=== PATIENT | male | born 1975 | race Caucasian/White ===

== ENCOUNTER → 2020-05-24 15:34 | Outpatient (BNVA) | payer MEDICARE, MEDICAID, SELFPAY | PROVIDERS: PCP Internal Medicine; Visit Provider Family Medicine Adult Medicine | DX: M47.814 Spondylosis without myelopathy or radiculopathy, thoracic region (principal); M47.816 Spondylosis without myelopathy or radiculopathy, lumbar region; Z79.891 Long term (current) use of opiate analgesic | CPT/HCPCS: 99214 ==

== ENCOUNTER → 2020-07-21 10:59 | Outpatient (BNVA) | payer MEDICARE, MEDICAID, SELFPAY | PROVIDERS: PCP Internal Medicine; Referring Provider Internal Medicine; Visit Provider Family Medicine Adult Medicine | DX: M47.816 Spondylosis without myelopathy or radiculopathy, lumbar region (principal); M47.814 Spondylosis without myelopathy or radiculopathy, thoracic region | CPT/HCPCS: 99212 ==

== ENCOUNTER → 2020-09-15 11:24 | Outpatient (BNVA) | payer MEDICARE, MEDICAID, SELFPAY | PROVIDERS: PCP Internal Medicine; Referring Provider Internal Medicine; Visit Provider Family Medicine Adult Medicine | DX: M47.816 Spondylosis without myelopathy or radiculopathy, lumbar region (principal); M47.814 Spondylosis without myelopathy or radiculopathy, thoracic region; Z79.891 Long term (current) use of opiate analgesic | CPT/HCPCS: 99212 ==

== ENCOUNTER → 2020-09-21 14:36 | Outpatient (BNVA) | payer MEDICARE, MEDICAID, SELFPAY | PROVIDERS: PCP Internal Medicine; Visit Provider Anesthesiology | DX: M47.816 Spondylosis without myelopathy or radiculopathy, lumbar region (principal); M47.814 Spondylosis without myelopathy or radiculopathy, thoracic region; M53.3 Sacrococcygeal disorders, not elsewhere classified | CPT/HCPCS: Q3014 ==

== ENCOUNTER → 2020-10-18 13:54 | Outpatient (BNVA) | payer MEDICARE, MEDICAID, SELFPAY | PROVIDERS: PCP Internal Medicine; Visit Provider Family Medicine Adult Medicine | DX: M47.816 Spondylosis without myelopathy or radiculopathy, lumbar region (principal); M47.814 Spondylosis without myelopathy or radiculopathy, thoracic region; Z79.899 Other long term (current) drug therapy | CPT/HCPCS: 99212 ==

== ENCOUNTER 2020-11-29 06:05 | Outpatient (REF) | payer MEDICARE, MEDICAID, SELFPAY ==
--- NOTE | ~2020-11-29 | FL_ITS ---
EXAMINATION: XR FLUOROSCOPY WITH IMAGES CLINICAL INFORMATION: M53.3 - Sacrococcygeal disorders COMPARISON: Radiographs sacroiliac joints 07/14/2018 TECHNIQUE: Fluoroscopy performed by Graciela Cheatham NP. Fluoroscopy time: 0.2 minutes DAP: 1.72 Gycm2 Images: 2 FINDINGS: There is a spinal needle with tip just beyond the anterior cortex lower coccyx. There is contrast seen in the presacral coccygeal soft tissues. No visible vascular communication. FL/FL guidance in treatment room IMPRESSION: Fluoroscopy for pain management procedure.
== END 2020-11-29 06:06 | disposition home or self-care (01) ==
LOC: HO.RADIR 06:05
PROVIDERS: Visit Provider Anesthesiology
DX: M53.3 Sacrococcygeal disorders, not elsewhere classified (principal); M47.816 Spondylosis without myelopathy or radiculopathy, lumbar region; M47.814 Spondylosis without myelopathy or radiculopathy, thoracic region; Z88.8 Allergy status to other drugs, medicaments and biological substances
CPT/HCPCS: 64999; 77002; J3300

== ENCOUNTER → 2020-12-13 08:34 | Outpatient (BNVA) | payer MEDICARE, MEDICAID, SELFPAY | PROVIDERS: PCP Internal Medicine; Visit Provider Family Medicine Adult Medicine | DX: M47.816 Spondylosis without myelopathy or radiculopathy, lumbar region (principal); M47.814 Spondylosis without myelopathy or radiculopathy, thoracic region; M53.3 Sacrococcygeal disorders, not elsewhere classified | CPT/HCPCS: 99212 ==

== ENCOUNTER 2020-12-13 09:05 | Emergency (ER) | payer MEDICARE, MEDICAID, SELFPAY ==
[2020-12-13 09:12] VITALS: BP 104/74; PULSE 82; RESP 18; TEMP 36.5; O2SAT 98; BMI 27.3
--- NOTE | 2020-12-13 09:21 | ED.WOUNDLAC ---
HPI - Wound/Laceration General Chief Complaint: Wound/Laceration Stated Complaint: finger laceration Time Seen by Provider: 12/13/20 09:20 Source: patient Mode of arrival: ambulatory Limitations: no limitations History of Present Illness HPI narrative: 45 y/o male with history of chronic Lyme Disease, bipolar disorder, chronic back pain s/p recent injections on Suboxone 24 mg per day who presents to the ED with a left index finger laceration that he accidentally sustained while using his pocket knife this morning. He states there was a lot of bleeding initially and he had a hard time stopping it. With direct pressure, bleeding was stopped. He is able to fully bend and extend his finger. He has no numbness, tingling or weakness. Tdap is not up to date. Onset (ago): hour(s) (2) Place: home Patient tetanus UTD: No Context: accidental Associated symptoms: pain Treatments prior to arrival: bandage Related Data Home Medications Medication Instructions Recorded Confirmed clonazepam 0.5 mg tablet 0.5 mg PO TID PRN 05/14/20 05/24/20 docusate sodium 100 mg capsule 100 mg PO BID 05/14/20 05/24/20 fluticasone propionate 50 2 spray INTRANASAL DAILY 05/14/20 05/24/20 mcg/actuation nasal spray,suspension lactulose 10 gram/15 mL oral 5 ml PO Q12H 05/14/20 05/24/20 solution omeprazole 20 mg capsule,delayed 20 mg PO QAM 05/14/20 05/24/20 release sildenafil 100 mg tablet 100 mg PO DAILY PRN 05/14/20 05/24/20 tamsulosin 0.4 mg capsule 0.4 mg PO BEDTIME 05/14/20 05/24/20 omeprazole 40 mg capsule,delayed 40 mg PO DAILY 09/21/20 release sucralfate 100 mg/mL oral 10 ml PO 09/21/20 suspension Previous Rx's Medication Instructions Recorded naproxen 500 mg tablet 500 mg PO BID 90 Days #180 tab 08/15/20 buprenorphine 8 mg-naloxone 2 mg 1 film BUCCAL Q8H 30 Days #90 ea 12/13/20 sublingual film cephalexin 500 mg PO TID #9 cap 12/13/20 cyclobenzaprine 10 mg tablet 10 mg PO Q8H 90 Days #270 tab 05/04/21 topiramate 50 mg tablet 50 mg PO TID 90 Days #270 tab 12/13/20 Allergies Allergy/AdvReac Type Severity Reaction Status Date / Time 1st Medx-Patch/ Lidocaine Allergy Unknown Unknown Uncoded 10/18/20 14:18 NSAIDS Allergy Unknown Unknown Uncoded 10/18/20 14:18 Review of Systems Review of Systems: Constitutional: No Fever, No Chills Gastrointestinal: No Nausea, No Vomiting Musculoskeletal: + joint pain, No Myalgias Skin: + Skin Lesions, No rash Neuro: No Weakness, No Numbness Heme/Lymph: No Bruising PMFSH Past Medical History Attestation statement: The following information was validated with the patient. Medical History Coccydynia History of bipolar disorder Lumbar spondylosis Lyme disease Thoracic spondylosis Social History Social History Advance Directives: Yes Advance Directives Information Provided: Yes Advance Directives on File: No Physical Exam Vital Signs: Vital Signs: Last Vital Signs Temp 97.7 F 12/13/20 09:12 Pulse 82 12/13/20 09:12 Resp 18 12/13/20 09:12 BP 104/74 12/13/20 09:12 Pulse Ox 98 12/13/20 09:12 Body Mass Index 27.3 Appearance: Alert. Oriented X3. No acute distress. HEENT: normal inspection CVS: Normal heart rate and rhythm. Pulses normal. Respiratory: No respiratory distress. Skin: Skin warm and dry. Normal skin color. Normal skin turgor. No rashes. Extremities: dorsal aspect of left index finger with 1.5 cm superficial laceration at the base, deep structures infect. full ROM of all fingers. NV intact distally. Neuro: Oriented X 3. No motor deficit. No sensory deficit. Course Course Course Narrative: 45 y/o male presenting with superficial laceration to left index finger. Amenable to suturing. 2 sutures were placed. TDAP given. Will give ppx Keflex give knife was dirty. Counseled on wound management. Stable for discharge. Procedures Laceration Laceration 1: Site: hand Side (If applicable): left Size (cm): 1.5 Description: linear Depth: simple, single layer Local Anesthetic: lidocaine 2% Amount of anesthesia used (mL): 1 Pre-repair: irrigated extensively and deep structures intact Skin layer closed with: nylon Size (cm): 5-0 Number of sutures: 2 Technique: simple, interrupted Critical Care Time Critical Care Time Critical Care Time: No Discharge Plan Discharge Clinical Impression: Laceration Patient Disposition: Home, Self-Care Instructions: Finger Laceration (ED) Additional Instructions: Two sutures were placed in your laceration. You will need then removed in 7-10 days. Come back to the ER or see your doctor for this. Do not get your wound wet for the next 24 hours. After that you may briefly wash with soap and water, then pat dry. Recommend using Bacitracin or Neosporin 2 times per day. Keep clean and covered. If you develop increased pain, redness, drainage of pus or any other concerning symptom come back to the ER for further evaluation. Prescriptions: New cephalexin 500 mg capsule 500 mg PO TID Qty: 9 RF: 0 No Action naproxen 500 mg tablet 500 mg PO BID 90 Days Qty: 180 RF: 1 omeprazole 20 mg capsule,delayed release(DR/EC) 20 mg PO QAM RF: 0 clonazepam 0.5 mg tablet 0.5 mg PO TID PRNRF: 0 lactulose 10 gram/15 mL solution 5 ml PO Q12H RF: 0 fluticasone propionate 50 mcg/actuation spray,suspension 2 spray intranasal DAILY RF: 0 docusate sodium 100 mg capsule 100 mg PO BID RF: 0 sildenafil 100 mg tablet 100 mg PO DAILY PRNRF: 0 tamsulosin 0.4 mg capsule 0.4 mg PO BEDTIME RF: 0 omeprazole 40 mg capsule,delayed release(DR/EC) 40 mg PO DAILY RF: 0 sucralfate 100 mg/mL suspension 10 ml PO RF: 0 buprenorphine-naloxone [Suboxone] 8-2 mg film 1 film buccal Q8H 30 Days Qty: 90 RF: 1 cyclobenzaprine 10 mg tablet 10 mg PO Q8H 90 Days Qty: 270 RF: 1 topiramate 50 mg tablet 50 mg PO TID 90 Days Qty: 270 RF: 0 Interventions: ED Discharge Assessment Last Done: 12/13/20 09:55 Discharge Date/Time: 12/13/20 09:56
[2020-12-13] MEDS: Diphth,Pertus(ACell),Tet Adult 0.5 ML SYRINGE IM (09:50)
[2020-12-13] MEDS: Lidocaine HCl 2 % MPF 5 ML VIAL INFILTRATI (09:50)
== END 2020-12-13 09:56 | disposition home or self-care (01) ==
PROVIDERS: Emergency Provider Emergency Medicine; PCP Internal Medicine
DX: S61.211A Laceration without foreign body of left index finger without damage to nail, initial encounter (principal); W26.0XXA Contact with knife, initial encounter; Y93.9 Activity, unspecified; Y92.9 Unspecified place or not applicable; Y99.9 Unspecified external cause status
CPT/HCPCS: 12001; 90471; 90715; 99283; 99284

== ENCOUNTER → 2021-01-02 09:44 | Outpatient (BNVA) | payer MEDICARE, MEDICAID, SELFPAY | PROVIDERS: PCP Internal Medicine; Visit Provider Anesthesiology | DX: M47.816 Spondylosis without myelopathy or radiculopathy, lumbar region (principal); M47.814 Spondylosis without myelopathy or radiculopathy, thoracic region; M53.3 Sacrococcygeal disorders, not elsewhere classified | CPT/HCPCS: 99212 ==

== ENCOUNTER → 2021-01-10 08:59 | Outpatient (BNVA) | payer MEDICARE, MEDICAID, SELFPAY | PROVIDERS: PCP Internal Medicine; Visit Provider Family Medicine Adult Medicine | DX: M47.816 Spondylosis without myelopathy or radiculopathy, lumbar region (principal); M47.814 Spondylosis without myelopathy or radiculopathy, thoracic region; M53.3 Sacrococcygeal disorders, not elsewhere classified; Z79.899 Other long term (current) drug therapy | CPT/HCPCS: 99212 ==

== ENCOUNTER → 2021-02-14 09:28 | Outpatient (BNVA) | payer MEDICARE, MEDICAID, SELFPAY | PROVIDERS: PCP Internal Medicine; Visit Provider Family Medicine Adult Medicine | DX: M47.816 Spondylosis without myelopathy or radiculopathy, lumbar region (principal); M47.814 Spondylosis without myelopathy or radiculopathy, thoracic region; M53.3 Sacrococcygeal disorders, not elsewhere classified | CPT/HCPCS: 99212 ==

== ENCOUNTER 2021-02-21 05:47 | Outpatient (REF) | payer MEDICARE, MEDICAID, SELFPAY ==
--- NOTE | ~2021-02-21 | FL_ITS ---
EXAMINATION: XR FLUOROSCOPY WITH IMAGES CLINICAL INFORMATION: Sacrococcygeal disorder versus. COMPARISON: None. TECHNIQUE: Fluoroscopy performed by Graciela Cheatham. Fluoroscopy time: 0.1 minutes DAP: 2.30 Gycm2 Images: 2 FINDINGS: 2 images of the cervical spine reveal needle position centrally in the presacral region with contrast opacifying the sacral soft tissues. No bony abnormality seen involving the sacrum. FL/FL guidance in treatment room IMPRESSION: Fluoroscopy provided to the referring physician as requested.
== END 2021-02-21 05:48 | disposition home or self-care (01) ==
LOC: HO.RADIR 05:47
PROVIDERS: Visit Provider Anesthesiology
DX: M47.816 Spondylosis without myelopathy or radiculopathy, lumbar region (principal); M47.814 Spondylosis without myelopathy or radiculopathy, thoracic region; M53.3 Sacrococcygeal disorders, not elsewhere classified
CPT/HCPCS: 64999; J3300; Q9967

== ENCOUNTER → 2021-03-14 08:05 | Outpatient (BNVA) | payer MEDICARE, MEDICAID, SELFPAY | PROVIDERS: PCP Internal Medicine; Visit Provider Family Medicine Adult Medicine | DX: M47.816 Spondylosis without myelopathy or radiculopathy, lumbar region (principal); M47.814 Spondylosis without myelopathy or radiculopathy, thoracic region; M53.3 Sacrococcygeal disorders, not elsewhere classified | CPT/HCPCS: 99212 ==

== ENCOUNTER → 2021-03-29 09:07 | Outpatient (BNVA) | payer MEDICARE, MEDICAID, SELFPAY | PROVIDERS: PCP Internal Medicine; Visit Provider Anesthesiology | DX: M47.816 Spondylosis without myelopathy or radiculopathy, lumbar region (principal); M47.814 Spondylosis without myelopathy or radiculopathy, thoracic region; M53.3 Sacrococcygeal disorders, not elsewhere classified | CPT/HCPCS: Q3014 ==

== ENCOUNTER → 2021-04-11 15:57 | Outpatient (BNVA) | payer MEDICARE, MEDICAID, SELFPAY | PROVIDERS: PCP Internal Medicine; Visit Provider Family Medicine Adult Medicine | DX: M47.816 Spondylosis without myelopathy or radiculopathy, lumbar region (principal); M47.814 Spondylosis without myelopathy or radiculopathy, thoracic region | CPT/HCPCS: 99212 ==

== ENCOUNTER → 2021-05-09 09:48 | Outpatient (BNVA) | payer MEDICARE, MEDICAID, SELFPAY | PROVIDERS: PCP Internal Medicine; Visit Provider Family Medicine Adult Medicine | DX: Z51.81 Encounter for therapeutic drug level monitoring (principal); M47.814 Spondylosis without myelopathy or radiculopathy, thoracic region | CPT/HCPCS: 99212 ==

== ENCOUNTER 2021-05-16 06:32 | Outpatient (REF) | payer MEDICARE, MEDICAID, SELFPAY ==
--- NOTE | ~2021-05-16 | FL_ITS ---
EXAMINATION: XR FLUOROSCOPY WITH IMAGES CLINICAL INFORMATION: Sacrococcygeal disorders COMPARISON: 02/21/2021 TECHNIQUE: Fluoroscopy performed by Dr. Luis Miranda. Fluoroscopy time: 0.2 minutes DAP: 2.54 Gycm2 Images: 1 FINDINGS: Single lateral image of the sacrococcygeal articulation demonstrates a needle entering from a posterior approach with contrast in the presacral region. FL/FL guidance in treatment room IMPRESSION: Intraoperative fluoroscopy provided as above. Please see operative report.
== END 2021-05-16 06:33 | disposition home or self-care (01) ==
LOC: HO.RADIR 06:32
PROVIDERS: Visit Provider Anesthesiology
DX: M47.816 Spondylosis without myelopathy or radiculopathy, lumbar region (principal); M47.814 Spondylosis without myelopathy or radiculopathy, thoracic region; M53.3 Sacrococcygeal disorders, not elsewhere classified; A69.20 Lyme disease, unspecified; Z88.8 Allergy status to other drugs, medicaments and biological substances
CPT/HCPCS: 64999; J3300; Q9967

== ENCOUNTER → 2021-06-06 10:36 | Outpatient (BNVA) | payer MEDICARE, MEDICAID, SELFPAY | PROVIDERS: PCP Pediatrics; Visit Provider Family Medicine Adult Medicine | DX: Z51.81 Encounter for therapeutic drug level monitoring (principal) | CPT/HCPCS: 99211 ==

== ENCOUNTER → 2021-06-14 08:58 | Outpatient (BNVA) | payer MEDICARE, MEDICAID, SELFPAY | PROVIDERS: PCP Pediatrics; Visit Provider Anesthesiology | DX: M47.816 Spondylosis without myelopathy or radiculopathy, lumbar region (principal); M47.814 Spondylosis without myelopathy or radiculopathy, thoracic region; M53.3 Sacrococcygeal disorders, not elsewhere classified | CPT/HCPCS: 99212 ==

== ENCOUNTER → 2021-06-29 14:18 | Outpatient (BNVA) | payer MEDICARE, MEDICAID, SELFPAY | PROVIDERS: PCP Pediatrics; Visit Provider Family Medicine Adult Medicine | DX: M47.816 Spondylosis without myelopathy or radiculopathy, lumbar region (principal); M47.814 Spondylosis without myelopathy or radiculopathy, thoracic region; M53.3 Sacrococcygeal disorders, not elsewhere classified; F31.9 Bipolar disorder, unspecified; Z88.4 Allergy status to anesthetic agent; Z88.8 Allergy status to other drugs, medicaments and biological substances; Z79.899 Other long term (current) drug therapy | CPT/HCPCS: 99212 ==

== ENCOUNTER 2021-07-11 06:48 | Outpatient (REF) | payer MEDICARE, MEDICAID, SELFPAY ==
--- NOTE | ~2021-07-11 | FL_ITS ---
EXAMINATION: XR FLUOROSCOPY WITH IMAGES CLINICAL INFORMATION: M53.3 - Sacrococcygeal disorders, not elsewhere classified COMPARISON: Fluoroscopic spot views 05/16/2021, 6 02/21/2021 TECHNIQUE: Fluoroscopy performed by Dr. Luis Miranda. Fluoroscopy time: 0.7 minutes DAP: 2.51 Gycm2 Images: 8 FINDINGS: There are spinal needles overlying the bilateral outer L2, L3, L4, and L5 neural foramen. There is contrast seen in the respective nerve sheaths. Some early transforaminal epidural extension is suggested. No visible vascular communication. There are degenerative changes with variable vertebral body spurring. FL/FL guidance in treatment room IMPRESSION: Fluoroscopy for pain management procedures.
== END 2021-07-11 06:49 | disposition home or self-care (01) ==
LOC: HO.RADIR 06:48
PROVIDERS: Visit Provider Anesthesiology
DX: M47.816 Spondylosis without myelopathy or radiculopathy, lumbar region (principal); M47.814 Spondylosis without myelopathy or radiculopathy, thoracic region; M53.3 Sacrococcygeal disorders, not elsewhere classified
CPT/HCPCS: 64493; 64494; Q9967

== ENCOUNTER → 2021-07-20 09:17 | Outpatient (BNVA) | payer MEDICARE, MEDICAID, SELFPAY | PROVIDERS: PCP Pediatrics; Visit Provider Anesthesiology | DX: M47.816 Spondylosis without myelopathy or radiculopathy, lumbar region (principal); M47.814 Spondylosis without myelopathy or radiculopathy, thoracic region; M53.3 Sacrococcygeal disorders, not elsewhere classified | CPT/HCPCS: Q3014 ==

== ENCOUNTER 2021-08-08 06:00 | Outpatient (REF) | payer MEDICARE, MEDICAID, SELFPAY ==
--- NOTE | ~2021-08-08 | FL_ITS ---
EXAMINATION: XR FLUOROSCOPY WITH IMAGES CLINICAL INFORMATION: M47.816 - Spondylosis without myelopathy or radiculopathy COMPARISON: Fluoroscopic spot views 07/11/2021. TECHNIQUE: Fluoroscopy performed by Dr. Luis Miranda. Fluoroscopy time: 1.2 minutes DAP: 9.87 Gycm2 Images: 2 FINDINGS: There are needles overlying the bilateral outer L2, L3, L4, and L5 neural foramen. FL/FL guidance in treatment room IMPRESSION: Fluoroscopy for pain management procedures.
== END 2021-08-08 06:01 | disposition home or self-care (01) ==
LOC: HO.RADIR 06:00
PROVIDERS: Visit Provider Anesthesiology
DX: M47.816 Spondylosis without myelopathy or radiculopathy, lumbar region (principal); M47.814 Spondylosis without myelopathy or radiculopathy, thoracic region; M53.3 Sacrococcygeal disorders, not elsewhere classified
CPT/HCPCS: 64635; 64636; J3300

== ENCOUNTER 2021-09-05 08:24 | Outpatient (REF) | payer MEDICARE, MEDICAID, SELFPAY ==
--- NOTE | ~2021-09-05 | FL_ITS ---
EXAMINATION: XR FLUOROSCOPY WITH IMAGES CLINICAL INFORMATION: Sacrococcygeal disorder. COMPARISON: None. TECHNIQUE: Fluoroscopy performed by Graciela Cheatham. Fluoroscopy time: 0.1 minutes DAP: 1.12 Gycm2 Images: 1 FINDINGS: There is needle positioned in the lower sacrococcygeal space with contrast opacifying the space on a single lateral view. No gross bony abnormality. FL/FL guidance in treatment room IMPRESSION: Fluoroscopy was provided to referring physician for pain management
== END 2021-09-05 08:25 | disposition home or self-care (01) ==
LOC: HO.RADIR 08:24
PROVIDERS: Visit Provider Anesthesiology
DX: M47.816 Spondylosis without myelopathy or radiculopathy, lumbar region (principal); M47.814 Spondylosis without myelopathy or radiculopathy, thoracic region; M53.3 Sacrococcygeal disorders, not elsewhere classified
CPT/HCPCS: 64999; 76000; J3300; Q9967

== ENCOUNTER → 2021-09-19 08:01 | Outpatient (BNVA) | payer MEDICARE, MEDICAID, SELFPAY | PROVIDERS: PCP Pediatrics; Visit Provider Anesthesiology | DX: M47.816 Spondylosis without myelopathy or radiculopathy, lumbar region (principal); M47.814 Spondylosis without myelopathy or radiculopathy, thoracic region; M53.3 Sacrococcygeal disorders, not elsewhere classified | CPT/HCPCS: Q3014 ==

== ENCOUNTER → 2022-04-25 08:39 | Outpatient (BNVA) | payer MEDICARE, MEDICAID, SELFPAY | PROVIDERS: PCP Pediatrics; Visit Provider Anesthesiology | DX: M47.816 Spondylosis without myelopathy or radiculopathy, lumbar region (principal); M47.814 Spondylosis without myelopathy or radiculopathy, thoracic region; M53.3 Sacrococcygeal disorders, not elsewhere classified; M46.1 Sacroiliitis, not elsewhere classified; G89.4 Chronic pain syndrome | CPT/HCPCS: 99212 ==

== ENCOUNTER 2022-05-15 06:04 | Outpatient (REF) | payer MEDICARE, MEDICAID, SELFPAY ==
--- NOTE | ~2022-05-15 | FL_ITS ---
EXAMINATION: XR FLUOROSCOPY WITH IMAGES CLINICAL INFORMATION: M53.3 - Sacrococcygeal disorders, not elsewhere classified COMPARISON: Radiographs sacroiliac joints 07/14/2018 TECHNIQUE: Fluoroscopy performed by Dr. Luis Miranda. Fluoroscopy time: 0.2 minutes. Cumulative Dose: 5.28 mGy. DAP: 1.44 Gy-cm2. Images: 2. FINDINGS: Spinal needle overlies mid to lower left SI joint and a spinal needle overlies the mid to lower right SI joint. There is contrast in the periarticular soft tissues with probable early intra-articular contrast. No vasculature communication appreciated. FL/FL guidance in treatment room IMPRESSION: Fluoroscopy for pain management procedures.
== END 2022-05-15 06:05 | disposition home or self-care (01) ==
LOC: CF 06:04
PROVIDERS: Visit Provider Anesthesiology
DX: M53.3 Sacrococcygeal disorders, not elsewhere classified (principal); M46.1 Sacroiliitis, not elsewhere classified
CPT/HCPCS: 27096; Q9965

== ENCOUNTER → 2022-05-17 08:33 | Outpatient (BNVA) | payer MEDICARE, MEDICAID, SELFPAY | PROVIDERS: PCP Pediatrics; Visit Provider Anesthesiology | DX: M47.816 Spondylosis without myelopathy or radiculopathy, lumbar region (principal); M47.814 Spondylosis without myelopathy or radiculopathy, thoracic region; M53.3 Sacrococcygeal disorders, not elsewhere classified; M46.1 Sacroiliitis, not elsewhere classified; G89.4 Chronic pain syndrome | CPT/HCPCS: 99212 ==

== ENCOUNTER 2022-08-10 05:59 | Day surgery (SDC) | payer MEDICARE, MEDICAID, SELFPAY ==
--- NOTE | 2022-08-09 09:13 | HO.ANESPROP2 ---
Documented by User: Gisselle Valadez NP 08/09/22 09:17 HPI - Anesthesia Eval Consult details Narrative: 46yo M for Right Sacroiliac Joint Stabilization with Fusion Suboxone daily for chronic pain PMFSH Active Problems Active Problems: All Active Problems (Updated 08/03/22 @ 13:40 by Allegra Ontiveros, RN) Sacroiliitis (Acute) Sacroiliac joint dysfunction (Acute) Chronic pain syndrome (Acute) Dental abscess (Acute) Coccydynia (Acute) Lumbar spondylosis (Acute) Thoracic spondylosis (Acute) Past Medical History Medical History (Updated 08/03/22 @ 13:40 by Allegra Ontiveros, RN) Coccydynia Dental abscess Enlarged prostate GERD (gastroesophageal reflux disease) History of alcohol use History of bipolar disorder Hx of pancreatitis Lumbar spondylosis Lyme disease Thoracic spondylosis Surgical History Surgical History (Updated 08/03/22 @ 13:38 by Allegra Ontiveros RN) History of tonsillectomy and adenoidectomy Hx of oral surgery Social History Social History Patient Tobacco Use Status: Former Tobacco user Use of substances other than those prescribed or required for medical reasons: No Are you DNR?: No Advance Directives: No Advance Directives Information Provided: Yes Meds Allergies Allergy/AdvReac Type Severity Reaction Status Date / Time NSAIDS (Non-Steroidal Allergy Intermediate Abdominal Verified 08/03/22 12:59 Anti-Inflamma Pain/Bleeding Home Medications Medication Instructions Recorded Confirmed Last Taken Type clonazepam 0.5 mg tablet 0.5 mg PO TID PRN Anxiety 05/14/20 08/03/22 08/10/22 History fluticasone propionate 50 2 spray intranasal DAILY 05/14/20 08/03/22 08/10/22 History mcg/actuation nasal spray,suspension lactulose 10 gram/15 mL oral 5 ml PO Q12H 05/14/20 08/03/22 Unknown History solution sildenafil 100 mg tablet 100 mg PO DAILY PRN Sexual Activity 05/14/20 08/03/22 Unknown History tamsulosin 0.4 mg capsule 0.4 mg PO BEDTIME 05/14/20 08/03/22 Unknown History omeprazole 40 mg capsule,delayed 40 mg PO DAILY 09/21/20 08/03/22 08/10/22 History release bisacodyl 5 mg tablet,delayed 5 mg PO BID PRN constipation 06/14/21 08/03/22 Unknown History release buprenorphine 4 mg-naloxone 1 mg 5 mg sublingual Q8H pain 08/08/21 08/03/22 Unknown History sublingual film buprenorphine HCl 600 mcg buccal 600 mcg buccal Q12H 08/08/21 08/03/22 Unknown History film ([place]uca) trazodone 100 mg tablet 200 mg PO BEDTIME PRN as directed 08/08/21 08/03/22 Unknown History topiramate 50 mg tablet 50 mg PO BEDTIME 08/03/22 08/03/22 Unknown History Exam Exam Date and Time: August 09, [id number] Assessment and Plan Assessment Anesthesia Assessment: Chart Reviewed Documented by User: Huy Devine MD 08/10/22 08:05 [facility] Past Medical History Medical History (Updated 08/03/22 @ 13:40 by Allegra Ontiveros, RN) Coccydynia Dental abscess Enlarged prostate GERD (gastroesophageal reflux disease) History of alcohol use History of bipolar disorder Hx of pancreatitis Lumbar spondylosis Lyme disease Thoracic spondylosis Family History Family history of problems with anesthesia: No Surgical History Surgical History (Updated 08/03/22 @ 13:38 by Allegra Ontiveros, RN) History of tonsillectomy and adenoidectomy Hx of oral surgery History of Problems with Anesthesia: No Social History Social History Patient Tobacco Use Status: Former Tobacco user Use of substances other than those prescribed or required for medical reasons: No Are you DNR?: No Advance Directives: No Advance Directives Information Provided: Yes Meds Allergies Allergy/AdvReac Type Severity Reaction Status Date / Time NSAIDS (Non-Steroidal Allergy Intermediate Abdominal Verified 08/03/22 12:59 Anti-Inflamma Pain/Bleeding Home Medications Medication Instructions Recorded Confirmed Last Taken Type clonazepam 0.5 mg tablet 0.5 mg PO TID PRN Anxiety 05/14/20 08/03/22 08/10/22 History fluticasone propionate 50 2 spray intranasal DAILY 05/14/20 08/03/22 08/10/22 History mcg/actuation nasal spray,suspension lactulose 10 gram/15 mL oral 5 ml PO Q12H 05/14/20 08/03/22 Unknown History solution sildenafil 100 mg tablet 100 mg PO DAILY PRN Sexual Activity 05/14/20 08/03/22 Unknown History tamsulosin 0.4 mg capsule 0.4 mg PO BEDTIME 05/14/20 08/03/22 Unknown History omeprazole 40 mg capsule,delayed 40 mg PO DAILY 09/21/20 08/03/22 08/10/22 History release bisacodyl 5 mg tablet,delayed 5 mg PO BID PRN constipation 06/14/21 08/03/22 Unknown History release buprenorphine 4 mg-naloxone 1 mg 5 mg sublingual Q8H pain 08/08/21 08/03/22 Unknown History sublingual film buprenorphine HCl 600 mcg buccal 600 mcg buccal Q12H 08/08/21 08/03/22 Unknown History film ([place]uca) trazodone 100 mg tablet 200 mg PO BEDTIME PRN as directed 08/08/21 08/03/22 Unknown History topiramate 50 mg tablet 50 mg PO BEDTIME 08/03/22 08/03/22 Unknown History Exam Airway Mallampati Class: II TM Dist: >3cm Neck ROM: Full Denture: Upper and Lower Heart: rrr Lungs: clear Assessment and Plan Final Anesthetic Review Family History of Problems with Anesthesia: No History of Problems with Anesthesia: No NPO: Yes ASA Class: II Final Preanesthetic Review: No Changes in Pt Med Stat, Meds/Allgs Chart Reviewed, Consent Obtained/Reviewed and Anes Risks/Benef Reviewed Patient Risk: Intermediate Procedure Risk: Low Anesthetic Plan Anesthetic Plan: GA Disposition: Standard PACU
--- NOTE | 2022-08-09 16:55 | MHC.SHP ---
Pre-Procedural Eval Section A Date of Service: 08/09/22 The patient is an INPATIENT: No Changes since office visit: Yes Patient answered all questions The History & Physical has been completed within 30 days and I have reviewed it.: No Section B Chief Complaint: Sacroiliitis, not elsewhere classified Details of Present Illness: as above Relevant Family History (Specify if Yes): No Relevant Social History: None Present Medications: None Medical History: No relevant PMH History of Previous Operations: Relevant previous surgery/procedure and date(s) Allergies: Allergies Allergy/AdvReac Type Severity Reaction Status Date / Time NSAIDS (Non-Steroidal Allergy Intermediate Abdominal Verified 08/03/22 12:59 Anti-Inflamma Pain/Bleeding Review of Systems Sugical H&P ROS: Negative: Constitution, Cardiovascular, Respiratory, Neurological, Psychiatric, Hem-Onc, Allergic/Immunologic, Gastrointestinal, Genitourinary, Musculoskeletal, Integumentary, Endocrine and Eyes/Ears/Nose/Throat Exam Surgical H&P Exam: Normal: HEENT, Normal: Heart, Normal: Lungs, Normal: Extremities, Normal: Abdomen, Normal: Skin and Normal: Neurological Plan Diagnosis/Plan: Unchanged I have reviewed the history and physical and performed a pertinent physical examination on my patient. No changes have occurred unless specified. Time Spent With Patient Time: Total time managing care of this patient today ____ minutes.
[2022-08-10] VITALS (14 sets, daily range): BP systolic 108–131; BP diastolic 68–87; PULSE 63–80; RESP 12–16; TEMP 36.2–36.6; O2SAT 95–99; BMI 27.2
--- NOTE | ~2022-08-10 | FL_ITS ---
EXAMINATION: FL FLUOROSCOPY WITH IMAGES CLINICAL INFORMATION: SI joint stabilization fusion. COMPARISON: None TECHNIQUE: Fluoroscopy Supervised By: Dr. Luis Miranda. Fluoroscopy Time: 2.9 minutes. Cumulative Dose: 48.7 mGy. DAP: 13.2 Gy-cm2. Images: 9. FINDINGS: There are several images of right SI joint revealing surgical insertion of a metallic fusion device at the SI joint. No gross bony abnormality seen. FL/FL guidance in OR IMPRESSION: Fluoroscopy guidance was provided to referring physician for right SI joint stabilization.
[2022-08-10] MEDS: Lactated Ringers 1,000 ML 100 ML IVCONT (06:38)
--- NOTE | 2022-08-10 07:45 | P.OP_ITS ---
Operative Note Operative Note Date of Service: 08/10/22 Narrative: Right Sacroiliac joint stabilisation procedure. posterior sacroiliac joint fusion using LINQ SI joint stabilization system with C-arm fluoroscopy for guidance.? ?Sylvester is very pleasant 46 y.o. old male who is suffering from the Right sacroiliac joint insufficiency and sacroiliitis on the? right.??He failed conservative management of sacroiliitis.?? He came today to receive the procedures as above.??The risks and benefits including bleeding, infection, peripheral nerve damage, failure to reduce the pain were explained to the patient.?The patient came to the operating room, he was positioned on the stretcher supine, [employer] monitors were applied and patient was administered with general endotracheal anesthesia.??After that the patient was transferred on operating table and positioned prone with all pressure points protected. The patient was administered 2 grams cefazolin IV approximately 25 minutes before the start of the procedure.? Time-out was performed delineating correct site, side, and nature of the procedure, name and date of of the patient, risk of fire, need for DVT prophylaxis, need for antibiotics.? The patient was transferred?on?radiolucent table. All pressure points were protected . Lower back and bilateral buttocks were prepped with ChloraPrep and draped with full body drape.? C-arm was brought over the up with? operating? field and sq picture of the patient? pelvis was demonstrated on the screen.Tilting Machine contralateral to the joint the image was obtained on which the the posterior and anterior portions of the joint became superimposed. ?3. 5 cm posterior paramedian incision was performed.? Soft tissue dissection done to sacroiliac joint and thorough blind dissection was made in the direction of the?sacroiliac joint.? K-wire pin was inserted into the sacroiliac joint and guiding instrument was inserted into the joint using the pin as a guide and advanced into the joint on the intermittent anterior posterior and lateral views.?The patient had a very prominent PSIS and to avoid driving the pin and eventually guiding instrument toward the sacroiliac joint required multiple attenmpts to accomplish a proper position. Finally we reached a satisfactory position of the guiding instrument?in the sacroiliac joint(see fluoroscopy images.)? After that pin was removed and rasping device was inserted to broach and rasp sacroiliac joint.? Once joint was prepared and inserted the structural allograft implant was hammered into the joint . It was packed with ortho biologics in and around the implant to provide better opportunity? for bones fusion.? The position of the allograft was confirmed radiographically.? The wound was irrigated, hemostasis was achieved by using electrocautery and the deep bleeding of the wound from the scratched bony surfaces was arrested by applying resorbable surgicel tissue. Pressue was applied for three minutes and bleeding stopped. The decision was made to leave the surgiceltissue in the wound against the scrapped bones. The wound after that was irrigated with vancomycin containing saline and it was closed in 2 layers.? 0 Polysorb suture was used to close the wound? and Polisorb 0-2 was used approximate the levels of the skin.? Claude were applied to the skin level. ? ? Sterile?dressing was applied with bacitracin ointment .? The patient tolerated procedure well, he was awaken, extubated and taken outside of the operating room to PACU where he recovered uneventfully. He will be wearing an SI joint fixation belt for the next 10 weeks after the procedure.
--- NOTE | 2022-08-10 07:48 | PM.OP ---
Brief Operative Note Date of Service: 08/10/22 Pre-op diagnosis: sacroiliitis, right SI joint insuficiensy Procedure: Sacroiliac joint stabilisation procedure. posterior sacroiliac joint fusion using LINQ SI joint stabilization system with C-arm fluoroscopy for guidance.? Implants: allograft bone with orthobiologics Surgeon: Luis Miranda MD Anesthesia: GETA Was an Public Address Systems Mechanic used for this Procedure?: No Estimated blood loss (mL): 60 Pathology: none sent Condition: stable Disposition: PACU
[2022-08-10] MEDS: oxyCODONE HCl Immed Release 5 MG TABLET PO (10:21)
[2022-08-10] MEDS: Acetaminophen 1,000 MG/100 ML PIGGYBACK 400 MG IV (10:42)
[2022-08-10] MEDS: fentaNYL citrate/PF 100 MCG/2 ML VIAL 25 MCG IVPUSH ×3 (10:45→11:12)
== END 2022-08-10 11:50 | disposition home or self-care (01) ==
LOC: HO.SSS 06:00
PROVIDERS: PCP Pediatrics; Visit Provider Anesthesiology
PROC: (CPT 27279; principal; 2022-08-10 07:30)
DX: M46.1 Sacroiliitis, not elsewhere classified (principal)
CPT/HCPCS: 27279; C1713; J0131; J0330; J0690; J1100; J2250; J2405; J2795; J3010; J3370

== ENCOUNTER → 2022-08-16 09:43 | Outpatient (BNVA) | payer MEDICARE, MEDICAID, SELFPAY | PROVIDERS: PCP Pediatrics; Visit Provider Anesthesiology | DX: M46.1 Sacroiliitis, not elsewhere classified (principal); M53.3 Sacrococcygeal disorders, not elsewhere classified; M47.816 Spondylosis without myelopathy or radiculopathy, lumbar region; M47.814 Spondylosis without myelopathy or radiculopathy, thoracic region | CPT/HCPCS: 99212 ==

== ENCOUNTER → 2022-08-23 09:41 | Outpatient (BNVA) | payer MEDICARE, MEDICAID, SELFPAY | PROVIDERS: PCP Pediatrics; Visit Provider Anesthesiology | DX: M47.816 Spondylosis without myelopathy or radiculopathy, lumbar region (principal); M47.814 Spondylosis without myelopathy or radiculopathy, thoracic region; M53.3 Sacrococcygeal disorders, not elsewhere classified; M46.1 Sacroiliitis, not elsewhere classified; G89.4 Chronic pain syndrome | CPT/HCPCS: 99212 ==

== ENCOUNTER → 2022-10-17 09:56 | Outpatient (BNVA) | payer MEDICARE, MEDICAID, SELFPAY | PROVIDERS: PCP Pediatrics; Visit Provider Anesthesiology | DX: M53.3 Sacrococcygeal disorders, not elsewhere classified (principal); M46.1 Sacroiliitis, not elsewhere classified; M47.814 Spondylosis without myelopathy or radiculopathy, thoracic region; M47.816 Spondylosis without myelopathy or radiculopathy, lumbar region; G89.4 Chronic pain syndrome | CPT/HCPCS: 99212 ==

== ENCOUNTER 2022-10-25 12:45 | Outpatient (REF) | payer MEDICARE, MEDICAID, SELFPAY ==
--- NOTE | ~2022-10-25 | XR_ITS ---
EXAMINATION: XR PELVIS CLINICAL INFORMATION: Pain. COMPARISON: Fluoroscopy dated 08/10/2022; radiographs dated 07/14/2018. TECHNIQUE: AP and lateral views of the pelvis is submitted. FINDINGS: The bones and soft tissues are normal. No fracture. Sacroiliac and hip joints are normal. Orthopedic hardware is again applied to the right sacroiliac joint. Pubic symphysis is normal. No abnormal soft tissue calcifications. XR/XR pelvis min 3V IMPRESSION: There are postoperative changes consistent with prior right sacroiliac joint stabilization fusion. The bilateral sacroiliac joints are symmetric and well-maintained. No fracture or dislocation is seen.
== END 2022-10-25 12:46 | disposition home or self-care (01) ==
LOC: HO.XRAY 12:45
PROVIDERS: PCP Pediatrics; Visit Provider Anesthesiology
DX: M46.1 Sacroiliitis, not elsewhere classified (principal); M53.3 Sacrococcygeal disorders, not elsewhere classified
CPT/HCPCS: 72190

== ENCOUNTER → 2022-11-07 08:30 | Outpatient (BNVA) | payer MEDICARE, MEDICAID, SELFPAY | PROVIDERS: PCP Pediatrics; Visit Provider Anesthesiology | DX: M53.3 Sacrococcygeal disorders, not elsewhere classified (principal); M46.1 Sacroiliitis, not elsewhere classified; M47.816 Spondylosis without myelopathy or radiculopathy, lumbar region; M47.814 Spondylosis without myelopathy or radiculopathy, thoracic region; G89.4 Chronic pain syndrome | CPT/HCPCS: Q3014 ==

== ENCOUNTER 2022-12-06 08:51 | Outpatient (REF) | payer MEDICARE, MEDICAID, SELFPAY ==
--- NOTE | ~2022-12-06 | CT_ITS ---
EXAMINATION: CT LUMBAR SPINE WITHOUT CONTRAST CLINICAL INFORMATION: Spondylosis without myelopathy or radiculopathy, lumbar region. COMPARISON: There are no prior studies available for comparison. TECHNIQUE: A noncontrast axial CT scan of the lumbar spine was obtained. Coronal and sagittal reformatted images were generated at the acquisition workstation. This CT examination was performed using dose optimization techniques as appropriate, variously including the following: *Automated exposure control *Adjustment of mA and/or kV according to patient size (this includes techniques or standardized protocols for targeted exams where dose is matched to indication/reason for exam; i.e. extremities or head) *Use of iterative reconstruction technique DLP; 778 mGy-cm FINDINGS: VERTEBRAL BODIES AND PARASPINAL STRUCTURES: There is anatomic alignment of the vertebral bodies. Intervertebral disc heights are maintained. There are Schmorl's nodes in the inferior endplate of L4. The vertebral bodies have normal height and contour no fractures are demonstrated. Bone mineralization appears diffusely decreased. There is a short tubular metallic device in the right sacral ala. The visualized retroperitoneal structures are unremarkable. There is a small sigmoid colon diverticulum which is partially visualized. SPINAL LEVELS: T12-L1: The facet joints appear normal bilaterally. Disc contour is normal. There is no central stenosis or foraminal narrowing. L1-L2: The facet joints appear normal bilaterally. Disc contour is normal. There is no central stenosis or foraminal narrowing. L2-L3: The facet joints appear normal. There is a mild diffuse disc bulge which is more prominent on the left, but there is no central stenosis. The neural foramina appear patent. L3-L4: There is moderate bilateral facet arthropathy. There is a posterior broad-based disc protrusion which flattens the ventral thecal sac but there is no central stenosis. There are small inferior foraminal disc protrusions without exiting nerve root impingement. L4-L5: There is moderate bilateral facet arthropathy. There is a broad-based posterior disc protrusion which flattens the ventral thecal sac and there may be narrowing of the bilateral subarticular recesses. There is no significant central stenosis, and there is no foraminal nerve root impingement. L5-S1: There is moderate bilateral facet arthropathy. There is a broad-based posterior disc protrusion, without significant mass effect on the thecal sac, and there is no traversing nerve root impingement. There is mild right foraminal narrowing and there may be impingement on the exiting right L5 nerve root. CT/CT lumbar spine wo IV con IMPRESSION: 1. At L5-S1 there is moderate facet arthropathy and there is a broad-based posterior disc protrusion. There is no significant mass effect on the thecal sac and there is no traversing nerve root impingement. There is mild right foraminal narrowing and there may be impingement on the exiting right L5 nerve root. 2. At L4-L5 there is moderate facet arthropathy and there is a broad-based posterior disc protrusion. There is no significant central stenosis. There is no foraminal nerve root impingement. 3. There is a short tubular metallic device in the right sacral ala. Correlate with surgical history.
--- NOTE | ~2022-12-06 | CT_ITS ---
EXAMINATION: CT PELVIS WITHOUT CONTRAST CLINICAL INFORMATION: Sacrococcygeal disorder. COMPARISON: Previous fluoroscopic exam most recent July 2022. TECHNIQUE: Helical scanning was performed with submillimeter collimation through the pelvis. Sagittal and coronal multiplanar 2-D reconstructions were obtained. This CT examination was performed using dose optimization techniques as appropriate, variously including the following: *Automated exposure control *Adjustment of mA and/or kV according to patient size (this includes techniques or standardized protocols for targeted exams where dose is matched to indication/reason for exam; i.e. extremities or head) *Use of iterative reconstruction technique DLP: 224 mGy-cm FINDINGS: There is a horseshoe or U shaped screw seen in the right iliac bone. A portion of this device extends into the posterior sacroiliac joint. There is a well-corticated ossification that projects over the posterior sacroiliac joint measuring 3 x 8 mm for example axial image 37 series 3. There is bony defect in the adjacent sacrum and this may be related to old trauma. The sacroiliac joints are otherwise normal. The hip joints and pubic symphysis are normal. The surrounding soft tissues are normal. Visualized bony structures are normal. The bladder is normal. The prostate gland does not appear enlarged. No ascites or adenopathy. Mild atherosclerotic calcification. No aneurysm. No hernia. CT/CT bony pelvis IMPRESSION: Surgical device or screw in the right iliac bone with small portion extending into the right posterior sacroiliac joint. Well corticated small soft tissue ossification in the posterior sacroiliac joint space likely from old trauma to the adjacent sacrum.
== END 2022-12-06 08:52 | disposition home or self-care (01) ==
LOC: HO.CT 08:51
PROVIDERS: PCP Pediatrics; Visit Provider Anesthesiology
DX: M47.816 Spondylosis without myelopathy or radiculopathy, lumbar region (principal); M53.3 Sacrococcygeal disorders, not elsewhere classified
CPT/HCPCS: 72131; 72192

== ENCOUNTER 2022-12-14 06:44 | Day surgery (SDC) | payer MEDICARE, MEDICAID, SELFPAY ==
--- NOTE | 2022-12-13 09:43 | P.CONAN_ITS ---
Documented by User: Gisselle Valadez NP 12/13/22 09:44 HPI - Anesthesia Eval Consult details Narrative: 47yo M for Left Sacroiliac Joint Stabilization with Fusion s/p same 07/2022 with GA-ETT 7 PMFSH Active Problems Active Problems: All Active Problems (Updated 08/03/22 @ 13:40 by Allegra Ontiveros, RN) Sacroiliitis (Acute) Sacroiliac joint dysfunction (Acute) Chronic pain syndrome (Acute) Dental abscess (Acute) Coccydynia (Acute) Lumbar spondylosis (Acute) Thoracic spondylosis (Acute) Past Medical History Medical History (Updated 08/03/22 @ 13:40 by Allegra Ontiveros RN) Coccydynia Dental abscess Enlarged prostate GERD (gastroesophageal reflux disease) History of alcohol use History of bipolar disorder Hx of pancreatitis Lumbar spondylosis Lyme disease Thoracic spondylosis Family History Family history of problems with anesthesia: No Surgical History Surgical History (Updated 08/03/22 @ 13:38 by Allegra Ontiveros RN) History of tonsillectomy and adenoidectomy Hx of oral surgery History of Problems with Anesthesia: No Social History Social History Patient Tobacco Use Status: Former Tobacco user Second Hand Smoke Exposure: No Meds Allergies Allergy/AdvReac Type Severity Reaction Status Date / Time NSAIDS (Non-Steroidal Allergy Intermediate Abdominal Verified 12/17/22 11:05 Anti-Inflamma Pain/Bleeding Home Medications Medication Instructions Recorded Confirmed Last Taken Type fluticasone propionate 50 2 spray intranasal DAILY 05/14/20 12/11/22 08/10/22 History mcg/actuation nasal spray,suspension tamsulosin 0.4 mg capsule 0.4 mg PO BEDTIME 05/14/20 12/11/22 Unknown History omeprazole 40 mg capsule,delayed 40 mg PO DAILY 09/21/20 12/11/22 08/10/22 History release topiramate 50 mg tablet 50 mg PO BEDTIME 08/03/22 12/11/22 Unknown History acamprosate 333 mg tablet,delayed 666 mg PO TID 08/16/22 12/11/22 Unknown History release gabapentin 100 mg capsule 200 mg PO BEDTIME 08/16/22 12/11/22 Unknown History buprenorphine 4 mg-naloxone 1 mg 8 mg sublingual Q8H pain 10/17/22 12/11/22 Unknown History sublingual film clonazepam 0.5 mg tablet 0.5 mg PO BID PRN Anxiety 10/17/22 12/11/22 Unknown History lamotrigine 25 mg tablet 150 mg PO DAILY 10/17/22 12/11/22 Unknown History Exam Exam Date and Time: December 13, 2022 0940 Assessment and Plan Assessment Anesthesia Assessment: Chart Reviewed Final Anesthetic Review Family History of Problems with Anesthesia: No History of Problems with Anesthesia: No Documented by User: Gordon Benson MD 12/21/22 11:04 REPLACED BY [facility] Past Medical History Medical History (Updated 08/03/22 @ 13:40 by Allegra Ontiveros RN) Coccydynia Dental abscess Enlarged prostate GERD (gastroesophageal reflux disease) History of alcohol use History of bipolar disorder Hx of pancreatitis Lumbar spondylosis Lyme disease Thoracic spondylosis Surgical History Surgical History (Updated 08/03/22 @ 13:38 by Allegra Ontiveros, RN) History of tonsillectomy and adenoidectomy Hx of oral surgery Social History Social History Patient Tobacco Use Status: Former Tobacco user Second Hand Smoke Exposure: No Meds Allergies Allergy/AdvReac Type Severity Reaction Status Date / Time NSAIDS (Non-Steroidal Allergy Intermediate Abdominal Verified 12/17/22 11:05 Anti-Inflamma Pain/Bleeding Home Medications Medication Instructions Recorded Confirmed Last Taken Type fluticasone propionate 50 2 spray intranasal DAILY 05/14/20 12/11/22 08/10/22 History mcg/actuation nasal spray,suspension tamsulosin 0.4 mg capsule 0.4 mg PO BEDTIME 05/14/20 12/11/22 Unknown History omeprazole 40 mg capsule,delayed 40 mg PO DAILY 09/21/20 12/11/22 08/10/22 History release topiramate 50 mg tablet 50 mg PO BEDTIME 08/03/22 12/11/22 Unknown History acamprosate 333 mg tablet,delayed 666 mg PO TID 08/16/22 12/11/22 Unknown H istory release gabapentin 100 mg capsule 200 mg PO BEDTIME 08/16/22 12/11/22 Unknown History buprenorphine 4 mg-naloxone 1 mg 8 mg sublingual Q8H pain 10/17/22 12/11/22 Unknown History sublingual film clonazepam 0.5 mg tablet 0.5 mg PO BID PRN Anxiety 10/17/22 12/11/22 Unknown History lamotrigine 25 mg tablet 150 mg PO DAILY 10/17/22 12/11/22 Unknown History Exam Airway Mallampati Class: II TM Dist: >3cm Neck ROM: Full Heart: ok Lungs: ok Assessment and Plan Assessment Anesthesia Assessment: Anesthesia Plan Discussed Final Anesthetic Review NPO: Yes ASA Class: II Final Preanesthetic Review: No Changes in Pt Med Stat, Meds/Allgs Chart Reviewed, Consent Obtained/Reviewed and Anes Risks/Benef Reviewed Patient Risk: Low Procedure Risk: Intermediate Anesthetic Plan Anesthetic Plan: GA and Agree w/ Assess. and Plan Disposition: Standard PACU
[2022-12-14] VITALS (10 sets, daily range): BP systolic 98–125; BP diastolic 46–78; PULSE 85–94; RESP 12–18; TEMP 36.3–37.3; O2SAT 94–96; BMI 30.5
--- NOTE | ~2022-12-14 | FL_ITS ---
EXAMINATION: XR FLUOROSCOPY WITH IMAGES CLINICAL INFORMATION: SI joint stabilization with fusion. COMPARISON: CT bony pelvis 12/06/2022. TECHNIQUE: Fluoroscopy Supervised By: Dr. Luis Miranda. Fluoroscopy Time: 0.9 minutes. Cumulative Dose: 34.2 mGy. DAP: 8.33 Gycm2. Images: 14. FINDINGS: Initial images demonstrate spinal needle overlying mid left SI joint with needle tip at mid depth. Subsequent images show hardware and a cannulated device overlying the SI joint. There is also hardware contralateral right side is noted on the CT study. FL/FL guidance in OR IMPRESSION: Fluoroscopy for pain management procedure.
--- NOTE | 2022-12-14 08:43 | P.OP_ITS ---
Operative Note Operative Note Date of Service: 08/10/22 Narrative: Left sacroiliac joint stabilisation procedure. posterior sacroiliac joint fusion using LINQ SI joint stabilization system with C-arm fluoroscopy for guidance.? ?Sylvester is very pleasant 46 y.o. old male who is suffering from the Right sacroiliac joint insufficiency and sacroiliitis.??He failed conservative management of sacroiliitis.?? He came today to receive the procedures as above.??The risks and benefits including bleeding, infection, peripheral nerve damage, failure to reduce the pain were explained to the patient.?The patient came to the operating room, he was positioned on the stretcher supine, [place] [employer] monitors were applied and patient was administered with general LMA anesthesia.??After that the patient was transferred on operating table and positioned prone with all pressure points protected. The patient was administered 2 grams cefazolin IV approximately 25 minutes before the start of the procedure.? Time-out was performed delineating correct site, side, and nature of the procedure, name and date of of the patient, risk of fire, need for DVT prophylaxis, need for antibiotics.? The patient was transferred?on?radiolucent table. All pressure points were protected . Lower back and bilateral buttocks were prepped with ChloraPrep and draped with full body drape.? C-arm was brought over the up with? operating? field and sq picture of the patient? pelvis was demonstrated on the screen.Tilting Machine contralateral to the joint the image was obtained on which the the posterior and anterior portions of the joint became superimposed. 22 Gauge 3.5 inch [place] spinal needle was incerted into the sacroiliac joint under AP , oblique and lateral vies. Following the plabe of the needle incertion ?3. 5 cm posterior paramedian incision was performed in the projection of the left SI joint on the oblique view.? Soft tissue dissection done to sacroiliac joint and thorough blind dissection was made in the direction of the?sacroiliac joint.? K-wire dull tip pin was inserted into the sacroiliac joint and guiding instrument was inserted into the joint using the pin as a guide and advanced into the joint on the intermittent anterior posterior and lateral views.?A very prominent PSIS was noted again on the left side as well. Guiding instrument was inserted over the pin and hammered into the SI joint on AP oblique and lateral view. we reached a satisfactory position of the guiding instrument?in the sacroiliac joint(see fluoroscopy images.)? After that pin was removed and rasping device was inserted to broach and rasp sacroiliac joint.? Thorough irrigation through the guiding instrument was performed. Once joint was prepared and inserted the structural allograft implant was hammered into the joint . It was packed with ortho biologics in and around the implant to provide better opportunity? for bones fusion.? The position of the allograft was confirmed radiographically.? The wound was irrigated, hemostasis was achieved by using electrocautery r Pressue was applied for three minutes and bleeding stopped.The wound after that was irrigated with vancomycin containing saline and it was closed in 2 layers.? 0 Polysorb suture was used to close the wound? and Polisorb 0-2 was used approximate the levels of the skin.? Claude were applied to the skin level. ? ? Sterile?dressing was applied with bacitracin ointment .? The patient tolerated procedure well, he was awaken, extubated and taken outside of the operating room to PACU where he recovered uneventfully. He will be wearing an SI joint fixation belt for the next 10 weeks after the procedure.
--- NOTE | 2022-12-14 10:57 | PM.OP ---
Brief Operative Note Date of Service: 12/14/22 Pre-op diagnosis: Sacroiliitis Post-op diagnosis: same Procedure: left SI joint stabilization with fusion LinQ. Implants: cadaver lyophilized bone with orthobiologics . Surgeon: Luis Miranda MD Anesthesia: GLMA Was an Waste Reduction Coordinator used for this Procedure?: No Estimated blood loss (mL): 15 Pathology: none sent Condition: stable Disposition: PACU
[2022-12-14] MEDS: HYDROmorphone HCl 0.5 MG/0.5 ML SYRINGE IVPUSH (11:34)
== END 2022-12-14 12:30 | disposition home or self-care (01) ==
PROVIDERS: PCP Pediatrics; Visit Provider Anesthesiology
PROC: (CPT 0775T; principal; 2022-12-14 08:20)
DX: M53.3 Sacrococcygeal disorders, not elsewhere classified (principal); M46.1 Sacroiliitis, not elsewhere classified; G89.4 Chronic pain syndrome; M46.01 Spinal enthesopathy, occipito-atlanto-axial region; M47.816 Spondylosis without myelopathy or radiculopathy, lumbar region; M47.814 Spondylosis without myelopathy or radiculopathy, thoracic region; M54.50 Low back pain, unspecified; M15.9 Polyosteoarthritis, unspecified; M70.62 Trochanteric bursitis, left hip; M70.61 Trochanteric bursitis, right hip; F31.9 Bipolar disorder, unspecified; Z79.899 Other long term (current) drug therapy; Z79.891 Long term (current) use of opiate analgesic; Z87.891 Personal history of nicotine dependence
CPT/HCPCS: 0775T; C1713; J0690; J1170; J2405; J2795; J3010; J3370

== ENCOUNTER → 2022-12-17 10:56 | Outpatient (BNVA) | payer MEDICARE, MEDICAID, SELFPAY | PROVIDERS: PCP Pediatrics; Visit Provider Anesthesiology | DX: G89.18 Other acute postprocedural pain (principal); G89.4 Chronic pain syndrome; M53.3 Sacrococcygeal disorders, not elsewhere classified; M46.1 Sacroiliitis, not elsewhere classified; M47.816 Spondylosis without myelopathy or radiculopathy, lumbar region; M47.814 Spondylosis without myelopathy or radiculopathy, thoracic region; Z79.891 Long term (current) use of opiate analgesic | CPT/HCPCS: 99212 ==

== ENCOUNTER → 2022-12-27 09:29 | Outpatient (BNVA) | payer MEDICARE, MEDICAID, SELFPAY | PROVIDERS: PCP Pediatrics; Visit Provider Nurse Practitioner Family | DX: M53.3 Sacrococcygeal disorders, not elsewhere classified (principal); M46.1 Sacroiliitis, not elsewhere classified; M47.816 Spondylosis without myelopathy or radiculopathy, lumbar region; G89.4 Chronic pain syndrome | CPT/HCPCS: 99212 ==

== ENCOUNTER → 2023-01-02 09:21 | Outpatient (BNVA) | payer MEDICARE, MEDICAID, SELFPAY | PROVIDERS: PCP Pediatrics; Visit Provider Anesthesiology | DX: M53.3 Sacrococcygeal disorders, not elsewhere classified (principal); M46.1 Sacroiliitis, not elsewhere classified; M47.816 Spondylosis without myelopathy or radiculopathy, lumbar region; G89.4 Chronic pain syndrome | CPT/HCPCS: 99212 ==

== ENCOUNTER 2023-02-18 14:43 | Outpatient (AMB) | payer MEDICARE, MEDICAID, SELFPAY ==
--- NOTE | 2023-02-18 14:53 | MHC.OFFVIS ---
Intake Vital Signs 02/18/23 14:59 Height 5 ft 7 in Weight 204 lb BMI 31.9 BP 132/79 Blood Pressure Location Rt brachial Position Sitting Respiration 16 Pulse 99 Pulse Source Pulse Oximeter Pulse Oximetry (%) 94 Oxygen Delivery Method Room Air Intake Visit Reasons: 2 Month Follow Up Intake Note: patient comes in for 2 months follow up. Allergies NSAIDS (Non-Steroidal Anti-Inflamma Allergy (Intermediate, Verified 02/18/23 14:58) Abdominal Pain/Bleeding HPI HPI Comments History of Present Illness Details Patient is a 47-year-old male presents today 6 weeks status post left SIJ fusion on 12/14/22 . He reports pain in the projection of the sacroiliac joints in the with radiation into bilateral lower extremities is all but gone. However he reports pain in the coccygeal area, coccydynia, which bothers him a lot and gave him inability to seat for prolonged period of time. He also complains pain in the projection of the axial lower back approximately at L4-5 intervertebral interspace. This pain prevents him from flexing forward. It is possible that these vertebrojenic or discogenic pain. He reports excellent results of the fusion. I do believe that would not have to do the follow-up with CT scan done on the position of the bilateral fusion elements. Because I still M trying to avoid steroids in NSAIDs for this patient I will perform ganglion impar for him diagnostic without any steroids. PRIOR : Sylvester is 44 years old gentleman who is in my office reporting severe pain status post iliac joint fusion which was performed on 12/14/2022 he reports unbearable pain.? He continues to wear the sacroiliac joint belt.? He is on chronic Suboxone program and medication which was given to him for pain relief probably is not very adequate for this regimen.? He was given oxycodone which does not have high affinity for partially blocked opioid receptors and at the same time relies on liver function to be transferred to oxymorphone 1 of the metabolites which is more active than oxycodone.? I will change his opioid prescription for hydromorphone today. Dressing changed today the wound is clean, no redness no swelling no pathological discharge, minimal tenderness on palpation.? Chandler are competent.? The wound was she changed with dressing with bacitracin.? Next appointment for the dressing change will be in 1 week. Prior:? Status? post right sacroiliac joint fusion on 08/10/2022.? He is 14 weeks after the procedure.? He reports decreasw of the pain on the right side however he feels on the background of absence of the pain in the right increased pain on the left.? We discussed today possibility of treating his left sacroiliac joint with fusion.? He also has lumbar spine axial pain which is related to facet joint arthropathy bilaterally.? In the past he received bilateral medial branch block L2-L3 L4 dorsal ramus L5 with very good results of pain relief however the radiofrequency ablation following this procedure did not alleviate his pain significantly enough.? I would need to consider in the future performance of a sprint PNS after repeat of the diagnostic medial branch block injection.? We had very long and detailed conversation today and there are multiple social issues in this patient's live which are obstacles to performance of definitive procedures.? We decided to start with left sacroiliac joint stabilization with fusion pain tech.? I examined x-ray on the patient's back and on x-ray 14 weeks after the procedure the fusion element is very well position in the anterior portion of the right sacroiliac joint. He reported 100% pain improvement for 5 hours after the sacroiliac joint diagnostic injection.? He received diagnostic sacroiliac joint injection with ropivacaine alone no more full than 4 cc into each joint.? There were no steroids in the injectate.? He reported increased mobility, he reports better social interactions improved activities of daily living.? This patient is suffering from some psychological conditions which could be an obstacle form receiving the stimulation.? He was sent for the psychological evaluation however he was denied possibility on implantable devices for the treatment of his pain.? Nevertheless the sacroiliac joint fusion does not require psychological evaluation.? He is reporting coccydynia as well as lower back pain.? He had in the past? ganglion impar injection.? This procedure used to help him on the 1st time, however 2nd injection resulted only in pain aggravation.? Previously done injections on this patient's including medial branch blocks and transforaminal epidural steroid injections resulted in no pain improvement. ?RFA resulted in no pain improvement. He is very tall individual and suffers from multiple sites arthritis including ankle arthritis, knee arthritis, lower back facet joint arthritis and spondylosis and sacroiliac joint arthritis.? He also suffers from bilateral hip trochanteric bursitis which previously was treated with steroid injections.? However now with fusion of the sacroiliac joint is steroids will be contraindicated for the treatment of this condition. He is currently taking Suboxone for his pain control prescribed elsewhere. he reports that Suboxone give him not very adequate pain relief.? He had several sessions of physical therapy in the past which were aggravating his pain ? [facility] Medical History Coccydynia Dental abscess Enlarged prostate GERD (gastroesophageal reflux disease) History of alcohol use History of bipolar disorder Hx of pancreatitis Lumbar spondylosis Lyme disease Thoracic spondylosis Surgical History History of tonsillectomy and adenoidectomy Hx of oral surgery Social History Patient Tobacco Use Status: Former Tobacco user Second Hand Smoke Exposure: No Review of Systems Const All systems reviewed & are unremarkable except as noted in HPI and below Physical Exam Vital Signs: Last Vital Signs Pulse 99 02/18/23 14:59 Resp 16 02/18/23 14:59 BP 132/79 02/18/23 14:59 Pulse Ox 94 02/18/23 14:59 Oxygen Delivery Method Room Air 02/18/23 14:59 BMI result Body Mass Index 31.9 Const General: comfortable, no acute distress, well developed, alert and awake Eyes Pupils: Equal, round and reactive pupils present EOM: EOMs intact bilaterally Chest Chest palpation & inspection: normal inspection of the chest Resp Effort & Inspection: normal respiratory effort, able to speak in complete sentences, normal respiratory pattern, no audible wheezes and no cough Cardio Jugular venous distension: no JVD Back/Spine/Pelvis Other: tenderness on palpation in paraspinal spinal region in lumbar spine. Loading test is positive. Range of motion in lumbar spine is preserved. Vikram test is positive bilaterally. Gaenslen test is positive bilaterally. Palpation of the sacral bone and especially caudal spine causes significant tenderness. Palpation of the projection of the sacroiliac joints to the skin is also positive for very significant pain increase. Stinchfield test is positive bilaterally. Neuro Cranial nerves: Yes Equal, round and reactive pupils present Psych Other: Speech and movement: Normal speech and movement present Affect: normal affect Attitude: cooperative Thought process: Normal thought process present Thought content: Normal thought content present Insight: Good insight present (Psych) Judgement: Good judgement present (Psych) Assessment & Plan Assessment & Plan (1) Sacroiliac joint dysfunction: Code(s): M53.3 - Sacrococcygeal disorders, not elsewhere classified (2) Sacroiliitis: Code(s): M46.1 - Sacroiliitis, not elsewhere classified (3) Lumbar spondylosis: Code(s): M47.816 - Spondylosis without myelopathy or radiculopathy, lumbar region (4) Coccydynia: Code(s): M53.3 - Sacrococcygeal disorders, not elsewhere classified (5) Chronic pain syndrome: Code(s): G89.4 - Chronic pain syndrome Plan Patient is a status post left SIJ fusion on 12/14/22 with 70-80 % pain relief in the projection of his left SIJ. At this time I do not believe CT scan is necessary to check the position of the fusion element. I will schedule him for ganglion impar injection in attempt to treat coccydynia. This will be 100% diagnostic injection without any steroids. . Coding Level of Care Code Est Pt Level 3 (59947) Diagnoses Sacroiliac joint dysfunction M53.3 Sacroiliitis M46.1 Lumbar spondylosis M47.816 Coccydynia M53.3 Chronic pain syndrome G89.4
[2023-02-18 14:59] VITALS: BP 132/79; PULSE 99; RESP 16; O2SAT 94; BMI 31.9
== END 2023-02-18 15:16 | disposition home or self-care (01) ==
PROVIDERS: PCP Pediatrics; Visit Provider Anesthesiology
DX: G89.4 Chronic pain syndrome (principal); M53.3 Sacrococcygeal disorders, not elsewhere classified; M46.1 Sacroiliitis, not elsewhere classified; M47.816 Spondylosis without myelopathy or radiculopathy, lumbar region
CPT/HCPCS: 99213

== ENCOUNTER → 2023-02-18 14:43 | Outpatient (BNVA) | payer MEDICARE, MEDICAID, SELFPAY | PROVIDERS: PCP Pediatrics; Visit Provider Anesthesiology | DX: M53.3 Sacrococcygeal disorders, not elsewhere classified (principal); M46.1 Sacroiliitis, not elsewhere classified; M47.816 Spondylosis without myelopathy or radiculopathy, lumbar region; G89.4 Chronic pain syndrome | CPT/HCPCS: 99212 ==

== ENCOUNTER 2023-04-09 05:57 | Outpatient (REF) | payer MEDICARE, MEDICAID, SELFPAY | END 2023-04-09 05:58 | disposition home or self-care (01) | LOC: CF 05:57 | PROVIDERS: Visit Provider Anesthesiology | DX: Z13.89 Encounter for screening for other disorder (principal) ==

== ENCOUNTER 2023-05-06 11:22 | Outpatient (AMB) | payer MEDICARE, MEDICAID, SELFPAY ==
[2023-05-06 11:36] VITALS: BP 134/82; PULSE 99; RESP 16; O2SAT 97; BMI 32.9
--- NOTE | 2023-05-06 11:36 | A.OFFVIS_ITS ---
Intake Vital Signs 05/06/23 11:36 Height 5 ft 7 in Weight 210 lb BMI 32.9 BP 134/82 Blood Pressure Location Rt brachial Position Sitting Respiration 16 Pulse 99 Pulse Source Pulse Oximeter Pulse Oximetry (%) 97 Oxygen Delivery Method Room Air Intake Visit Reasons: Increasing Low back pain Allergies NSAIDS (Non-Steroidal Anti-Inflamma Allergy (Intermediate, Verified 05/06/23 11:36) Abdominal Pain/Bleeding HPI HPI Comments History of Present Illness Details Patient is a 47-year-old male presents today 6 weeks status post left SIJ fusion on 12/14/22 . He reported today that until the end of March he felt himself very good with his pain. He reported excellent mobility and great activities of daily living. He even decided not attend the ganglion impar injection because he felt himself so good. However in March he had very active day with his children and he started to feel his sacroiliac joint pain again. I think he might have dislodged the fusion element. We discussed the options of his treatment today. I offered him a discussion about possible sacroiliac joint external fusion versus sacroiliac joint innervation stimulation. He reminded me that he did not past psychological evaluation will when we considered modes of treatment of his SI joint disorder because of his anxiety, depression, bipolar disorder and PTSD. Therefore no neuromodulation is will be available for this patient. We will be looking into other possibilities to treat his pain. Meanwhile I would like to perform ganglion impar injection for him. Now this will be with steroids. Prior:? Status? post right sacroiliac joint fusion on 08/10/2022.? He is 14 weeks after the procedure.? He reports decreasw of the pain on the right side however he feels on the background of absence of the pain in the right increased pain on the left.? We discussed today possibility of treating his left sacroiliac joint with fusion.? He also has lumbar spine axial pain which is related to facet joint arthropathy bilaterally.? In the past he received bilateral medial branch block L2-L3 L4 dorsal ramus L5 with very good results of pain relief however the radiofrequency ablation following this procedure did not alleviate his pain significantly enough.? I would need to consider in the future performance of a sprint PNS after repeat of the diagnostic medial branch block injection.? We had very long and detailed conversation today and there are multiple social issues in this patient's live which are obstacles to performance of definitive procedures.? We decided to start with left sacroiliac joint stabilization with fusion pain tech.? I examined x-ray on the patient's back and on x-ray 14 weeks after the procedure the fusion element is very well position in the anterior portion of the right sacroiliac joint. He reported 100% pain improvement for 5 hours after the sacroiliac joint diagnostic injection.? He received diagnostic sacroiliac joint injection with ropivacaine alone no more full than 4 cc into each joint.? There were no steroids in the injectate.? He reported increased mobility, he reports better social interactions improved activities of daily living.? This patient is suffering from some psychological conditions which could be an obstacle form receiving the stimulation.? He was sent for the psychological evaluation however he was denied possibility on implantable devices for the treatment of his pain.? Nevertheless the sacroiliac joint fusion does not require psychological evaluation.? He is reporting coccydynia as well as lower back pain.? He had in the past? ganglion impar injection.? This procedure used to help him on the 1st time, however 2nd injection resulted only in pain aggravation.? Previously done injections on this patient's including medial branch blocks and transforaminal epidural steroid injections resulted in no pain improvement. ?RFA resulted in no pain improvement. He is very tall individual and suffers from multiple sites arthritis including ankle arthritis, knee arthritis, lower back facet joint arthritis and spondylosis and sacroiliac joint arthritis.? He also suffers from bilateral hip trochanteric bursitis which previously was treated with steroid injections.? However now with fusion of the sacroiliac joint is steroids will be contraindicated for the treatment of this condition. He is currently taking Suboxone for his pain control prescribed elsewhere. he reports that Suboxone give him not very adequate pain relief.? He had several sessions of physical therapy in the past which were aggravating his pain ? [facility] Medical History Coccydynia Dental abscess Enlarged prostate GERD (gastroesophageal reflux disease) History of alcohol use History of bipolar disorder Hx of pancreatitis Lumbar spondylosis Lyme disease Thoracic spondylosis Surgical History History of tonsillectomy and adenoidectomy Hx of oral surgery Social History Patient Tobacco Use Status: Former Tobacco user Second Hand Smoke Exposure: No Review of Systems Const All systems reviewed & are unremarkable except as noted in HPI and below Physical Exam Vital Signs: Last Vital Signs Pulse 99 05/06/23 11:36 Resp 16 05/06/23 11:36 BP 134/82 05/06/23 11:36 Pulse Ox 97 05/06/23 11:36 Oxygen Delivery Method Room Air 05/06/23 11:36 BMI result Body Mass Index 32.9 Const General: comfortable, no acute distress, well developed, alert and awake Eyes Pupils: Equal, round and reactive pupils present EOM: EOMs intact bilaterally Chest Chest palpation & inspection: normal inspection of the chest Resp Effort & Inspection: normal respiratory effort, able to speak in complete sentences, normal respiratory pattern, no audible wheezes and no cough Cardio Jugular venous distension: no JVD Back/Spine/Pelvis Other: tenderness on palpation in paraspinal spinal region in lumbar spine. Loading test is positive. Range of motion in lumbar spine is preserved. Vikram test is positive bilaterally. Gaenslen test is positive bilaterally. Palpation of the sacral bone and especially caudal spine causes significant tenderness. Palpation of the projection of the sacroiliac joints to the skin is also positive for very significant pain increase. Stinchfield test is positive bilaterally. Neuro Cranial nerves: Yes Equal, round and reactive pupils present Psych Other: Speech and movement: Normal speech and movement present Affect: normal affect Attitude: cooperative Thought process: Normal thought process present Thought content: Normal thought content present Insight: Good insight present (Psych) Judgement: Good judgement present (Psych) Assessment & Plan Assessment & Plan (1) Sacroiliac joint dysfunction: Code(s): M53.3 - Sacrococcygeal disorders, not elsewhere classified (2) Sacroiliitis: Code(s): M46.1 - Sacroiliitis, not elsewhere classified (3) Lumbar spondylosis: Code(s): M47.816 - Spondylosis without myelopathy or radiculopathy, lumbar region (4) Coccydynia: Code(s): M53.3 - Sacrococcygeal disorders, not elsewhere classified (5) Chronic pain syndrome: Code(s): G89.4 - Chronic pain syndrome Plan Patient is a status post left SIJ fusion on 12/14/22 with 70-80 % pain relief in the projection of his left SIJ. For 4 months he had excellent results however he said that he was playing with his children at the end of March and started to feel pain in sacroiliac joint again. Very likely he fractured the bridge or possibly bridge did not form and he dislodge the fusion element out. Before that he had right-sided SI joint fusion also with good results on the right but wanted to do sacroiliac joint fusion on the left. Complains on sacrum coccygeal pain coccydynia pain in the projection of coccygeal spine as well. I will perform ganglion impar injection for him. Unfortunately we attempted to approve him for neuromodulation in the past. For his PTSD, anxiety, bipolar disorder, depression he was not approved for implantable devices. We will consider his condition to be bilateral sacral iliac joint arthritis I will investigate possibility of doing external fusion for this patient. With diagnosis of sacroiliac joint dysfunction and sacroiliitis I will refer him to Dr. Maxwell. . Coding Level of Care Code Est Pt Level 4 (83344) Diagnoses Sacroiliac joint dysfunction M53.3 Sacroiliitis M46.1 Lumbar spondylosis M47.816 Coccydynia M53.3 Chronic pain syndrome G89.4
== END 2023-05-06 11:51 | disposition home or self-care (01) ==
PROVIDERS: PCP Pediatrics; Visit Provider Anesthesiology
DX: G89.4 Chronic pain syndrome (principal); M53.3 Sacrococcygeal disorders, not elsewhere classified; M46.1 Sacroiliitis, not elsewhere classified; M47.816 Spondylosis without myelopathy or radiculopathy, lumbar region
CPT/HCPCS: 99214

== ENCOUNTER → 2023-05-06 11:22 | Outpatient (BNVA) | payer MEDICARE, MEDICAID, SELFPAY | PROVIDERS: PCP Pediatrics; Visit Provider Anesthesiology | DX: M53.3 Sacrococcygeal disorders, not elsewhere classified (principal); M46.1 Sacroiliitis, not elsewhere classified; M47.816 Spondylosis without myelopathy or radiculopathy, lumbar region; G89.4 Chronic pain syndrome | CPT/HCPCS: 99212 ==

== ENCOUNTER 2023-05-09 11:24 | Day surgery (SDC) | payer MEDICARE, MEDICAID, SELFPAY ==
--- NOTE | ~2023-05-09 | FL_ITS ---
EXAMINATION: XR FLUOROSCOPY WITH IMAGES CLINICAL INFORMATION: Ganglion injection. COMPARISON: None available. TECHNIQUE: Fluoroscopy Supervised By: Dr. Luis Miranda. Fluoroscopy Time: 0.3 minutes. Cumulative Dose: 6.87 mGy. DAP: 0.0860 Gycm2. Images: 3. FINDINGS: Images demonstrate needle placement and contrast injection anterior to the lower sacrum/coccyx. FL/FL guidance in OR IMPRESSION: Fluoroscopy guidance for pain management procedure
[2023-05-09 11:01] VITALS: BMI 34.9
[2023-05-09 11:34] VITALS: BP 148/76; PULSE 89; RESP 20; TEMP 36.1; O2SAT 98
[2023-05-09] MEDS: Lactated Ringers 1,000 ML 100 ML IVCONT (11:43)
--- NOTE | 2023-05-09 13:00 | HO.ANESPROP2 ---
Documented by User: Gisselle Valadez NP 05/08/23 14:28 HPI - Anesthesia Eval Consult details Narrative: 47yo M for Ganglion Impar Injection s/p SI joint fusion with GA-LMA 4 PMFSH Active Problems Active Problems: All Active Problems (Updated 08/03/22 @ 13:40 by Allegra Ontiveros RN) Chronic pain syndrome (Acute) Sacroiliac joint dysfunction (Acute) Sacroiliitis (Acute) Dental abscess (Acute) Coccydynia (Acute) Lumbar spondylosis (Acute) Thoracic spondylosis (Acute) Past Medical History Medical History History of alcohol use Enlarged prostate GERD (gastroesophageal reflux disease) Hx of pancreatitis Dental abscess Lyme disease Coccydynia History of bipolar disorder Lumbar spondylosis Thoracic spondylosis Family History Family history of problems with anesthesia: No Surgical History Surgical History Hx of oral surgery History of tonsillectomy and adenoidectomy History of Problems with Anesthesia: No Social History Social History Patient Tobacco Use Status: Former Tobacco user Second Hand Smoke Exposure: No Are you DNR?: No Advance Directives: No Advance Directives Information Provided: Yes Nutrition Risks: No Nutritional Risk Meds Allergies Allergy/AdvReac Type Severity Reaction Status Date / Time NSAIDS (Non-Steroidal Allergy Intermediate Abdominal Verified 05/06/23 11:36 Anti-Inflamma Pain/Bleeding Home Medications Medication Instructions Recorded Confirmed Last Taken Type fluticasone propionate 50 2 spray intranasal DAILY 05/14/20 12/11/22 05/09/23 History mcg/actuation nasal spray,suspension tamsulosin 0.4 mg capsule 0.4 mg PO BEDTIME 05/14/20 12/11/22 Unknown History omeprazole 40 mg capsule,delayed 40 mg PO DAILY 09/21/20 12/11/22 05/09/23 History release topiramate 50 mg tablet 50 mg PO BEDTIME 08/03/22 12/11/22 Unknown History acamprosate 333 mg tablet,delayed 666 mg PO TID 08/16/22 12/11/22 Unknown History release gabapentin 100 mg capsule 200 mg PO BEDTIME 08/16/22 12/11/22 Unknown History buprenorphine 4 mg-naloxone 1 mg 8 mg sublingual Q8H pain 10/17/22 12/11/22 05/09/23 History sublingual film clonazepam 0.5 mg tablet 0.5 mg PO BID PRN Anxiety 10/17/22 12/11/22 05/09/23 History lamotrigine 25 mg tablet 150 mg PO DAILY 10/17/22 12/11/22 05/09/23 History Exam Exam Date and Time: May 08, [id number] Assessment and Plan Assessment Anesthesia Assessment: Chart Reviewed Final Anesthetic Review Family History of Problems with Anesthesia: No History of Problems with Anesthesia: No Documented by User: Estefania Villatoro DO 05/09/23 13:11 HPI - Anesthesia Eval Consult details Narrative: 47yo M for Ganglion Impar Injection. On Suboxone, last dose was this morning. s/p SI joint fusion with GA-LMA 4 PMFSH Past Medical History Medical History History of alcohol use Enlarged prostate GERD (gastroesophageal reflux disease) Hx of pancreatitis Dental abscess Lyme disease Coccydynia History of bipolar disorder Lumbar spondylosis Thoracic spondylosis Family History Family history of problems with anesthesia: No Surgical History Surgical History Hx of oral surgery History of tonsillectomy and adenoidectomy History of Problems with Anesthesia: No Social History Social History Patient Tobacco Use Status: Former Tobacco user Second Hand Smoke Exposure: No Are you DNR?: No Advance Directives: No Advance Directives Information Provided: Yes Nutrition Risks: No Nutritional Risk Meds Allergies Allergy/AdvReac Type Severity Reaction Status Date / Time NSAIDS (Non-Steroidal Allergy Intermediate Abdominal Verified 05/06/23 11:36 Anti-Inflamma Pain/Bleeding Home Medications Medication Instructions Recorded Confirmed Last Taken Type fluticasone propionate 50 2 spray intranasal DAILY 1012/11/22 05/09/23 History mcg/actuation nasal spray,suspension tamsulosin 0.4 mg capsule 0.4 mg PO BEDTIME 05/14/20 12/11/22 Unknown History omeprazole 40 mg capsule,delayed 40 mg PO DAILY 09/21/20 12/11/22 05/09/23 History release topiramate 50 mg tablet 50 mg PO BEDTIME 08/03/22 12/11/22 Unknown History acamprosate 333 mg tablet,delayed 666 mg PO TID 08/16/22 12/11/22 Unknown History release gabapentin 100 mg capsule 200 mg PO BEDTIME 08/16/22 12/11/22 Unknown History buprenorphine 4 mg-naloxone 1 mg 8 mg sublingual Q8H pain 10/17/22 12/11/22 05/09/23 History sublingual film clonazepam 0.5 mg tablet 0.5 mg PO BID PRN Anxiety 10/17/22 12/11/22 05/09/23 History lamotrigine 25 mg tablet 150 mg PO DAILY 10/17/22 12/11/22 05/09/23 History Exam Exam Date and Time: May 09, 2023 1305 Height,Weight and Vital Signs: Vital Signs Temperature 97 F 05/09/23 11:34 Pulse Rate 89 05/09/23 11:34 Respiratory Rate 20 05/09/23 11:34 Blood Pressure 148/76 H 05/09/23 11:34 Pulse Oximetry 98 05/09/23 11:34 Oxygen Delivery Method Room Air 05/09/23 11:34 Temperature 97 F 05/09/23 11:34 Pulse Rate 89 05/09/23 11:34 Respiratory Rate 20 05/09/23 11:34 Blood Pressure 148/76 H 05/09/23 11:34 Pulse Oximetry 98 05/09/23 11:34 Oxygen Delivery Method Room Air 05/09/23 11:34 Height 5 ft 5 in Weight 95.254 kg Airway Mallampati Class: I TM Dist: >3cm Neck ROM: Limited Loose/Missing/Broken Teeth: Yes (Edentulous) Heart: S1S2 Lungs: CTAB Assessment and Plan Assessment Anesthesia Assessment: Anesthesia Plan Discussed and Chart Reviewed Final Anesthetic Review Family History of Problems with Anesthesia: No History of Problems with Anesthesia: No NPO: Yes ASA Class: III Final Preanesthetic Review: No Changes in Pt Med Stat, Meds/Allgs Chart Reviewed, Consent Obtained/Reviewed and Anes Risks/Benef Reviewed Patient Risk: Low Procedure Risk: Low Anesthetic Plan Anesthetic Plan: MAC: and Agree w/ Assess. and Plan Disposition: Standard PACU
--- NOTE | 2023-05-09 15:03 | MHC.SHP ---
Pre-Procedural Eval Section A Date of Service: 05/09/23 The patient is an INPATIENT: No Changes since office visit: Yes Patient answered all questions The History & Physical has been completed within 30 days and I have reviewed it.: No Section B Chief Complaint: Sacrococcygeal disorders, not elsewhere classified Details of Present Illness: as above Relevant Family History (Specify if Yes): No Relevant Social History: None Present Medications: None Medical History: No relevant PMH History of Previous Operations: No relevant previous surgery Allergies: Allergies Allergy/AdvReac Type Severity Reaction Status Date / Time NSAIDS (Non-Steroidal Allergy Intermediate Abdominal Verified 05/06/23 11:36 Anti-Inflamma Pain/Bleeding Review of Systems Sugical H&P ROS: Negative: Constitution, Cardiovascular, Respiratory, Neurological, Psychiatric, Hem-Onc, Allergic/Immunologic, Gastrointestinal, Genitourinary, Integumentary, Endocrine and Eyes/Ears/Nose/Throat and Yes, Specify: Musculoskeletal (chronic pain syndrome) Exam Surgical H&P Exam: Normal: HEENT, Normal: Heart, Normal: Lungs, Normal: Extremities, Normal: Abdomen, Normal: Skin and Normal: Neurological Plan Diagnosis/Plan: Unchanged I have reviewed the history and physical and performed a pertinent physical examination on my patient. No changes have occurred unless specified. Time Spent With Patient Time: Total time managing care of this patient today __5__ minutes.
--- NOTE | 2023-05-09 15:42 | PM.OP ---
Brief Operative Note Date of Service: 05/09/23 Pre-op diagnosis: coccydynia Post-op diagnosis: same Procedure: ganglion impar block Surgeon: Luis Miranda MD Anesthesia: MAC Was an Health Promotion Coordinator used for this Procedure?: No Estimated blood loss (mL): 1 Condition: stable Disposition: PACU
--- NOTE | 2023-05-09 15:46 | W.PM.OPN ---
Operative Note Operative Note Date of Service: 05/09/23 Narrative: ganglion impar injection.? After obtaining informed consent the patient was taken to the operating room where she was position on operating table prone.? ASA monitors applied and patient was moderately sedated ?Time-out was performed delineating correct site, side, the nature of the procedure, patient's allergy need for antibiotic therapy.? All operating room staff was participating in OR time-out procedure.? His lower back, bilateral buttocks and intergluteal cleft were thoroughly prepped with ChloraPrep and draped with sterile fenestrated clear drape.? Fluoroscopy C-arm was brought over the operating field and picture of midline sacral bone superimposing on symphysis pubis was obtained on the C-arm screen.? Image of caudal spine and the disc image between second and third caudal vertebrae was delineated on the screen.The skin wheal was raised using 1% lidocaine2 mls. The 22 g 3-1/2 inch needle was inserted through the skin wheal and advanced toward the disc under A/p and lateral intermittent views. When the needle entered the disc the projection disc of the C-arm was changed into lateral view and needle was slowly advanced into retropelvic space carefully monitoring the position of the tip of the needle. When tip of the needle cleared 3 mm outside of the anterior surface of the caudal spine the injection of the contrast was performed delineates retropelvic spread of the contrast and no intravascular, no intestinal and no vesical spread of the contrast. After that injection of the treatment solution containing ropivacaine 0.5% 4 mls mixed with kenalog 40 mg was performed into the needle. the needle was withdrawn and sterile dressing was applied. The patient tolerated procedure well and recovered uneventfully.?
[2023-05-09 15:49] VITALS: BP 131/85; PULSE 85; RESP 12; TEMP 36.8; O2SAT 95
[2023-05-09 16:04] VITALS: BP 144/82; PULSE 82; RESP 16; TEMP 36.6; O2SAT 98
== END 2023-05-09 16:21 | disposition home or self-care (01) ==
PROVIDERS: PCP Pediatrics; Visit Provider Anesthesiology
PROC: (CPT 64999; principal; 2023-05-09 14:00)
DX: M53.3 Sacrococcygeal disorders, not elsewhere classified (principal); M54.50 Low back pain, unspecified; K21.9 Gastro-esophageal reflux disease without esophagitis; F31.9 Bipolar disorder, unspecified; F43.10 Post-traumatic stress disorder, unspecified; F10.91 Alcohol use, unspecified, in remission; Z88.8 Allergy status to other drugs, medicaments and biological substances
CPT/HCPCS: 64999; J2795; J3010; J3301; Q9967

== ENCOUNTER → 2023-05-09 11:24 | Outpatient (BNV) | payer MEDICARE, MEDICAID, SELFPAY | PROVIDERS: PCP Pediatrics; Visit Provider Anesthesiology | DX: M53.3 Sacrococcygeal disorders, not elsewhere classified (principal) | CPT/HCPCS: 64999 ==

== ENCOUNTER 2023-06-12 12:59 | Outpatient (AMB) | payer MEDICARE, MEDICAID, SELFPAY ==
--- NOTE | 2023-06-12 13:05 | A.OFFVIS_ITS ---
Intake Vital Signs 06/12/23 13:06 Height 5 ft 5 in Weight 207 lb BMI 34.4 BP 136/74 Blood Pressure Location Rt brachial Position Sitting Respiration 12 Pulse 94 Pulse Source Pulse Oximeter Pulse Oximetry (%) 97 Oxygen Delivery Method Room Air Intake Visit Reasons: s/p Ganglion Impar Block 05/09/23 /Lvm Allergies NSAIDS (Non-Steroidal Anti-Inflamma Allergy (Intermediate, Verified 06/12/23 13:07) Abdominal Pain/Bleeding Medication List - Last Reconciled 06/12/23 by Renuka Bates LPN acamprosate 666 mg PO TID buprenorphine-naloxone 4-1 mg 8 mg sublingual Q8H clonazepam 0.5 mg PO BID PRN cyclobenzaprine 10 mg PO Q8H 90 days fluticasone propionate 50 mcg/actuation 2 sprays intranasal DAILY gabapentin 200 mg PO BEDTIME lamotrigine 150 mg PO DAILY omeprazole 40 mg PO DAILY tamsulosin 0.4 mg PO BEDTIME HPI HPI Comments History of Present Illness Details Patient is a 47-year-old male presents today 6 weeks status post left SIJ fusion on 12/14/22 . He reported today that until the end of March he felt himself very good with his pain. He reported excellent mobility and great activities of daily living. He even decided not attend the ganglion impar injection because he felt himself so good. However in March he had very active day with his children and he started to feel his sacroiliac joint pain again. I think he might have dislodged the fusion element. We discussed the options of his treatment today. I offered him a discussion about possible sacroiliac joint external fusion versus sacroiliac joint innervation stimulation. He reminded me that he did not past psychological evaluation will when we considered modes of treatment of his SI joint disorder because of his anxiety, depression, bipolar disorder and PTSD. Therefore no neuromodulation is will be available for this patient. After performing of ganglion impar block he reports improvement of the pain in the coccygeal area however he reports that pain above this area is still hurting. He continues to endorse pain in the bilateral lower extremities and feeling of numbness and tingling sensation in bilateral feet. He will be ev aluated by a neurosurgeon Dr. Maxwell on the 06/25/2023. Depending on the results of this appointment he will schedule the follow-up with me in couple of weeks. Prior:? Status? post right sacroiliac joint fusion on 08/10/2022.? He is 14 weeks after the procedure.? He reports decreasw of the pain on the right side however he feels on the background of absence of the pain in the right increased pain on the left.? We discussed today possibility of treating his left sacroiliac joint with fusion.? He also has lumbar spine axial pain which is related to facet joint arthropathy bilaterally.? In the past he received bilateral medial branch block L2-L3 L4 dorsal ramus L5 with very good results of pain relief however the radiofrequency ablation following this procedure did not alleviate his pain significantly enough.? I would need to consider in the future performance of a sprint PNS after repeat of the diagnostic medial branch block injection.? We had very long and detailed conversation today and there are multiple social issues in this patient's live which are obstacles to performance of definitive procedures.? We decided to start with left sacroiliac joint stabilization with fusion pain tech.? I examined x-ray on the patient's back and on x-ray 14 weeks after the procedure the fusion element is very well position in the anterior portion of the right sacroiliac joint. He reported 100% pain improvement for 5 hours after the sacroiliac joint diagnostic injection.? He received diagnostic sacroiliac joint injection with ropivacaine alone no more full than 4 cc into each joint.? There were no steroids in the injectate.? He reported increased mobility, he reports better social interactions improved activities of daily living.? This patient is suffering from some psychological conditions which could be an obstacle form receiving the stimulation.? He was sent for the psychological evaluation however he was denied possibility on implantable devices for the treatment of his pain.? Nevertheless the sacroiliac joint fusion does not require psychological evaluation.? He is reporting coccydynia as well as lower back pain.? He had in the past? ganglion impar injection.? This procedure used to help him on the 1st time, however 2nd injection resulted only in pain aggravation.? Previously done injections on this patient's including medial branch blocks and transforaminal epidural steroid injections resulted in no pain improvement. ?RFA resulted in no pain improvement. He is very tall individual and suffers from multiple sites arthritis including ankle arthritis, knee arthritis, lower back facet joint arthritis and spondylosis and sacroiliac joint arthritis.? He also suffers from bilateral hip trochanteric bursitis which previously was treated with steroid injections.? However now with fusion of the sacroiliac joint is steroids will be contraindicated for the treatment of this condition. He is currently taking Suboxone for his pain control prescribed elsewhere. he reports that Suboxone give him not very adequate pain relief.? He had several sessions of physical therapy in the past which were aggravating his pain ? [facility] Medical History History of alcohol use Enlarged prostate GERD (gastroesophageal reflux disease) Hx of pancreatitis Dental abscess Lyme disease Coccydynia History of bipolar disorder Lumbar spondylosis Thoracic spondylosis Surgical History Hx of oral surgery History of tonsillectomy and adenoidectomy Social History Patient Tobacco Use Status: Former Tobacco user Second Hand Smoke Exposure: No Review of Systems Const All systems reviewed & are unremarkable except as noted in HPI and below Physical Exam Vital Signs: Last Vital Signs Pulse 94 06/12/23 13:06 Resp 12 06/12/23 13:06 BP 136/74 06/12/23 13:06 Pulse Ox 97 06/12/23 13:06 Oxygen Delivery Method Room Air 06/12/23 13:06 BMI result Body Mass Index 34.4 Const General: comfortable, no acute distress, well developed, alert and awake Eyes Pupils: Equal, round and reactive pupils present EOM: EOMs intact bilaterally Chest Chest palpation & inspection: normal inspection of the chest Resp Effort & Inspection: normal respiratory effort, able to speak in complete sentences, normal respiratory pattern, no audible wheezes and no cough Cardio Jugular venous distension: no JVD Back/Spine/Pelvis Other: tenderness on palpation in paraspinal spinal region in lumbar spine. Loading test is positive. Range of motion in lumbar spine is preserved. Vikram test is positive bilaterally. Gaenslen test is positive bilaterally. Palpation of the sacral bone and especially caudal spine causes significant tenderness. Palpation of the projection of the sacroiliac joints to the skin is also positive for very significant pain increase. Stinchfield test is positive bilaterally. Neuro Cranial nerves: Yes Equal, round and reactive pupils present Psych Other: Speech and movement: Normal speech and movement present Affect: normal affect Attitude: cooperative Thought process: Normal thought process present Thought content: Normal thought content present Insight: Good insight present (Psych) Judgement: Good judgement present (Psych) Assessment & Plan Assessment & Plan (1) Sacroiliac joint dysfunction: Code(s): M53.3 - Sacrococcygeal disorders, not elsewhere classified (2) Sacroiliitis: Code(s): M46.1 - Sacroiliitis, not elsewhere classified (3) Lumbar spondylosis: Code(s): M47.816 - Spondylosis without myelopathy or radiculopathy, lumbar region (4) Coccydynia: Code(s): M53.3 - Sacrococcygeal disorders, not elsewhere classified (5) Chronic pain syndrome: Code(s): G89.4 - Chronic pain syndrome Plan Patient is a status post left SIJ fusion on 12/14/22 with 70-80 % pain relief in the projection of his left SIJ. For 4 months he had excellent results however he said that he was playing with his children at the end of March and started to feel pain in sacroiliac joint again. Very likely he fractured the bridge or possibly bridge did not form and he dislodge the fusion element out. Before that he had right-sided SI joint fusion also with good results on the right but wanted to do sacroiliac joint fusion on the left. Complains on sacrum coccygeal pain coccydynia pain in the projection of coccygeal spine as well. ganglion impar block resulted in significant pain improvement in coccygeal area. However the pain is higher than coccydynia and he continues to endorse that pain. Unfortunately we attempted to approve him for neuromodulation in the past. For his PTSD, anxiety, bipolar disorder, depression he was not approved for implantable devices. We will consider his condition to be bilateral sacral iliac joint arthritis I will investigate possibility of doing external fusion for this patient. With diagnosis of sacroiliac joint dysfunction and sacroiliitis I will refer him to Dr. Maxwell. I would also appreciate if he will receive neurosurgical evaluation of his CT of the lumbar spine which he has available in our records as well as MRI of the lumbar spine he has at his household. He promised to bring the MRI disc to the appointment with Dr. Maxwell. . Coding Level of Care Code Est Pt Level 3 (16931) Diagnoses Sacroiliac joint dysfunction M53.3 Sacroiliitis M46.1 Lumbar spondylosis M47.816 Coccydynia M53.3 Chronic pain syndrome G89.4
[2023-06-12 13:06] VITALS: BP 136/74; PULSE 94; RESP 12; O2SAT 97; BMI 34.4
== END 2023-06-12 13:26 | disposition home or self-care (01) ==
PROVIDERS: PCP Pediatrics; Visit Provider Anesthesiology
DX: M53.3 Sacrococcygeal disorders, not elsewhere classified (principal); M46.1 Sacroiliitis, not elsewhere classified; M47.816 Spondylosis without myelopathy or radiculopathy, lumbar region; G89.4 Chronic pain syndrome
CPT/HCPCS: 99213

== ENCOUNTER → 2023-06-12 12:59 | Outpatient (BNVA) | payer MEDICARE, MEDICAID, SELFPAY | PROVIDERS: PCP Pediatrics; Visit Provider Anesthesiology | DX: M53.3 Sacrococcygeal disorders, not elsewhere classified (principal); M46.1 Sacroiliitis, not elsewhere classified; M47.816 Spondylosis without myelopathy or radiculopathy, lumbar region; G89.4 Chronic pain syndrome | CPT/HCPCS: 99212 ==

== ENCOUNTER 2023-07-25 10:56 | Outpatient (AMB) | payer MEDICARE, MEDICAID, SELFPAY ==
--- NOTE | 2023-07-25 11:03 | HO.SPINEOV ---
Intake Intake Visit Reasons: low back pain Intake Note: Mr. Salvador is here today c/o low back pain. MRI done @ [place]/brought disc, CT Scan done @ [facility] [place] Floor Installer Required: No Allergies NSAIDS (Non-Steroidal Anti-Inflamma Allergy (Intermediate, Verified 06/12/23 13:07) Abdominal Pain/Bleeding Assessment & Plan Assessment & Plan (1) Chronic pain syndrome: Code(s): G89.4 - Chronic pain syndrome Plan Dear Dr. Miranda, Thank you for referring Wade to our office today. He is a pleasant 47-year-old male who comes in today with a chief complaint of chronic longstanding low back pain for the last 6 years. He reports a wide array of associated symptoms, including hip pain, buttocks pain, muscle weakness in his lower extremities with prolonged sitting, and numbness/tingling in his bilateral feet with prolonged sitting. He reports that sitting for extended periods of time exacerbates his pain, and that standing for prolonged periods of time also exacerbates his pain. He reports having many injections in the past most of which have not been helpful for him, however he most recently had coccygeal injections in April which he states provided him with significant relief for the first few weeks after the injections. He has tried utilizing many eitx-erb-jcjejby remedies including [id number] pain patches without significant relief. He has also been to physical therapy multiple times which he feels have not been helpful for him. Of note he was most recently referred to a neurologist by his primary care physician for daily moderate/severe headaches per his report. He also reports a pertinent past medical history of fracturing his coccyx on 2 separate occasions. PMH: Chronic low back pain, history of substance use disorders, anxiety, seasonal allergies, GERD, BPH. Bilateral SI joint fusion. Social hx: Patient smokes 1/2 pack cigarettes per day. Endorses no current substance use. Medications: Acamprosate, Suboxone, clonazepam, cyclobenzaprine, fluticasone, gabapentin, lamotrigine, omeprazole, tamsulosin. Allergies: NSAIDs. Physical exam: The patient has 5/5 strength in his upper and lower extremities. He reports no sensational deficits on exam today. His reflexes are 2+ and intact in his upper and lower extremities. He ambulates well and rises from a seated position without difficulty. (-) clonus, (-) White's, (-) straight leg raise bilaterally. Imaging review: MRI of the lumbar spine completed in 2021 at [facility] shows mild spondylosis of the lumbar spine. His vertebral body show no abnormalities, he has good disc space height. No central canal stenosis or exiting nerve root impingement noted. Impression: The patient is a 47-year-old male who comes in today with multiple chief complaints, primarily he states that he has had low back pain for the past 6 years. He has tried a long list of management options for his low back pain all of which have been unsuccessful per his report aside from his most recent coccygeal injections. Of note he has recently been complaining of persistent daily moderate/severe headaches alongside is nonspecific neurological complaints which include intermittent numbness/tingling in his bilateral feet. His MRI and physical exam are generally unremarkable from a neurosurgical standpoint. He was advised to follow-up with his new neurology appointment that he has in August which was scheduled by his primary care provider. I believe that he may have some kind of non-surgical neurological issues causing his symptoms. I do not believe there to be any obvious neurosurgical intervention that we can offer him that would provide him with relief. He was also strongly encouraged to continue follow-up with his pain management provider. Thank you for allowing us to care for your patient. The total time spent with this visit with this patient was 45 minutes reviewing history, physical exam, MRI imaging review, and implementation of treatment plan or further diagnostic testing Emory Maxwell MD,PhD [facility] Coding Level of Care Code New Pt Level 4 (94428) Diagnoses Chronic pain syndrome G89.4
== END 2023-07-25 11:47 | disposition home or self-care (01) ==
PROVIDERS: PCP Pediatrics; Referring Provider Anesthesiology; Visit Provider Physician Assistant
DX: G89.4 Chronic pain syndrome (principal)
CPT/HCPCS: 99204

== ENCOUNTER → 2023-07-25 10:56 | Outpatient (BNVA) | payer MEDICARE, MEDICAID, SELFPAY | PROVIDERS: PCP Pediatrics; Visit Provider Physician Assistant | DX: G89.4 Chronic pain syndrome (principal) | CPT/HCPCS: 99202 ==

== ENCOUNTER 2023-10-16 14:53 | Outpatient (AMB) | payer MEDICARE, MEDICAID, SELFPAY ==
--- NOTE | 2023-10-16 14:55 | A.OFFVIS_ITS ---
Intake Vital Signs 10/16/23 15:01 Height 5 ft 5 in Weight 205 lb BMI 34.1 BP 132/76 Blood Pressure Location Lt brachial Position Sitting Respiration 16 Pulse 90 Pulse Source Pulse Oximeter Pulse Oximetry (%) 98 Oxygen Delivery Method Room Air Intake Visit Reasons: Pain coccyx Intake Note: Patient comes in for coccyx pain. Reports pain 5/10. Allergies NSAIDS (Non-Steroidal Anti-Inflamma Allergy (Intermediate, Verified 10/16/23 15:03) Abdominal Pain/Bleeding HPI HPI Comments History of Present Illness Details Wade is back in my office after neurosurgical consult. I sent him there after he failed on sacroiliac joint stabilization with fusion to alleviate his pain. His fusion appears to be only partial and eyes send him to Neurosurgery to consider external SI fusion with screws. However the patient was not found to be eligible candidate for the procedure by neurosurgery and he was sent back to pain management. In the past I performed ganglion impar injection on him which helped his pain in the coccyx. I am planning to perform ganglion impar injection on him again this time in combination with caudal epidural steroid injection without catheter in the attempt to alleviate his pain in the projection of the sacral bone. He was also recommended to stop using heating pads before the injections. He was also recommended to buy cofa-dfr-nehxkkd lidocaine 4% and applied to the area of the planned injection. Prior:? Status? post right sacroiliac joint fusion on 08/10/2022.? He is 14 weeks after the procedure.? He reports decreasw of the pain on the right side however he feels on the background of absence of the pain in the right increased pain on the left.? We discussed today possibility of treating his left sacroiliac joint with fusion.? He also has lumbar spine axial pain which is related to facet joint arthropathy bilaterally.? In the past he received bilateral medial branch block L2-L3 L4 dorsal ramus L5 with very good results of pain relief however the radiofrequency ablation following this procedure did not alleviate his pain significantly enough.? I would need to consider in the future performance of a sprint PNS after repeat of the diagnostic medial branch block injection.? We had very long and detailed conversation today and there are multiple social issues in this patient's live which are obstacles to performance of definitive procedures.? We decided to start with left sacroiliac joint stabilization with fusion pain tech.? I examined x-ray on the patient's back and on x-ray 14 weeks after the procedure the fusion element is very well position in the anterior portion of the right sacroiliac joint. He reported 100% pain improvement for 5 hours after the sacroiliac joint diagnostic injection.? He received diagnostic sacroiliac joint injection with ropivacaine alone no more full than 4 cc into each joint.? There were no steroids in the injectate.? He reported increased mobility, he reports better social interactions improved activities of daily living.? This patient is suffering from some psychological conditions which could be an obstacle form receiving the stimulation.? He was sent for the psychological evaluation however he was denied possibility on implantable devices for the treatment of his pain.? Nevertheless the sacroiliac joint fusion does not require psychological evaluation.? He is reporting coccydynia as well as lower back pain.? He had in the past? ganglion impar injection.? This procedure used to help him on the 1st time, however 2nd injection resulted only in pain aggravation.? Previously done injections on this patient's including medial branch blocks and transforaminal epidural steroid injections resulted in no pain improvement. ?RFA resulted in no pain improvement. He is very tall individual and suffers from multiple sites arthritis including ankle arthritis, knee arthritis, lower back facet joint arthritis and spondylosis and sacroiliac joint arthritis.? He also suffers from bilateral hip trochanteric bursitis which previously was treated with steroid injections.? However now with fusion of the sacroiliac joint is steroids will be contraindicated for the treatment of this condition. He is currently taking Suboxone for his pain control prescribed elsewhere. he reports that Suboxone give him not very adequate pain relief.? He had several sessions of physical therapy in the past which were aggravating his pain ? [facility] Medical History History of alcohol use Enlarged prostate GERD (gastroesophageal reflux disease) Hx of pancreatitis Dental abscess Lyme disease Coccydynia History of bipolar disorder Lumbar spondylosis Thoracic spondylosis Surgical History Hx of oral surgery History of tonsillectomy and adenoidectomy Social History Patient Tobacco Use Status: Former Tobacco user Second Hand Smoke Exposure: No Review of Systems Const All systems reviewed & are unremarkable except as noted in HPI and below Physical Exam Vital Signs: Last Vital Signs Pulse 90 10/16/23 15:01 Resp 16 10/16/23 15:01 BP 132/76 10/16/23 15:01 Pulse Ox 98 10/16/23 15:01 Oxygen Delivery Method Room Air 10/16/23 15:01 BMI result Body Mass Index 34.1 Const General: comfortable, no acute distress, well developed, alert and awake Eyes Pupils: Equal, round and reactive pupils present EOM: EOMs intact bilaterally Chest Chest palpation & inspection: normal inspection of the chest Resp Effort & Inspection: normal respiratory effort, able to speak in complete sentences, normal respiratory pattern, no audible wheezes and no cough Cardio Jugular venous distension: no JVD Back/Spine/Pelvis Other: tenderness on palpation in paraspinal spinal region in lumbar spine. Loading test is positive. Range of motion in lumbar spine is preserved. Vikram test is positive bilaterally. Gaenslen test is positive bilaterally. Palpation of the sacral bone and especially caudal spine causes significant tenderness. Palpation of the projection of the sacroiliac joints to the skin is also positive for very significant pain increase. Stinchfield test is positive bilaterally. Neuro Cranial nerves: Yes Equal, round and reactive pupils present Psych Other: Speech and movement: Normal speech and movement present Affect: normal affect Attitude: cooperative Thought process: Normal thought process present Thought content: Normal thought content present Insight: Good insight present (Psych) Judgement: Good judgement present (Psych) Assessment & Plan Assessment & Plan (1) Sacroiliac joint dysfunction: Code(s): M53.3 - Sacrococcygeal disorders, not elsewhere classified (2) Sacroiliitis: Code(s): M46.1 - Sacroiliitis, not elsewhere classified (3) Lumbar spondylosis: Code(s): M47.816 - Spondylosis without myelopathy or radiculopathy, lumbar region (4) Coccydynia: Code(s): M53.3 - Sacrococcygeal disorders, not elsewhere classified (5) Chronic pain syndrome: Code(s): G89.4 - Chronic pain syndrome Plan Patient is a status post left SIJ fusion on 12/14/22 with 70-80 % pain relief in the projection of his left SIJ. For 4 months he had excellent results however he said that he was playing with his children at the end of March and started to feel pain in sacroiliac joint again. Very likely he fractured the bridge or possibly bridge did not form and he dislodge the fusion element out. Before that he had right-sided SI joint fusion also with good results on the right but wanted to do sacroiliac joint fusion on the left. Complains on sacrum coccygeal pain coccydynia pain in the projection of coccygeal spine as well. ganglion impar block resulted in significant pain improvement in coccygeal area. However the pain is higher than coccydynia and he continues to endorse that pain. Neurosurgery decided not to offer him any procedures to alleviate his pain and send him back to pain management. I offered him today to repeat ganglion impar injection and combine it with caudal epidural steroid injection without catheter. I will see him after the injection. Neuromodulation with position of the stimulation in the sacral canal could be considered to help this patient's pain. . Coding Level of Care Code Est Pt Level 3 (93273) Diagnoses Sacroiliac joint dysfunction M53.3 Sacroiliitis M46.1 Lumbar spondylosis M47.816 Coccydynia M53.3 Chronic pain syndrome G89.4
[2023-10-16 15:01] VITALS: BP 132/76; PULSE 90; RESP 16; O2SAT 98; BMI 34.1
== END 2023-10-16 15:34 | disposition home or self-care (01) ==
PROVIDERS: PCP Pediatrics; Visit Provider Anesthesiology
DX: M53.3 Sacrococcygeal disorders, not elsewhere classified (principal); M46.1 Sacroiliitis, not elsewhere classified; M47.816 Spondylosis without myelopathy or radiculopathy, lumbar region; G89.4 Chronic pain syndrome
CPT/HCPCS: 99213

== ENCOUNTER → 2023-10-16 14:53 | Outpatient (BNVA) | payer MEDICARE, MEDICAID, SELFPAY | PROVIDERS: PCP Pediatrics; Visit Provider Anesthesiology | DX: M53.3 Sacrococcygeal disorders, not elsewhere classified (principal); M46.1 Sacroiliitis, not elsewhere classified; M47.816 Spondylosis without myelopathy or radiculopathy, lumbar region; G89.4 Chronic pain syndrome | CPT/HCPCS: 99212 ==

== ENCOUNTER 2023-11-01 10:36 | Day surgery (SDC) | payer MEDICARE, MEDICAID, SELFPAY ==
--- NOTE | 2023-10-30 14:10 | P.CONAN_ITS ---
Documented by User: Gisselle Valadez NP 10/30/23 14:16 HPI - Anesthesia Eval Consult details Narrative: 48yo M for Ganglion Impar Block, Epidural Steroid Injection WITHOUT catheter s/p same 04/2023 with MAC Suboxone daily Plavix for ??? . Requested last neuro note as patient states this is who manages it. PMFSH Active Problems Active Problems: All Active Problems (Updated 08/03/22 @ 13:40 by Allegra Ontiveros RN) Chronic pain syndrome (Acute) Sacroiliac joint dysfunction (Acute) Sacroiliitis (Acute) Dental abscess (Acute) Coccydynia (Acute) Lumbar spondylosis (Acute) Thoracic spondylosis (Acute) Past Medical History Medical History History of alcohol use Enlarged prostate GERD (gastroesophageal reflux disease) Hx of pancreatitis Dental abscess Lyme disease Coccydynia History of bipolar disorder Lumbar spondylosis Thoracic spondylosis Family History Family history of problems with anesthesia: No Surgical History Surgical History Hx of oral surgery History of tonsillectomy and adenoidectomy History of Problems with Anesthesia: No Social History Social History Patient Tobacco Use Status: Current everyday Tobacco user Tobacco use type: Cigarette and Smokeless Tobacco Second Hand Smoke Exposure: No Use of substances other than those prescribed or required for medical reasons: No Are you DNR?: No Advance Directives: No Advance Directives Information Provided: Yes Advance Directives on File: No Meds Allergies Allergy/AdvReac Type Severity Reaction Status Date / Time NSAIDS (Non-Steroidal Allergy Intermediate Abdominal Verified 10/16/23 15:03 Anti-Inflamma Pain/Bleeding Home Medications Medication Instructions Recorded Confirmed Last Taken Type fluticasone propionate 50 2 spray intranasal DAILY 05/14/20 11/01/23 05/09/23 History mcg/actuation nasal spray,suspension tamsulosin 0.4 mg capsule 0.4 mg PO BEDTIME 05/14/20 11/01/23 Unknown History omeprazole 40 mg capsule,delayed 40 mg PO DAILY 09/21/20 11/01/23 11/01/23 History release acamprosate 333 mg tablet,delayed 666 mg PO TID 08/16/22 11/01/23 Unknown History release gabapentin 100 mg capsule 200 mg PO BEDTIME 08/16/22 11/01/23 Unknown History buprenorphine 4 mg-naloxone 1 mg 8 mg sublingual Q8H pain 10/17/22 11/01/23 11/01/23 History sublingual film clonazepam 0.5 mg tablet 0.5 mg PO BID PRN Anxiety 10/17/22 11/01/23 11/01/23 History lamotrigine 25 mg tablet 150 mg PO DAILY 10/17/22 11/01/23 05/09/23 History aspirin 81 mg tablet,delayed 81 mg PO DAILY 10/16/23 11/01/23 Unknown History release clopidogrel 75 mg tablet (Plavix) 75 mg PO DAILY 10/16/23 11/01/23 Unknown History galcanezumab-gnlm 120 mg/mL mg subcut 10/16/23 Unknown History subcutaneous pen injector (Emgality Pen) Assessment and Plan Assessment Anesthesia Assessment: Chart Reviewed Final Anesthetic Review Family History of Problems with Anesthesia: No History of Problems with Anesthesia: No Documented by User: Kenan Back MD 11/01/23 11:40 PMFSH Past Medical History Medical History History of alcohol use Enlarged prostate GERD (gastroesophageal reflux disease) Hx of pancreatitis Dental abscess Lyme disease Coccydynia History of bipolar disorder Lumbar spondylosis Thoracic spondylosis Surgical History Surgical History Hx of oral surgery History of tonsillectomy and adenoidectomy Social History Social History Patient Tobacco Use Status: Current everyday Tobacco user Tobacco use type: Cigarette and Smokeless Tobacco Second Hand Smoke Exposure: No Use of substances other than those prescribed or required for medical reasons: No Are you DNR?: No Advance Directives: No Advance Directives Information Provided: Yes Advance Directives on File: No Meds Allergies Allergy/AdvReac Type Severity Reaction Status Date / Time NSAIDS (Non-Steroidal Allergy Intermediate Abdominal Verified 10/16/23 15:03 Anti-Inflamma Pain/Bleeding Home Medications Medication Instructions Recorded Confirmed Last Taken Type fluticasone propionate 50 2 spray intranasal DAILY 05/14/20 11/01/23 05/09/23 History mcg/actuation nasal spray,suspension tamsulosin 0.4 mg capsule 0.4 mg PO BEDTIME 05/14/20 11/01/23 Unknown History omeprazole 40 mg capsule,delayed 40 mg PO DAILY 09/21/20 11/01/23 11/01/23 History release acamprosate 333 mg tablet,delayed 666 mg PO TID 08/16/22 11/01/23 Unknown H istory release gabapentin 100 mg capsule 200 mg PO BEDTIME 08/16/22 11/01/23 Unknown History buprenorphine 4 mg-naloxone 1 mg 8 mg sublingual Q8H pain 10/17/22 11/01/23 11/01/23 History sublingual film clonazepam 0.5 mg tablet 0.5 mg PO BID PRN Anxiety 10/17/22 11/01/23 11/01/23 History lamotrigine 25 mg tablet 150 mg PO DAILY 10/17/22 11/01/23 05/09/23 History aspirin 81 mg tablet,delayed 81 mg PO DAILY 10/16/23 11/01/23 Unknown History release clopidogrel 75 mg tablet (Plavix) 75 mg PO DAILY 10/16/23 11/01/23 Unknown History galcanezumab-gnlm 120 mg/mL mg subcut 10/16/23 Unknown History subcutaneous pen injector (Emgality Pen) Exam Airway Mallampati Class: II TM Dist: <=3cm Neck ROM: Full Loose/Missing/Broken Teeth: No Heart: rrr Lungs: cta b/l Assessment and Plan Final Anesthetic Review NPO: Yes ASA Class: II Final Preanesthetic Review: No Changes in Pt Med Stat, Meds/Allgs Chart Reviewed, Consent Obtained/Reviewed and Anes Risks/Benef Reviewed Patient Risk: Intermediate Procedure Risk: Low Anesthetic Plan Anesthetic Plan: MAC: Disposition: Standard PACU
--- NOTE | ~2023-11-01 | FL_ITS ---
EXAMINATION: XR FLUOROSCOPY WITH IMAGES CLINICAL INFORMATION: Ganglion impar black, epidural steroid injection COMPARISON: None available. TECHNIQUE: Fluoroscopy Supervised By: Dr. Luis Miranda. Fluoroscopy Time: 29 seconds. Cumulative Dose: 26.522 mGy. DAP: 7.0006 Gycm2. Images: 2. FINDINGS: 2 images demonstrate a needle in the sacrococcygeal space with contrast extravasation into the precoccygeal and presacral space. Please see Dr. Luis Miranda procedure note for full details. FL/FL guidance in OR IMPRESSION: Flyoroscopy provided to the referring provider for pain control.
[2023-11-01 10:47] VITALS: BMI 34.6
[2023-11-01 11:05] VITALS: BP 121/86; PULSE 101; RESP 16; TEMP 36.9; O2SAT 91
[2023-11-01] MEDS: Lactated Ringers 1,000 ML 100 ML IVCONT (11:11)
--- NOTE | 2023-11-01 11:45 | MHC.SHP ---
Pre-Procedural Eval Section A - 24 Hr Update-Section A only Date of Service: 11/01/23 The patient is an INPATIENT: No Changes since office visit: Yes Patient answered all questions The patient has been examined within 24 hours of the surgical procedure. The History & Physical has been completed within 30 days and I have reviewed it.: No Section B - Complete if H&P > 30 days Chief Complaint: Sacrococcygeal disorders, Details of Present Illness: chronic pain syndrome, sacrococcygeal disorder Relevant Family History (Specify if Yes): No Relevant Social History: None Present Medications: None Medical History: No relevant PMH History of Previous Operations: Relevant previous surgery/procedure and date(s) Allergies: Allergies Allergy/AdvReac Type Severity Reaction Status Date / Time NSAIDS (Non-Steroidal Allergy Intermediate Abdominal Verified 10/16/23 15:03 Anti-Inflamma Pain/Bleeding Review of Systems Sugical H&P ROS: Negative: Constitution, Cardiovascular, Respiratory, Neurological, Psychiatric, Hem-Onc, Allergic/Immunologic, Gastrointestinal, Genitourinary, Integumentary, Endocrine and Eyes/Ears/Nose/Throat and Yes, Specify: Musculoskeletal (as above) Exam Surgical H&P Exam: Normal: HEENT, Normal: Heart, Normal: Lungs, Normal: Extremities, Normal: Abdomen, Normal: Skin and Normal: Neurological Plan Diagnosis/Plan: Unchanged I have reviewed the history and physical and performed a pertinent physical examination on my patient. No changes have occurred unless specified. Time Spent With Patient Time: Total time managing care of this patient today ____ minutes.
[2023-11-01 12:45] VITALS: BP 126/86; PULSE 91; RESP 17; TEMP 36.3; O2SAT 95
--- NOTE | 2023-11-01 12:48 | P.BOP_ITS ---
Brief Operative Note Date of Service: 11/01/23 Pre-op diagnosis: Sacrococcygeal disorder, chronic pain syndrome Post-op diagnosis: same Procedure: caudal IRENA without catheter, ganglion impar injection. Surgeon: Luis Miranda MD Anesthesia: MAC Was an Senior Sql Server Developer used for this Procedure?: No Estimated blood loss (mL): 1 Condition: stable Disposition: PACU
--- NOTE | 2023-11-01 12:51 | P.OP_ITS ---
Operative Note Operative Note Date of Service: 11/01/23 Narrative: Caudal epidural steroid injection without catheter, ganglion impar injection.. Informed consent was explained to the patient, risks and benefits were explained, questions were answered. The patient came to the operating room he was positioned prone on the operating table [place] [employer] monitors were applied and patient was deeply sedated. Time-out was performed delineating name and date of of the patient, nature of the procedure, risk of fire and need for DVT prophylaxis. The lower back of the patient, buttocks of the patient and intergluteal crease were prepped with ChloraPrep and draped with sterile utility towels. After that serum was brought over the operating field and sq picture of the sacral bone was demonstrated on the screen. 2 cm below the sacral hiatus projection to the skin the skin was infiltrated with lidocaine 2% 2-3 cc. After that 18 gauge Touhy needle was inserted through the skin and advanced to were the caudal canal on the anterior posterior and lateral views. When tip of the needle entered the caudal canal injection of the contrast performed delineating epidural space. After that 12 cc of preservative-free normal saline was injected into the needle following injection of the 5 cc of 1% lidocaine mixed with Kenalog 40 mg. After that attention was concentrated on coccygeal spine, the disc between 1st and 2nd coccygeal vertebras was chosen as the target of the needle insertion. The 22 gauge 3-1/2 inch needle needle was advanced through the skin to were the disc between 2nd and 1st coccygeal vertebras, the needle after that advanced through the disc under lateral view. When tip of the needle clear out 1 mm from the silhouette of the anterior disc injection of the contrast was performed delineating retro pelvic space. After that injection of the local anesthesia lidocaine 1% mixed with Kenalog 40 mg total of 5 mL was performed. After that the needle was removed and sterile 4 x 4 with bacitracin was applied to the lev el of the skin and taped to the skin with sterile Medipore tape. The patient tolerated procedure well. He was taken outside of the operating room to recovery room where he recovered uneventfully.
[2023-11-01 13:00] VITALS: BP 115/63; PULSE 87; RESP 16; TEMP 36.2; O2SAT 97
[2023-11-01 13:15] VITALS: BP 114/60; PULSE 86; RESP 16; TEMP 36.2; O2SAT 97
== END 2023-11-01 13:35 | disposition home or self-care (01) ==
PROVIDERS: PCP Pediatrics; Visit Provider Anesthesiology
PROC: (CPT 62323; principal; 2023-11-01 12:10)
PROC: 3E0R33Z Introduction of Anti-inflammatory into Spinal Canal, Percutaneous Approach (ICD-10-PCS; CPT 62323; 2023-11-01 12:10)
DX: M53.3 Sacrococcygeal disorders, not elsewhere classified (principal); G89.4 Chronic pain syndrome; M46.1 Sacroiliitis, not elsewhere classified; M47.816 Spondylosis without myelopathy or radiculopathy, lumbar region; M54.50 Low back pain, unspecified; M15.9 Polyosteoarthritis, unspecified; M70.62 Trochanteric bursitis, left hip; M70.61 Trochanteric bursitis, right hip; Z98.1 Arthrodesis status; Z79.891 Long term (current) use of opiate analgesic; Z79.899 Other long term (current) drug therapy; Z88.8 Allergy status to other drugs, medicaments and biological substances; F10.91 Alcohol use, unspecified, in remission; Z87.891 Personal history of nicotine dependence
CPT/HCPCS: 62323; 64999; J2250; J2704; J3010; J3301

== ENCOUNTER → 2023-11-01 10:36 | Outpatient (BNV) | payer MEDICARE, MEDICAID, SELFPAY | PROVIDERS: PCP Pediatrics; Visit Provider Anesthesiology | DX: M54.18 Radiculopathy, sacral and sacrococcygeal region (principal); M53.3 Sacrococcygeal disorders, not elsewhere classified | CPT/HCPCS: 62323; 64999 ==

== ENCOUNTER 2023-11-28 09:29 | Outpatient (REF) | payer MEDICARE, MEDICAID, SELFPAY ==
--- NOTE | 2023-12-12 11:21 | MHC.AU.MED ---
Medical Clearance for Hearing Instrumentation Date: 12/12/23 Patient Name: Sylvester Salvador Date of : 1975 Primary Care Provider: Referring Provider: Haris Landeros MD We have seen your patient on 12/12/23 and have determined that they are a candidate for amplification (See accompanying report). Specifically, they would benefit from: Hearing aid use in both ears There is a statute that addresses Medical Evaluation Requirements prior to fitting a patient with a hearing aid. According to [place] statute 265 CMR:6.03(1), (a) General. Except as provided in 265 CMR 6.03(1)(b), a hearing therapy director shall not sell a hearing aid unless the prospective user has presented to the hearing therapy director a written statement signed by a licensed physician that states that the patient's hearing loss has been medically evaluated and the patient may be considered a candidate for a hearing aid. The medical evaluation must have taken place within the preceding six months. Please note: Due to the [place] Statute referenced above, we cannot accept a signature other than that of a licensed physician. MANNEQUIN DECORATOR and PA signatures cannot be accepted. I am in agreement with the above recommendation. There is no medical contraindication for hearing instrumentation. Physician Signature Date Physician Name (Printed)
== END 2023-11-28 09:30 | disposition home or self-care (01) ==
LOC: HO.SH 09:29
PROVIDERS: Visit Provider Pediatrics
DX: Z01.118 Encounter for examination of ears and hearing with other abnormal findings (principal); H93.13 Tinnitus, bilateral; H90.42 Sensorineural hearing loss, unilateral, left ear, with unrestricted hearing on the contralateral side
CPT/HCPCS: 92550; 92557; 92588

== ENCOUNTER 2023-12-05 09:02 | Outpatient (AMB) | payer MEDICARE, MEDICAID, SELFPAY ==
[2023-12-05 09:04] VITALS: BP 98/53; PULSE 87; O2SAT 96; BMI 34.0
--- NOTE | 2023-12-05 09:04 | MHC.OFFVIS ---
Vital Signs 12/05/23 09:04 Height 5 ft 5 in Weight 204 lb 2 oz BMI 34.0 BP 98/53 L Blood Pressure Location Rt brachial Position Sitting Pulse 87 Pulse Source Pulse Oximeter Pulse Oximetry (%) 96 Oxygen Delivery Method Room Air Intake Visit Reasons: S/p Ganlion Impar and Caudal IRENA 11/01/23 Allergies NSAIDS (Non-Steroidal Anti-Inflamma Allergy (Intermediate, Verified 10/16/23 15:03) Abdominal Pain/Bleeding HPI Comments Details: Wade is back in my office after caudal IRENA without catheter plus ganglion impar. He reports that his pain in the projection of the coccyx and pain in the projection of the sacral bone is all but gone. He does not feel this pain anymore. He is sitting comfortably in his chair today he reports only moderate pain in the projection of the mid lumbar spine. This probably is secondary to facet arthropathy. He had the past medial branch blocks with very good results but radiofrequency ablation did not help we may try sprint PNS for this patient for his axial back pain. However the major pain of this patient is caudal and sacral, I explained to him that I can not continue performing ganglion impar and caudal IRENA without catheter as needed as long as the need is less frequent and once in 3 months. He was examined by neurosurgery and no procedure was recommended. Prior:? Status? post right sacroiliac joint fusion on 08/10/2022.? He is 14 weeks after the procedure.? He reports decreasw of the pain on the right side however he feels on the background of absence of the pain in the right increased pain on the left.? We discussed today possibility of treating his left sacroiliac joint with fusion.? He also has lumbar spine axial pain which is related to facet joint arthropathy bilaterally.? In the past he received bilateral medial branch block L2-L3 L4 dorsal ramus L5 with very good results of pain relief however the radiofrequency ablation following this procedure did not alleviate his pain significantly enough.? I would need to consider in the future performance of a sprint PNS after repeat of the diagnostic medial branch block injection.? We had very long and detailed conversation today and there are multiple social issues in this patient's live which are obstacles to performance of definitive procedures.? We decided to start with left sacroiliac joint stabilization with fusion pain tech.? I examined x-ray on the patient's back and on x-ray 14 weeks after the procedure the fusion element is very well position in the anterior portion of the right sacroiliac joint. He reported 100% pain improvement for 5 hours after the sacroiliac joint diagnostic injection.? He received diagnostic sacroiliac joint injection with ropivacaine alone no more full than 4 cc into each joint.? There were no steroids in the injectate.? He reported increased mobility, he reports better social interactions improved activities of daily living.? This patient is suffering from some psychological conditions which could be an obstacle form receiving the stimulation.? He was sent for the psychological evaluation however he was denied possibility on implantable devices for the treatment of his pain.? Nevertheless the sacroiliac joint fusion does not require psychological evaluation.? He is reporting coccydynia as well as lower back pain.? He had in the past? ganglion impar injection.? This procedure used to help him on the 1st time, however 2nd injection resulted only in pain aggravation.? Previously done injections on this patient's including medial branch blocks and transforaminal epidural steroid injections resulted in no pain improvement. ?RFA resulted in no pain improvement. He is very tall individual and suffers from multiple sites arthritis including ankle arthritis, knee arthritis, lower back facet joint arthritis and spondylosis and sacroiliac joint arthritis.? He also suffers from bilateral hip trochanteric bursitis which previously was treated with steroid injections.? However now with fusion of the sacroiliac joint is steroids will be contraindicated for the treatment of this condition. He is currently taking Suboxone for his pain control prescribed elsewhere. he reports that Suboxone give him not very adequate pain relief.? He had several sessions of physical therapy in the past which were aggravating his pain ? [facility] Medical History History of alcohol use Enlarged prostate GERD (gastroesophageal reflux disease) Hx of pancreatitis Dental abscess Lyme disease Coccydynia History of bipolar disorder Lumbar spondylosis Thoracic spondylosis Surgical History Hx of oral surgery History of tonsillectomy and adenoidectomy Social History Patient Tobacco Use Status: Current everyday Tobacco user Tobacco use type: Cigarette and Smokeless Tobacco Second Hand Smoke Exposure: No Review of Systems Const All systems reviewed & are unremarkable except as noted in HPI and below Physical Exam Vital Signs: Last Vital Signs Pulse 87 12/05/23 09:04 BP 98/53 L 12/05/23 09:04 Pulse Ox 96 12/05/23 09:04 Oxygen Delivery Method Room Air 12/05/23 09:04 BMI result Body Mass Index 34.0 Const General: comfortable, no acute distress, well developed, alert and awake Eyes Pupils: Equal, round and reactive pupils present EOM: EOMs intact bilaterally Chest Chest palpation & inspection: normal inspection of the chest Resp Effort & Inspection: normal respiratory effort, able to speak in complete sentences, normal respiratory pattern, no audible wheezes and no cough Cardio Jugular venous distension: no JVD Back/Spine/Pelvis Other: tenderness on palpation in paraspinal spinal region in lumbar spine. Loading test is positive. Range of motion in lumbar spine is preserved. Vikram test is positive bilaterally. Gaenslen test is positive bilaterally. Palpation of the sacral bone and especially caudal spine causes significant tenderness. Palpation of the projection of the sacroiliac joints to the skin is also positive for very significant pain increase. Stinchfield test is positive bilaterally. Neuro Cranial nerves: Yes Equal, round and reactive pupils present Psych Other: Speech and movement: Normal speech and movement present Affect: normal affect Attitude: cooperative Thought process: Normal thought process present Thought content: Normal thought content present Insight: Good insight present (Psych) Judgement: Good judgement present (Psych) Assessment & Plan Assessment & Plan (1) Sacroiliac joint dysfunction: Code(s): M53.3 - Sacrococcygeal disorders, not elsewhere classified Category: Medical (2) Sacroiliitis: Code(s): M46.1 - Sacroiliitis, not elsewhere classified Category: Medical (3) Lumbar spondylosis: Code(s): M47.816 - Spondylosis without myelopathy or radiculopathy, lumbar region Category: Medical (4) Coccydynia: Code(s): M53.3 - Sacrococcygeal disorders, not elsewhere classified Category: Medical (5) Chronic pain syndrome: Code(s): G89.4 - Chronic pain syndrome Category: Medical Plan Patient is a status post left SIJ fusion on 12/14/22 with 70-80 % pain relief in the projection of his left SIJ. For 4 months he had excellent results however he said that he was playing with his children at the end of March and started to feel pain in sacroiliac joint again. Very likely he fractured the bridge or possibly bridge did not form and he dislodge the fusion element out. Before that he had right-sided SI joint fusion also with good results on the right but wanted to do sacroiliac joint fusion on the left. Results of ganglion impar injection combined with caudal IRENA without catheter are very good for coccygeal and sacral pain. He is able to sit without difficulty today. It has been 1 month from the the time of the procedure. I told him that we can repeat this procedure once in 3 -4 months. He will give us a call when pain will come back. . Coding Level of Care Code Est Pt Level 3 (62461) Diagnoses Sacroiliac joint dysfunction M53.3 Sacroiliitis M46.1 Lumbar spondylosis M47.816 Coccydynia M53.3 Chronic pain syndrome G89.4
== END 2023-12-05 09:33 | disposition home or self-care (01) ==
PROVIDERS: PCP Pediatrics; Visit Provider Anesthesiology
DX: G89.4 Chronic pain syndrome (principal); M53.3 Sacrococcygeal disorders, not elsewhere classified; M46.1 Sacroiliitis, not elsewhere classified; M47.816 Spondylosis without myelopathy or radiculopathy, lumbar region
CPT/HCPCS: 99213

== ENCOUNTER → 2023-12-05 09:02 | Outpatient (BNVA) | payer MEDICARE, MEDICAID, SELFPAY | PROVIDERS: PCP Pediatrics; Visit Provider Anesthesiology | DX: M53.3 Sacrococcygeal disorders, not elsewhere classified (principal); M46.1 Sacroiliitis, not elsewhere classified; M47.816 Spondylosis without myelopathy or radiculopathy, lumbar region; G89.4 Chronic pain syndrome | CPT/HCPCS: 99212 ==

== ENCOUNTER 2024-12-23 10:59 | Outpatient (AMB) | payer MEDICARE, MEDICAID, SELFPAY ==
[2024-12-23 11:11] VITALS: BP 107/63; O2SAT 98
--- NOTE | 2024-12-23 11:11 | A.OFFVIS_ITS ---
Vital Signs 12/23/24 11:11 Weight 160 lb BP 107/63 Blood Pressure Location Lt brachial Position Sitting Pulse Oximetry (%) 98 Intake Visit Reasons: FU/low back pain patient req Gang Pusher Required: No Allergies NSAIDS (Non-Steroidal Anti-Inflamma Allergy (Intermediate, Verified 12/23/24 11:14) Abdominal Pain/Bleeding Medication List - Last Reconciled 12/23/24 by Haley Cardona, FILE CONVERSION OPERATOR acamprosate 666 mg PO TID aspirin 81 mg PO DAILY buprenorphine-naloxone 4-1 mg 8 mg sublingual Q8H clonazepam 0.5 mg PO BID PRN clopidogrel (Plavix) 75 mg PO DAILY cyclobenzaprine 10 mg PO Q8H 90 days fluticasone propionate 50 mcg/actuation 2 sprays intranasal DAILY gabapentin 200 mg PO BEDTIME galcanezumab-gnlm (Emgality Pen) mg subcut lamotrigine 150 mg PO DAILY levetiracetam (Keppra) 1,500 mg PO BID omeprazole 40 mg PO DAILY tamsulosin 0.4 mg PO BEDTIME Do you need a note to return to daycare/school/sports/work: No HPI Comments Details: Sylvester is back in my office after 2 years of absence. He was under my care with sacroiliitis and sacral radiculopathy. He received sacroiliac joint fusion and this helped his axial pain however he reported continuation of the pain with radiation to the extremities. We performed caudal epidural steroid injection without catheter and the patient reported complete pain remove at least for 1 month after the procedure. Unfortunately he was lost for the follow-up after that and he had a massive stroke most likely thromboembolic in nature. He presents today with hemiparesis with spasticity as well as aphasia. He has stim to be interested in the repetition of the injection however it can not be assessed definitively because he is aphasic and his mother is with him discussing the situation with me. I need to know whether steroid injections contraindicated for this patient. His neurologist is Dr. Elizabeth, on [address] [facility] in [place]. We will request clearance for the caudal epidural steroid injection from this provider. I also explained to the patient that possibility of treatment of his spasticity exists with [facility] baclofen pump program. Prior: after caudal IRENA without catheter plus ganglion impar. He reports that his pain in the projection of the coccyx and pain in the projection of the sacral bone is all but gone. He does not feel this pain anymore. He is sitting comfortably in his chair today he reports only moderate pain in the projection of the mid lumbar spine. This probably is secondary to facet arthropathy. He had the past medial branch blocks with very good results but radiofrequency ablation did not help sprint PNS was considered. Prior:? Status? post right sacroiliac joint fusion on 08/10/2022.? He is 14 weeks after the procedure.? He reports decreasw of the pain on the right side however he feels on the background of absence of the pain in the right increased pain on the left.? We discussed today possibility of treating his left sacroiliac joint with fusion.? He also has lumbar spine axial pain which is related to facet joint arthropathy bilaterally.? In the past he received bilateral medial branch block L2-L3 L4 dorsal ramus L5 with very good results of pain relief however the radiofrequency ablation following this procedure did not alleviate his pain significantly enough.? I would need to consider in the future performance of a sprint PNS after repeat of the diagnostic medial branch block injection.? We had very long and detailed conversation today and there are multiple social issues in this patient's live which are obstacles to performance of definitive procedures.? We decided to start with left sacroiliac joint stabilization with fusion pain tech.? I examined x-ray on the patient's back and on x-ray 14 weeks after the procedure the fusion element is very well position in the anterior portion of the right sacroiliac joint. He reported 100% pain improvement for 5 hours after the sacroiliac joint diagnostic injection.? He received diagnostic sacroiliac joint injection with ropivacaine alone no more full than 4 cc into each joint.? There were no steroids in the injectate.? He reported increased mobility, he reports better social interactions improved activities of daily living.? This patient is suffering from some psychological conditions which could be an obstacle form receiving the stimulation.? He was sent for the psychological evaluation however he was denied possibility on implantable devices for the treatment of his pain.? Nevertheless the sacroiliac joint fusion does not require psychological evaluation.? He is reporting coccydynia as well as lower back pain.? He had in the past? ganglion impar injection.? This procedure used to help him on the 1st time, however 2nd injection resulted only in pain aggravation.? Previously done injections on this patient's including medial branch blocks and transforaminal epidural steroid injections resulted in no pain improvement. ?RFA resulted in no pain improvement. He is very tall individual and suffers from multiple sites arthritis including ankle arthritis, knee arthritis, lower back facet joint arthritis and spondylosis and sacroiliac joint arthritis.? He also suffers from bilateral hip trochanteric bursitis which previously was treated with steroid injections.? However now with fusion of the sacroiliac joint is steroids will be contraindicated for the treatment of this condition. He is currently taking Suboxone for his pain control prescribed elsewhere. he reports that Suboxone give him not very adequate pain relief.? He had several sessions of physical therapy in the past which were aggravating his pain ? [facility] Medical History History of alcohol use Enlarged prostate GERD (gastroesophageal reflux disease) Hx of pancreatitis Dental abscess Lyme disease Coccydynia History of bipolar disorder Lumbar spondylosis Thoracic spondylosis Surgical History Hx of oral surgery History of tonsillectomy and adenoidectomy Social History Patient Tobacco Use Status: Current everyday Tobacco user Tobacco use type: Cigarette and Smokeless Tobacco Second Hand Smoke Exposure: No Review of Systems Const All systems reviewed & are unremarkable except as noted in HPI and below Physical Exam Vital Signs: Last Vital Signs BP 107/63 12/23/24 11:11 Pulse Ox 98 12/23/24 11:11 Const General: comfortable, no acute distress, well developed, alert and awake Eyes Pupils: Equal, round and reactive pupils present EOM: EOMs intact bilaterally Chest Chest palpation & inspection: normal inspection of the chest Resp Effort & Inspection: normal respiratory effort, able to speak in complete sentences, normal respiratory pattern, no audible wheezes and no cough Cardio Jugular venous distension: no JVD Back/Spine/Pelvis Other: tenderness on palpation in paraspinal spinal region in lumbar spine. Loading test is positive. Range of motion in lumbar spine is preserved. Vikram test is positive bilaterally. Gaenslen test is positive bilaterally. Palpation of the sacral bone and especially caudal spine causes significant tenderness. Palpation of the projection of the sacroiliac joints to the skin is also positive for very significant pain increase. Stinchfield test is positive bilaterally. Neuro Cranial nerves: Yes Equal, round and reactive pupils present Psych Other: Speech and movement: Normal speech and movement present Affect: normal affect Attitude: cooperative Thought process: Normal thought process present Thought content: Normal thought content present Insight: Good insight present (Psych) Judgement: Good judgement present (Psych) Assessment & Plan Assessment & Plan (1) Sacroiliac joint dysfunction: Code(s): M53.3 - Sacrococcygeal disorders, not elsewhere classified Category: Medical (2) Sacroiliitis: Code(s): M46.1 - Sacroiliitis, not elsewhere classified Category: Medical (3) Lumbar spondylosis: Code(s): M47.816 - Spondylosis without myelopathy or radiculopathy, lumbar region Category: Medical (4) Coccydynia: Code(s): M53.3 - Sacrococcygeal disorders, not elsewhere classified Category: Medical (5) Chronic pain syndrome: Code(s): G89.4 - Chronic pain syndrome Category: Medical Plan Status post left SIJ fusion on 12/14/22 with 70-80 % pain relief in the projection of his left SIJ. With pain relief for 4 months. Unfortunately he probably dislodge the element. Started to complain on lower back pain. Successful MBB resulted in good pain improvement of the lumbar spine. However RFA did not result in any pain improvement. Very good pain relief from caudal IRENA with catheter combine with ganglion impar injection resulted in great pain relief at least for 1 month after the procedure he was seeing me for. Unfortunately he was lost for the follow-up he had a stroke now he has paraplegia with spasticity and aphasia. He is suffering from grand mal seizures. He is here with his mom and she expresses the desire to repeat this injection. I need to request a clearance from the neurologist in [facility] Dr. Elizabeth to perform this procedure. If clearance will be obtained I will perform under sedation caudal epidural steroid injection without catheter and ganglion impar injection. . Coding Level of Care Code Est Pt Level 3 (70809) Diagnoses Sacroiliac joint dysfunction M53.3 Sacroiliitis M46.1 Lumbar spondylosis M47.816 Coccydynia M53.3 Chronic pain syndrome G89.4
--- OUTSIDE RECORDS SUMMARY | 2024-12-23 12:01 | XMS_ITS | Encounter Summary ---
Author Organization [facility] Address [address] [place] [address] Care Team Providers Care Warehouse Material Handler Name Role Phone Conor Landeros MD Primary Care Provider [phone] Reason for Visit * Reason Onset Date Comments Fitting for DME 12/17/2024 Encounter Details Date Type Department Care Team ([facility] st Contact Info) Description 12/17/2024 Telephone Adult Medicine - [place] [address] [place] [phone] Kanchan Mccurdy NP [address] [place] [address] Fitting for DME Social History Tobacco Use Types Packs/Day Years Used Date Smoking Tobacco: Every Day Cigarettes 0.5 35.4 Started: 08/12/1989 Smokeless Tobacco: Never Alcohol Use Standard Drinks/Week Comments No 0 (1 standard drink = 0.6 oz pur e alcohol) Sex and Gender Information Value Date Recorded Sex Assigned at Male 10/21/2024 2:34 PM EDT Legal Sex Male 2:17 PM EST Gender Identity Male 10/21/2024 2:34 PM EDT Sexual Orientation Straight 10/21/2024 2: 34 PM EDT documented as of this encounter Progress Notes * Kanchan Mccurdy NP - 12/23/2024 11:29 AM EDT Signed. * Rosa Blas MA - 12/23/2024 9:57 AM EDT Wrist R hand splint In your in basket. Thank you in advance * Kanchan Mccurdy NP - 12/17/2024 12:55 PM EDT Fitting For DME right hand splint please see note from today Fax order to [facility] documented in this encounter Plan of Treatment Upcoming Encounters Date Type Department Care Team (Late st Contact Info) Description 01/07/2025 11:00 AM EDT Treatment [facility] Occupational Therapy [address] [place] [phone] Kimo Ferrell, OT 03/18/2025 11:00 AM EDT Office Visit Adult Medicine - [place] [address] [place] [phone] Kanchan Mccurdy NP [address] [place] [address] documented as of this encounter Goals Goal Patient Goal Type Associated Problems Recent Progress Patient-Stated? Author ST LTG General No Rivka Vance, BED PLACEMENT COORDINATOR Note: Pt will improve expressive receptive language skills to participate and communicate at sentence level in iADLs with supervision ST STG1 General No change(2024 1:43 PM EST) No Rivka Vance, BED PLACEMENT COORDINATOR Note: Pt will participate in ongoing education re aphasia and apraxia s/p CVA and techniques to minimize effects on communication ST STG2 General Improving(05/2025 12:42 PM EST) No Rivka Vance, BED PLACEMENT COORDINATOR Note: Pt will verbalize appropriate responses during automatic speech tasks given mod verbal cues to be 70%ac- goal met Pt will verbalize appropriate responses during automatic speech tasks given min verbal cues to be 90%ac ST STG3 General No change(2024 1:45 PM EST) No Rivka Vance, BED PLACEMENT COORDINATOR Note: Pt will assist with development of personalized script targeting family names, favorite foods and hobbies and read words aloud with 70%ac given mod cues- scripts created but pt with limited carryover to practice, con't goal ST STG4 General No change(2024 1:46 PM EST) No Rivka Vance, BED PLACEMENT COORDINATOR Note: Pt will match pictures to sentences in Fx4 in reading comprehension tasks with min cues to be 80%ac- pt is best with words at this time, con't goal ST STG5 General Worsening( 1:46 PM EST) No Rivka Vance, BED PLACEMENT COORDINATOR Note: Pt will answer complex yes/no questions given foils with min repetition to be 80%ac - limited due to severity of auditory comprehension deficits. Will target AC with more concrete info PT LTGs General No Nico Mendieta, PT Note: Pt will ambulate with right AFO x600 ft with full right foot clearance for safe ambulation Pt will increase right ankle DF PROM to 5 degrees to allow proper fit of right AFO Pt will ascend/descend 4 steps with right AFO and reciprocal stepping pattern with one rail for LUE Pt will be independent with HEP OT STGs General On track( 025 5:31 PM EST) Yes Natasha Marquez, OT Note: 1- Pt will participate in self PROM/ROM to begin to increase tolerance to movement and PROM in R UE - Met 2- Pt will participate in neuromuscular facilitation to increase R UE functional use - Progressing toward goal 3- Pt will demo ability to use one handed tech/AE to perform cutting of food and other basic kitchen tasks - Not Met 4- pt will demo at least 10 degree increase in PROM shoulder, elbow and wrist - Met in supine OT LTGs General Improving(02/ 01/2025 2:44 PM EST) Yes Natasha Marquez, OT Note: 1- Pt will be I with HEP to increase R UE functional use 2- Pt will maximize functional use of R UE as gross/functional assist 3- Pt will be I with one handed tech/AE to complete home mgmt tasks such as cutting food 4- Pt will be I with simple meal prep and light housekeeping 5-Pt will demo ability to access community to complete a simple errand/leisure activity <enter goal here> General Yes Rivka Vance, BED PLACEMENT COORDINATOR [facility] General No Rivka Vance, BED PLACEMENT COORDINATOR Note: Pt will utilize high tech AAC to express his feelings, food preferences and medical concerns with min verbal and visual cues documented as of this encounter Visit Diagnoses Diagnosis Wrist drop, acquired, right- Primary Cerebrovascular accident (CVA) due to embolism of middle cerebral artery, unspecified blood vessel laterality (CMS/FORMER[facility] V24, CMS/FORMERLY [facility] V28) documented in this encounter Orders General Supply Count Last Ordered Date First Or dered Date SPLINT WRIST COCKUP RIGHT 1 12/23/2024 documented in this encounter Care Teams Warehouse Material Handler Relationship Specialty Start Date End Date Conor Landeros MD [address] [place] [id number] PCP - General Internal Medicine 04/20/21 documented as of this encounter
--- OUTSIDE RECORDS SUMMARY | 2024-12-23 12:01 | XMS_ITS | Clinical Summary ---
Author Organization [facility] Address [address] [place] [address] Care Team Providers Care Inking Machine Tender Name Role Phone Haris Landeros MD Primary Care Provider Unava ilable Social History Tobacco Use Types Packs/Day Years Used Date Smoking Tobacco: Never Assessed Sex and Gender Information Value Date Recorded Sex Assigned at Not on file Legal Sex Male 1:39 PM EDT Gender Identity Not on file Sexual Orientation Not on file Plan of Treatment Health Maintenance Due Date Last Done Comments Hepatitis C Virus Screening 1976 HIV Screening 1989 DTaP/Tdap/Td Vaccines (1 - Tdap) 1995 Hepatitis B Vaccines (1 of 3 - 19+ 3-dose series) 1995 COVID-19 Vaccine (2023-2 5 season) 2024 Pneumococcal Vaccine: Pediat clemente (0-5 Years) and At-Risk Patients (6 to 49 Years) Aged Out No longer eligible b ased on patient's age to complete this topic Care Teams Inking Machine Tender Relationship Specialty Start Date End Date Haris Landeros MD PCP - General
--- OUTSIDE RECORDS SUMMARY | 2024-12-23 12:02 | XMS_ITS | Clinical Summary ---
Author Organization [facility] [address] [facility] lding Address [address] [place] [address] Phone Care Team Providers Care Baby Nurse Name Role Phone Conor Landeros MD Primary Care Provider [phone] Allergies Active Allergy Reactions Criticality Noted Date Comments Amoxicillin 11/16/2021 unknown Cephalexin 05/29/2021 unknown Doxycycline 02/24/2020 pancreatitis Nsaids (Non-Steroidal Anti-Inflammatory Drug) 10/30/2017 Rectal bleeding Penicillins 11/16/2021 unknown Medications sennosides/docu sate sodium (STOOL SOFTENER-LAXATI VE ORAL) Take by mouth daily. Active fluticasone propionate (FLONASE) 50 mcg/actuation nasal spray 4 Active lamoTRIgine (LaMICtal) 200 mg tablet daily. 3 Active acetaminophen (TYLENOL) 500 mg tablet Take 1 tablet (500 mg total) by mouth every 6 (six) hours if needed for mild pain. Active aspirin 81 mg EC tablet Take 1 tablet (81 mg total) by mouth 1 (one) time each day. Active pyridoxine (B-6) 50 mg tablet Take 1 tablet (50 mg total) by mouth 1 (one) time each day. Active thiamine (thiamine mononitrate, vit B1,) 100 mg tablet Take 1 tablet (100 mg total) by mouth 1 (one) time each day. Active gabapentin (NEURONTIN) 300 mg capsule TAKE 1 CAPSULE BY MOUTH THREE TIMES A DAY 270 capsule 1 5 Active lamoTRIgine (LaMICtal) 100 mg tablet TAKE 1 TABLET FOR 7 DAYS AND TAPER TO HALF TABLET DAILY Active famotidine (PEPCID) 20 mg tablet TAKE 1 TABLET BY MOUTH TWICE A DAY 180 tablet 5 Active folic acid (FOLVITE) 1 mg tablet TAKE 1 TABLET BY MOUTH 1 TIME EACH DAY. 90 tablet 5 Active atorvastatin (LIPITOR) 80 mg tablet TAKE 1 TABLET BY MOUTH EVERYDAY AT BEDTIME 90 tablet 5 Active ketoconazole (NIZORAL) 2 % cream APPLY TWICE A DAY NEEDED FOR RASH 30 g 4 5 Active baclofen (LIORESAL) 10 mg tablet TAKE 1 TABLET BY MOUTH THREE TIMES A DAY 270 tablet 1 5 Active FLUoxetine (PROzac) 20 mg capsule Take 1 capsule (20 mg total) by mouth 1 (one) time each day. 90 capsule 1 5 Active levETIRAcetam (KEPPRA) 750 mg tabletIndicatio ns:started at [facility] for general tonic clonic seizure-new onset Take 2 tablets (1,500 mg total) by mouth 2 (two) times a day. Active triamcinolone (KENALOG) 0.1 % cream Apply to affected area 2 times daily as needed 15 g 1 5 02/20/20 25 Active triamcinolone (KENALOG) 0.1 % cream Apply to affected area 1-2 times daily as needed. 15 g 1 5 12/01/19 25 Active Problems Problem Noted Date Diagnosed Date Seizure ([facility] V24, [facility] V28) 12/21/2024 Seborrhea of face 12/21/2024 Hypercholesteremia 10/01/2024 Lyme disease 06/09/2024 PFO (patent foramen ovale) 05/04/2024 CVA (cerebral vascular accident) ([facility] V24, [facility] V28) 04/22/2024 Overview (06/24/2024): 04/04. Left ICA occlusion. PFO Hypercoag? Nonintractable headache 09/24/2023 GERD (gastroesophageal reflux disease) 2 Gatito Shin infection 09/29/2021 Overweight (BMI 25.0-29.9) 09/20/2021 BPH (benign prostatic hyperplasia) 06/17/2019 Anxiety 10/08/2017 Asthma 10/04/2017 H/O: substance abuse ([facility] V24, [facility] V28) 10/04/2017 Overview (06/09/2024): Alcohol, Cocaine, non prescribed Adderal approx 2009. [facility], suboxone-Belbuca for pain (not addiction) Fibromyalgia 09/03/2016 Overview (06/09/2024): Chronic pain syndrome, myalgia. ADD (attention deficit disorder) 09/03/2016 Bipolar disorder ([facility] V24, [facility] V28) 08/13 Overview (06/09/2024): IP hosp 10/2015,07/2015, 2011, 2008, 2004,1996 PTSD (post-traumatic stress disorder) 09/03/2016 Intervertebral disc disorder 09/03/2016 Overview (06/09/2024): Intervertebral disc prolapse with impingement MRI 03/2017, stable Right foraminal/ far lateral annular disc tear at L3-L4 where disc material contacts the exiting R L3 nerve root. [facility], Spine rehab Dr Hardy- pain management Encounters Date Type Department Care Team Description 12/21/2024 11:00 AM EDT Office Visit Adult [address] [phone] Conor Landeros MD Hospital discharge follow-up (Primary Dx); Seizure ([facility] V24, [facility] V28); Pneumonia of both lower lobes due to infectious organism; Seborrhea of face 12/17/2024 11:00 AM EDT Office Visit [address] [phone] Kanchan Mccurdy NP Cerebrovascular accident (CVA) due to embolism of middle cerebral artery, unspecified blood vessel laterality ([facility] V24, [facility] V28) (Primary Dx) 12/17/2024 Telephone Adult [address] [place] [address] Kanchan Mccurdy, BASILIA Fitting for DME 12/09/2024 Telephone Adult [address] [phone] Conor Landeros MD [facility] Follow-up 12/09/2024 Telephone Adult [facility] [address] [place] [address] Conor Landeros MD 11/04/2024 2:00 PM EDT Treatment [facility] Speech [address] [phone] Rivka Vance, SHUTTLE BUGGY OPERATOR Aphasia (Primary Dx); Cerebrovascular accident (CVA) due to embolism of middle cerebral artery, unspecified blood vessel laterality (CMS/HCC V24, CMS/HCC V28); Apraxia 11/04/2024 1:15 PM EDT Treatment [address] [phone] Nancy Rajput, PT Cerebrovascular accident (CVA), unspecified mechanism (CMS/HCC V24, CMS/HCC V28) (Primary Dx) 11/02/2024 1:00 PM EDT Treatment [address] [phone] Rivka Vance, SHUTTLE BUGGY OPERATOR Aphasia (Primary Dx); Cerebrovascular accident (CVA) due to embolism of middle cerebral artery, unspecified blood vessel laterality (CMS/HCC V24, CMS/HCC V28); Cerebrovascular accident (CVA), unspecified mechanism (CMS/HCC V24, CMS/HCC V28) 11/02/2024 12:15 PM EDT Treatment [address] [phone] Nancy Rajput, PT Cerebrovascular accident (CVA), unspecified mechanism (CMS/HCC V24, CMS/HCC V28) (Primary Dx) 10/29/2024 2:00 PM EDT Treatment [address] [phone] Nancy Rajput PT Cerebrovascular accident (CVA), unspecified mechanism (CMS/HCC V24, CMS/HCC V28) (Primary Dx) 10/28/2024 Telephone [facility] [address] [place] [phone] Conor Landeros MD Referral (Apr 2024 Epic referral ) 10/26/2024 Telephone Adult Medicine [facility] [address] [place] [address] Conor Landeros MD Fitting for DME 10/21/2024 3:45 PM EDT Treatment [facility] Speech Therapy [address] [phone] Rivka Vance, SHUTTLE BUGGY OPERATOR Aphasia (Primary Dx); Cerebrovascular accident (CVA) due to embolism of middle cerebral artery, unspecified blood vessel laterality (CMS/HCC V24, CMS/HCC V28) 10/21/2024 3:00 PM EDT Treatment [facility] Outpatient Rehabilitation [facility] [address] [phone] Cesar Foreman PTA Cerebrovascular accident (CVA), unspecified mechanism (CMS/HCC V24, CMS/HCC V28) (Primary Dx) 10/21/2024 2:15 PM EDT Treatment [facility] Occupational Therapy [address] [phone] Stormy Kovacs LYNNE/Patt Cerebrovascular accident (CVA), unspecified mechanism (CMS/HCC V24, CMS/HCC V28) (Primary Dx) 10/21/2024 Telephone Adult Medicine - [place] [address] [place] [address] Conor Landeros MD Fitting for DME 10/20/2024 Telephone Adult Medicine - [place] [address] [place] [address] Conor Landeros MD 10/19/2024 12:30 PM EDT Treatment [facility] Occupational Therapy [address] [phone] Kimo Ferrell, OT Cerebrovascular accident (CVA), unspecified mechanism (CMS/HCC V24, CMS/HCC V28) (Primary Dx) 10/19/2024 11:45 AM EDT Treatment [address] [phone] Nancy Rajput PT Cerebrovascular accident (CVA), unspecified mechanism (CMS/HCC V24, CMS/HCC V28) (Primary Dx) 10/14/2024 2:15 PM EST Treatment [address] [phone] Cesar Foreman PTA Cerebrovascular accident (CVA), unspecified mechanism (CMS/HCC V24, CMS/HCC V28) (Primary Dx) 10/14/2024 1:30 PM EST Treatment [facility] Occupational [address] [phone] Stormy Kovacs COTA/Patt Cerebrovascular accident (CVA), unspecified mechanism (CMS/HCC V24, CMS/HCC V28) (Primary Dx) 10/14/2024 12:45 PM EST Treatment [facility] Speech [address] [phone] Rivka Vance, SHUTTLE BUGGY OPERATOR Aphasia (Primary Dx); Cerebrovascular accident (CVA) due to embolism of middle cerebral artery, unspecified blood vessel laterality (CMS/HCC V24, CMS/HCC V28) 10/13/2024 Telephone Adult [address] [phone] Conor Landeros MD Fitting for DME (Speech Generating Device) 10/07/2024 1:30 PM EST Treatment [facility] Occupational [address] [phone] Stormy Kovacs COTA/Patt Cerebrovascular accident (CVA), unspecified mechanism (CMS/HCC V24, CMS/HCC V28) (Primary Dx) 10/07/2024 12:45 PM EST Treatment [facility] Speech [address] [phone] Rivka Vance, SHUTTLE BUGGY OPERATOR Aphasia (Primary Dx); Cerebrovascular accident (CVA) due to embolism of middle cerebral artery, unspecified blood vessel laterality (CMS/HCC V24, CMS/HCC V28) 10/07/[address] [phone] Conor Landeros MD Fitting for DME (Right Custom AFO) 10/05/2024 1:30 PM EST Treatment [facility] Occupational Therapy [address] [place] [phone] Kimo Ferrell OT Cerebrovascular accident (CVA), unspecified mechanism (CMS/HCC V24, CMS/HCC V28) (Primary Dx) 10/05/2024 12:45 PM EST Treatment [facility] Speech Therapy [address] [place] [phone] Rivka Vance, SHUTTLE BUGGY OPERATOR Aphasia (Primary Dx); Cerebrovascular accident (CVA) due to embolism of middle cerebral artery, unspecified blood vessel laterality (CMS/HCC V24, CMS/HCC V28) 10/01/2024 10:45 AM EST Office Visit [address] [phone] Conor Landeros MD Cerebrovascular accident (CVA), unspecified mechanism (CMS/HCC V24, CMS/HCC V28) (Primary Dx); Hypercholesteremia; Rash 09/30/2024 2:30 PM EST Treatment [facility] [address] [phone] Nancy Rajput PT Cerebrovascular accident (CVA), unspecified mechanism (CMS/HCC V24, CMS/HCC V28) (Primary Dx) 09/30/2024 1:30 PM EST Treatment [facility] Occupational Therapy [address] [place] [phone] Stormy Kovacs COTA/Patt Cerebrovascular accident (CVA), unspecified mechanism (CMS/HCC V24, CMS/HCC V28) (Primary Dx) 09/30/2024 12:45 PM EST Treatment [facility] Speech [facility] [address] [phone] Rivka Vance, SHUTTLE BUGGY OPERATOR Aphasia (Primary Dx); Cerebrovascular accident (CVA) due to embolism of middle cerebral artery, unspecified blood vessel laterality ([facility] V24, [facility] V28) 09/28/2024 2:15 PM EST Treatment [address] [phone] Nico Mendieta, PT Cerebrovascular accident (CVA), unspecified mechanism ([facility] V24, [facility] V28) (Primary Dx) 09/28/2024 1:30 PM EST Treatment [facility] Occupational [address] [phone] Britta Hartmann COTA 09/28/2024 12:45 PM EST Treatment [facility] Speech [address] [phone] Rivka Vance, SHUTTLE BUGGY OPERATOR Aphasia (Primary Dx); Cerebrovascular accident (CVA) due to embolism of middle cerebral artery, unspecified blood vessel laterality ([facility] V24, [facility] V28) 08/14/2024 Plan of Care Documentation [facility] Occupational [address] [phone] from Last 3 Months Immunizations Name Administration Dates Next Due Influenza Quadravalent, MDCK , 0.5ml, preservative free (Flucelvax) 6mo and older 07/30/2023 Influenza Quadravalent, MDCK , 0.5ml, with preservative (Flucelvax) 6mo and older 05/26/2018 Moderna SARS-CoV-2 COVID-19, mRNA, LNP-S, preservative free 05/18/2021 Surgical History Surgery Date Site/Laterality Comments TONSILLECTOMY 1989 PROCEDURE: HISTORICAL TONSILLECTOMY COLONOSCOPY 08/10/2016 PROCEDURE: HISTORICAL COLONOSCOPY; COMMENT: non-bleeding internal and external hemorrhoids, repeat 10 yrs UPPER GASTROINTESTINAL ENDOSCOPY 05/04/2020 PROCEDURE: OR UPPER GI ENDOSCOPY PERFORMED; COMMENT: gastritis and possible celiac. UPPER GASTROINTESTINAL ENDOSCOPY 10/05/2016 PROCEDURE: OR UPPER GI ENDOSCOPY PERFORMED; COMMENT: normal UPPER GASTROINTESTINAL ENDOSCOPY 09/14/2020 PROCEDURE: OR UPPER GI ENDOSCOPY PERFORMED; COMMENT: Normal. COLONOSCOPY Normal. PROCEDURE: HISTORICAL COLONOSCOPY COLONOSCOPY PROCEDURE: HISTORICAL COLONOSCOPY; COMMENT: Performed with endoscopy on September 14, 2020-normal Medical History Medical History Date Comments Fibromyalgia 09/03/2016 DX:Fibromyalgia ADD (attention deficit disorder) 09/03/2016 DX:ADD (attention deficit disorder) PTSD (post-traumatic stress disorder) 09/03/2016 DX:PTSD (post-traumatic stress disorder) Intervertebral disc prolapse with impingement 09/03/2016 DX:Intervertebral disc prola pse with impingement; COMMENT: MRI 03/2017, stable Right foraminal/ far lateral annular disc tear at L3-L4 where disc material contacts the exiting R L3 nerve root. [facility] History of ehrlichiosis 10/01/2017 DX:Histo ry of ehrlichiosis; COMMENT: Ehrlichia and/or Lyme, conflicting entries noted Asthma 10/04/2017 DX:Asthma H/O: substance abuse ([facility] V24, [facility] V28) 10/04/2017 DX:H/O: substance abuse ([facility] ); COMMENT: Alcohol, Cocaine, non prescribed Adderal. Hemorrhoids, internal, with bleeding 10/01/2017 DX:Hemorrhoids, internal, with bleeding; COMMENT: Provoked by NSAIDs, Colonoscopy noted external & internal hemms- non bleeding, repeat 10 yrs. Anxiety 10/08/2017 DX:Anxiety Bipolar disorder ([facility] V2 4, [facility] V28) 09/03/2016 DX:Bipolar disorder ([facility]); COMMENT: IP hosp 10/2015,07/2015, 2011, 2008, 2004,1995 Constipation, chronic DX:Constip ation, chronic Drug induced constipation DX:Suhail g induced constipation Generalized body aches DX:Genera lized body aches Constipation due to slow transit DX:Constipation due to slow transit Thrush of mouth and esophagu s ([facility] V24, [facility] V28) DX:Thrush of mouth and esoph jesusita ([facility]) Abdominal wall strain DX:Abdomin al wall strain Gastritis DX:Gastritis Abdominal bloating DX:Abdominal bloating Lyme disease DX:Lyme disease Gatito Shin infection DX:Epstei n Shin infection Epigastric pain DX:Epigastric pa in Fatigue DX:Fatigue GERD (gastroesophageal reflux disease) DX:GERD (gastroesophageal reflux disease) Thoracic spondylosis 09/29/2021 DX:Thoracic spondylosis Lumbar spondylosis 09/29/2021 DX:Lumbar spo ndylosis Sacrococcygeal disorders, no t elsewhere classified 09/29/2021 DX:Sacrococcygeal disorders, not elsewhere classified; COMMENT: Relief with ganglion impar injections. Atypical chest pain DX:Atypical chest pain Dysphagia DX:Dysphagia CVA (cerebral vascular accid ent) ([facility]/HCC V24, CMS/HCC V28) 04/22/2024 DX:CVA (cerebral vascular accident) ([facility]) Hypercholesteremia 10/01/2024 Family History Medical History Relation Name Comments Other: Substance Abuse Brother Julio Cesar Brain cancer Father at 54, Dep ression Colon cancer Maternal Grandfather at 56 Prostate cancer Maternal Grandfather Other: arthritis and fibromyalgia Maternal Grandmother Bipolar disorder Mother Heart attack Paternal Grandfather multipl e Dementia Paternal Grandmother Other: Substance Abuse Sister Chanda Relation Name Status Comments Brother Julio Cesar Alive Father Maternal Grandfather Maternal Grandmother Mother Paternal Grandfather Paternal Grandmother Sister Chanda Alive Social History Tobacco Use Types Packs/Day Years Used Date Smoking Tobacco: Every Day Cigarettes 0.5 35.4 Started: 08/12/1989 Smokeless Tobacco: Never Tobacco Cessation:Ready to Q uit: Not Asked; Counseling Given: Not Answered Alcohol Use Standard Drinks/Week Comments No 0 (1 standard drink = 0.6 oz pur e alcohol) Sex and Gender Information Value Date Recorded Sex Assigned at Male 10/21/2024 2:34 PM EDT Legal Sex Male 2:17 PM EST Gender Identity Male 10/21/2024 2:34 PM EDT Sexual Orientation Straight 10/21/2024 2: 34 PM EDT Obstetrics History Last Filed Vital Signs Vital Sign Reading Time Taken Comments Blood Pressure 118/67 12/21/2024 11:07 AM EDT Pulse 55 12/21/2024 11:07 AM EDT Temperature 36.9 ??C (98.4 ??F) 12/21/2024 11:07 AM E DT Respiratory Rate - - Oxygen Saturation - - Inhaled Oxygen Concentration - - Weight 72.6 kg (160 lb) 12/17/2024 11:06 AM EDT Height 180.3 cm (5' 11 ) 12/21/2024 11:07 AM EDT Body Mass Index 22.96 12/17/2024 11:06 AM EDT Plan of Treatment Upcoming Encounters Date Type Department Care Team (Late st Contact Info) Description 01/07/2025 11:00 AM EDT Treatment [facility] Occupational Therapy [address] [facility] [address] [place] [phone] Kimo Ferrell, OT 03/18/2025 11:00 AM EDT Office Visit Adult Medicine - [place] [address] [place] [address] Kanchan Mccurdy NP [address] [place] [address] Health Maintenance Due Date Last Done Comments Hepatitis B Vaccines (1 of 3 - 19+ 3-dose series) 1995 Pneumococcal Vaccine: Pediatrics (0 to 5 Years) and At-Risk Patients (6 to 64 Years) (1 of 2 - PCV) 1995 Depression Screening 07/21/2022 HIV Screening 07/21/2022 Hepatitis C Screening 07/21/2022 Medicare Annual Wellness Visit 07/21/2022 Social Influencers of Health Screening 07/21/2022 COVID-19 Vaccine ( season) 2024 05/18/2021, 12/09/2020, 11/11/2020 Cholesterol Screening (Lipid Panel) 10/01/2029 10/01/2024, 02/05/2023 Colorectal Cancer Screening: Colonoscopy 09/14/2030 09/14/2020 DTaP,Tdap,and Td Vaccines (2 - Td or Tdap) 12/13/2030 12/13/2020 Influenza Vaccine Discontinued 07/30/2023, , 05/18/2021, Additional history exists HIB Vaccines Aged Out No longer eligi ble based on patient's age to complete this topic HPV Vaccines Aged Out No longer eligi ble based on patient's age to complete this topic Hepatitis A Vaccines Aged Out No long er eligible based on patient's age to complete this topic IPV Vaccines Aged Out No longer eligi ble based on patient's age to complete this topic MMR Vaccines Aged Out No longer eligi ble based on patient's age to complete this topic Meningococcal ACWY Vaccine Aged Out N o longer eligible based on patient's age to complete this topic Meningococcal B Vaccine Aged Out No l onger eligible based on patient's age to complete this topic RSV Immunization Patients Under 20 months Aged Out No longer eligible based on patient's age to complete this topic Varicella Vaccines Aged Out No longer eligible based on patient's age to complete this topic Goals Goal Patient Goal Type Associated Problems Recent Progress Patient-Stated? Author ST LTG General No Rivka Vance, SHUTTLE BUGGY OPERATOR Note: Pt will improve expressive receptive language skills to participate and communicate at sentence level in iADLs with supervision ST STG1 General No change(2024 1:43 PM EST) No Rivka Vance, SHUTTLE BUGGY OPERATOR Note: Pt will participate in ongoing education re aphasia and apraxia s/p CVA and techniques to minimize effects on communication ST STG2 General Improving(05/2025 12:42 PM EST) No Rivka Vance, SHUTTLE BUGGY OPERATOR Note: Pt will verbalize appropriate responses during automatic speech tasks given mod verbal cues to be 70%ac- goal met Pt will verbalize appropriate responses during automatic speech tasks given min verbal cues to be 90%ac ST STG3 General No change(2024 1:45 PM EST) No Rivka Vance, SHUTTLE BUGGY OPERATOR Note: Pt will assist with development of personalized script targeting family names, favorite foods and hobbies and read words aloud with 70%ac given mod cues- scripts created but pt with limited carryover to practice, con't goal ST STG4 General No change(2024 1:46 PM EST) No Rivka Vance, SHUTTLE BUGGY OPERATOR Note: Pt will match pictures to sentences in Fx4 in reading comprehension tasks with min cues to be 80%ac- pt is best with words at this time, con't goal ST STG5 General Worsening( 1:46 PM EST) No Rivka Vance, SHUTTLE BUGGY OPERATOR Note: Pt will answer complex yes/no questions [...] - Met in supine OT LTGs General Improving(01/2025 2:44 PM EST) Yes Natasha Marquez, OT [...] <enter goal here> General Yes Rivka Vance, SHUTTLE BUGGY OPERATOR ST STG General No Rivka Vance, SHUTTLE BUGGY OPERATOR Note: Pt will utilize high tech AAC to express his feelings, food preferences and medical concerns with min verbal and visual cues Procedures Procedure Name Priority Date/Time Associated Diagnosis Comments CBC WITH AUTO DIFFERENTIAL Routine 10/01/2024 11:28 AM EST Cerebrovascular accident (CVA), unspecified mechanism (CMS/HCC V24, CMS/HCC V28) COMPREHENSIVE METABOLIC PANEL Routine 10/01/2024 11:28 AM EST Hypercholesteremia LIPID PANEL WITH REFLEX TO DIRECT LDL Routine 10/01/2024 11:28 AM EST Hypercholesteremia CBC AND DIFFERENTIAL Routine 10/01/2024 11:28 AM EST Cerebrovascular accident (CVA), unspecified mechanism (CMS/HCC V24, CMS/HCC V28) HM COLONOSCOPY Routine 09/14/2020 from Last 3 Months or Most Recently Relevant to Health Maintenance Results * Lipid panel with reflex to direct LDL (10/01/2024 11:28 AM EST) Cholesterol 112 0 - 200 mg/dL LAB CHEMISTRY METHOD 10/01/2024 3:39 PM [facility] Triglycerides 79 0 - 150 mg/dL LAB CHEMISTRY METHOD 10/01/2024 3:39 PM [facility] HDL 46 >=40 mg/dL LAB CHEMISTRY METHOD 10/01/2024 3:39 PM [facility] LDL Calculated 50 0 - 100 mg/dL LAB CHEMISTRY METHOD 10/01/2024 3:39 PM [facility] VLDL Cholesterol Rashid 15.8 mg/dL LAB CHEMISTRY METHOD 10/01/2024 3:39 PM [facility] Non HDL Chol. (LDL+VLDL) 66 <145 mg/dL LAB CHEMISTRY METHOD 10/01/2024 3:39 PM [facility] Chol/HDL Ratio 2.4 0.0 - 4.4 LAB CHEMISTRY METHOD 10/01/2024 3:39 PM [facility] Blood Venous blood specimen / Unknown Venipuncture / Unknown 10/01/2024 11:28 AM EST 10/01/2024 11:28 AM EST us C Ed Landeros MD LAB BLOOD ORDERABLES Final Res ult [facility] [address], [place] [address], * (ABNORMAL) CBC auto differential (10/01/2024 11:28 AM EST) WBC 8.5 4.8 - 10.8 K/mcL LAB HEMETOLOGY METHOD 10/01/2024 3:25 PM [facility] RBC 5.10 4.50 - 5.50 M/mcL LAB HEMETOLOGY METHOD 10/01/2024 3:25 PM [facility] Hemoglobin 15.4 13.5 - 17.5 g/dL LAB HEMETOLOGY METHOD 10/01/2024 3:25 PM [facility] Hematocrit 48.5 42.0 - 54.0 % LAB HEMETOLOGY METHOD 10/01/2024 3:25 PM [facility] MCV 94.4 79.0 - 98.0 FL LAB HEMETOLOGY METHOD 10/01/2024 3:25 PM [facility] MCH 30.0 27.0 - 32.0 pcg LAB HEMETOLOGY METHOD 10/01/2024 3:25 PM [facility] MCHC 31.8(L) 32.0 - 37.0 g/dL LAB HEMETOLOGY METHOD 10/01/2024 3:25 PM [facility] RDW 13.3 11.0 - 15.0 % LAB HEMETOLOGY METHOD 10/01/2024 3:25 PM [facility] Platelets 334 130 - 400 K/mcL LAB HEMETOLOGY METHOD 10/01/2024 3:25 PM [facility] MPV 9.6 7.0 - 11.0 FL LAB HEMETOLOGY METHOD 10/01/2024 3:25 PM [facility] NRBC 0.0 <1.0 % LAB HEMETOLOGY METHOD 10/01/2024 3:25 PM [facility] NRBC Absolute 0.00 <0.10 K/mcL LAB HEMETOLOGY METHOD 10/01/2024 3:25 PM [facility] Neutrophils Relative 47.2 % LAB HEMETOLOGY METHOD 10/01/2024 3:25 PM [facility] Lymphocytes Relative 44.6 % LAB HEMETOLOGY METHOD 10/01/2024 3:25 PM [facility] Monocytes Relative 6.0 % LAB HEMETOLOGY METHOD 10/01/2024 3:25 PM [facility] Eosinophils Relative 1.3 % LAB HEMETOLOGY METHOD 10/01/2024 3:25 PM [facility] Basophils Relative 0.5 % LAB HEMETOLOGY METHOD 10/01/2024 3:25 PM [facility] Immature Granulocytes Relative 0.4 % LAB HEMETOLOGY METHOD 10/01/2024 3:25 PM [facility] Neutrophils Absolute 3.99 1.50 - 7.00 K/mcL LAB HEMETOLOGY METHOD 10/01/2024 3:25 PM [facility] Lymphocytes Absolute 3.77 1.00 - 5.00 K/mcL LAB HEMETOLOGY METHOD 10/01/2024 3:25 PM [facility] Monocytes Absolute 0.51 0.20 - 1.00 K/mcL LAB HEMETOLOGY METHOD 10/01/2024 3:25 PM [facility] Eosinophils Absolute 0.11 0.00 - 0.50 K/mcL LAB HEMETOLOGY METHOD 10/01/2024 3:25 PM [facility] Basophils Absolute 0.04 0.00 - 0.20 K/mcL LAB HEMETOLOGY METHOD 10/01/2024 3:25 PM [facility] Immature Granulocytes Absolute 0.03 0.00 - 0.03 K/mcL LAB HEMETOLOGY METHOD 10/01/2024 3:25 PM [facility] Blood Venous blood specimen / Unknown Venipuncture / Unknown 10/01/2024 11:28 AM EST 10/01/2024 11:28 AM EST C Ed Landeros MD LAB BLOOD ORDERABLES Final Res ult [facility] [address] [place] [address], * (ABNORMAL) Comprehensive metabolic panel (10/01/2024 11:28 AM EST) Sodium 141 133 - 145 mmol/L LAB CHEMISTRY METHOD 10/01/2024 3:39 PM [facility] Potassium 4.5 3.5 - 5.5 mmol/L LAB CHEMISTRY METHOD 10/01/2024 3:39 PM [facility] Chloride 106 96 - 110 mmol/L LAB CHEMISTRY METHOD 10/01/2024 3:39 PM [facility] CO2 27 21 - 32 mmol/L LAB CHEMISTRY METHOD 10/01/2024 3:39 PM [facility] Anion Gap 8 3 - 11 LAB CHEMISTRY METHOD 10/01/2024 3:39 PM [facility] Glucose 82 70 - 100 mg/dL LAB CHEMISTRY METHOD 10/01/2024 3:39 PM [facility] BUN 18 5 - 25 mg/dL LAB CHEMISTRY METHOD 10/01/2024 3:39 PM [facility] Creatinine 0.91 0.70 - 1.30 mg/dL LAB CHEMISTRY METHOD 10/01/2024 3:39 PM [facility] eGFR 104 >=60 mL/min/1. 73m2 LAB CHEMISTRY METHOD 10/01/2024 3:39 PM [facility] Comment:Calculation based on the??Chronic Kidney Disease Epidemiology Collaboration (CKD-EPI) equation refit??without adjustment for race. BUN/Creatinine Ratio 19.8 LAB CHEMISTRY METHOD 10/01/2024 3:39 PM [facility] Calcium 9.8 8.5 - 10.5 mg/dL LAB CHEMISTRY METHOD 10/01/2024 3:39 PM [facility] AST (SGOT) 25 10 - 42 unit/L LAB CHEMISTRY METHOD 10/01/2024 3:39 PM [facility] ALT (SGPT) 62(H) 10 - 60 unit/L LAB CHEMISTRY METHOD 10/01/2024 3:39 PM [facility] Alkaline Phosphatase 64 42 - 121 unit/L LAB CHEMISTRY METHOD 10/01/2024 3:39 PM [facility] Total Protein 7.5 6.0 - 8.0 g/dL LAB CHEMISTRY METHOD 10/01/2024 3:39 PM [facility] Albumin 4.4 3.2 - 5.0 g/dL LAB CHEMISTRY METHOD 10/01/2024 3:39 PM [facility] Total Bilirubin 0.6 0.0 - 1.4 mg/dL LAB CHEMISTRY METHOD 10/01/2024 3:39 PM [facility] Blood Venous blood specimen / Unknown Venipuncture / Unknown 10/01/2024 11:28 AM EST 10/01/2024 11:28 AM EST C Ed Landeros MD LAB BLOOD ORDERABLES Final Res ult [facility] [address] [place] [address], [place] [phone] * Colonoscopy (09/14/2020) Colonoscopy Abstracted, no interpretation Anatomical Region Laterality Modality Other us Historical Provider HEALTH MAINTENANCE Final Result from Last 3 Months or Most Recently Relevant to Health Maintenance Insurance [place] Advance Directives Documents on File Type Date Recorded Patient Finance Director Expl anation Health Care Decision (hx) 04/08/2024 CYNTHIA FORTUNE DIRECTIVE Care Teams Baby Nurse Relationship Specialty Start Date End Date Conor Landeros MD [address] [place] [id number] PCP - General Internal Medicine 04/20/21
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
--- OUTSIDE RECORDS SUMMARY | 2024-12-23 12:02 | XMS_ITS | Data Portability ---
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 me. He stopped aspirin in the context of rectal bleeding and later elected to stop Plavix for an epidural steroid injection. The episode of right sided sensory changes with left foot clumsiness may be migraine but are concerning for TIA and therefore I recommend secondary stroke prophylaxis with aspirin as well as a high intensity statin. It has been more than 21 days and therefore it is not necessary to resume dual antiplatelet therapy. I defer management to primary care. He has had a 10-second episode of transient right face change, this time without headache. I am less certain about this episode though it did occur while he was off of antiplatelet therapy. Migraines have been reasonably well controlled on Emgality monthly autoinjector which has been approved until further notice. He does have some end of month breakthrough. I have counseled him that he should not use triptans in the context of possible TIA. We discussed follow-up options, including a 3 or 6-month follow-up to check in and see how things are going, he elected an 11-month follow-up and to call as needed in the interim. PLAN: Sylvester Salvador March 03, 2024 >>>>>>>>>>>FOR TIA: The episode of 1 minute hemisensory change on the right side with transient foot clumsiness followed by right-sided headache October 01, 2023, reported 10/03 Please discuss stroke prevention medication with PCP; >>>>>>>>>>>>>>>>Fo r migraine prevention: CONTINUE Emgality subcutaneous injection, every month: For musculoskeletal component of your headaches CONTINUE physical therapy and home exercises from physical therapy Amanda Licea PT >>>>>>>>For the nocturnal headaches awakening you at night and the more severe headaches in the morning Please reconsider working with [facility] [place] Follow up in 3 months, herve Not available 03/03/2024 15:37:21 Plan of Treatment Reminders Order Date Submit Date Provider Last Modified By Organization Details Last Modified Time Details Appointments None recorded. Lab None recorded. Referral None recorded. Procedures None recorded. Surgeries None recorded. Imaging MRI, brain, w/o contrast - 1 minute hemisensory change with clumsiness on the right side followed by right-sided headache 2 days ago on October 01, 20232023 024 amos 1 [facility] ([facility]), [address] [place] [address], [place], [id number], 4 11:10:57 Medication Orders Emgality Pen 120 mg/mL subcutaneou s pen injector 2023 024 [id number] [address] [place], [place], [id number], 4 15:37:56 Emgality Pen 120 mg/mL subcutaneou s pen injector 2023 024 jeremiah [facility] #[id number], [address] [place], [place], [id number], 4 17:00:28 Emgality Pen 120 mg/mL subcutaneou s pen injector 2023 024 herve [id number], [address] [place], [place], [id number], 4 09:01:16 Emgality Pen 120 mg/mL subcutaneou s pen injector 2023 024 herve [id number], [address] [place], [place], [id number], 4 08:23:03 Patient TargetsNo targets recorded. Patient Instructions Encounter Date Encounter Id Patient Instructions Last Modified By Organization Details Last Modified Time 09/05/2023 [id number] PREVIOUS DISCUSSIONS: REVIEW of rationale for CGRP inhibitor trial: August 15, 2023: We went over Emgality and rationale for choosing Emgality as she has constipation at baseline and Benita is not on his formulary, further that he has bipolar so we would not consider antidepressant and for the same reason is already on antiseizure medications. Therefore, I anticipate his insurance will cover Emgality if he finds it helpful. We also went over his brain MRI and the T2 flair hyperintensity noted on the study, this could occur in the context of migraines and is okay to continue with sumatriptan. REVIEW of August 13, 2023 consultation discussion Worsening of baseline headaches in the context of increased stressors. I believe the headaches may be multifactorial as he has a baseline of 2-3 periodic headaches per week. He has nocturnal headaches with morning worsening. He reports he had a brain MRI on July 18 2023 through [facility] which he says was normal. We will request records. He actually has a 4 inch stack of CDs from prior images, amongst these, head CT from [facility] from 2016 and a MRI thoracic spine (and L-spine) from [place] from February 03, 2018. I will also request these records. (Reports that he recently saw a neurosurgical provider in [place] although this seems to have been for the low back pain and leg numbness. He is also under the care of a injectionist for the low back). Since we discussed strategies regarding migraines, he has had mixed messages regarding the use of Tylenol. We discussed rebound headache and using it infrequently for bad headaches rather than regularly, we discussed the musculoskeletal component and I have referred him to physical therapy for myofascial release. Given the nocturnal awakening and the worsening migraines in the mornings, I also suggested he see sleep medicine and gave him a referral to sleep medicine of [facility]. He felt ? w eird? and ? o ff? with his initial trial of sumatriptan hand. He is not exactly clear how he took it, whether he took for 50 mg tablets in a 24-hour period or less but said he only had enough for 5 days. Suggested we may be able to take over breakthrough migraine medication in the future and emphasized using it on an as-needed basis and not regularly 5 days in a row, similar to Tylenol instead, we will try something else for prevention CGRP inhibitor as he is already on lamotrigine and gabapentin and so I would not consider an additional antiepileptic medication. He has a history of bipolar and so therefore I would not consider antidepressant. He does have constipation at baseline and so I will hold off on a trial of Aimovig. The front office is checked his formulary and it appears that Benita is not covered by his insurance and so we will plan a trial of Emgality. Discussion across issues of diagnoses and management and same day associated chart review and management greater than 50% greater than 45 minutes [email or web address] Not available 09/05/2023 18:07:58 10/03/2023 [id number] PREVIOUS DISCUSSIONS: September 05, 2023: He has had benefit from Emgality No. 1 loading dose (220 mg) on August 15, 2023 noticing reduction of headaches after the first week. He has continued to have some breakthrough migraine including nocturnal migraine, associated with tinnitus, but improved from prior, and in particular improved while driving. He has not had any side effects from Emgality and would like to continue. We will ask for prior authorization. Next injection is due on September 14, 2023. He describes visual changes ? s pots? are associated with migraine and may be migraine aura. 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 He is also planning to see ophthalmology. He has started physical therapy for the myofascial component and started in home exercise plan and has found this helpful. He has postponed sleep medicine consultation: I had referred him for nocturnal headaches and morning headaches as he is currently being evaluated by GI and sent to ENT for fiberoptic study of a finding below the epiglottis near the larynx. I have asked him to discuss this evaluation and these findings with sleep medicine when he does see them September 26. We will plan follow-up in about 1 month to make sure Emgality was approved, to check how things are going after his fiberoptic study and sleep medicine consult REVIEW of rationale for CGRP inhibitor trial: August 15, 2023: We went over Emgality and rationale for choosing Emgality as she has constipation at baseline and Benita is not on his formulary, further that he has bipolar so we would not consider antidepressant and for the same reason is already on antiseizure medications. Therefore, I anticipate his insurance will cover Emgality if he finds it helpful. We also went over his brain MRI and the T2 flair hyperintensity noted on the study, this could occur in the context of migraines and is okay to continue with sumatriptan. REVIEW of August 13, 2023 consultation discussion Worsening of baseline headaches in the context of increased stressors. I believe the headaches may be multifactorial as he has a baseline of 2-3 periodic headaches per week. He has nocturnal headaches with morning worsening. He reports he had a brain MRI on July 18 2023 through [facility] which he says was normal. We will request records. He actually has a 4 inch stack of CDs from prior images, amongst these, head CT from [facility] from 2015 and a MRI thoracic spine (and L-spine) from [place] from February 03, 2018. I will also request these records. (Reports that he recently saw a neurosurgical provider in [place] although this seems to have been for the low back pain and leg numbness. He is also under the care of a injectionist for the low back). Since we discussed strategies regarding migraines, he has had mixed messages regarding the use of Tylenol. We discussed rebound headache and using it infrequently for bad headaches rather than regularly, we discussed the musculoskeletal component and I have referred him to physical therapy for myofascial release. Given the nocturnal awakening and the worsening migraines in the mornings, I also suggested he see sleep medicine and gave him a referral to sleep medicine of [facility]. He felt ? w eird? and ? o ff? with his initial trial of sumatriptan hand. He is not exactly clear how he took it, whether he took for 50 mg tablets in a 24-hour period or less but said he only had enough for 5 days. Suggested we may be able to take over breakthrough migraine medication in the future and emphasized using it on an as-needed basis and not regularly 5 days in a row, similar to Tylenol instead, we will try something else for prevention CGRP inhibitor as he is already on lamotrigine and gabapentin and so I would not consider an additional antiepileptic medication. He has a history of bipolar and so therefore I would not consider antidepressant. He does have constipation at baseline and so I will hold off on a trial of Aimovig. The front office is checked his formulary and it appears that Benita is not covered by his insurance and so we will plan a trial of Emgality. Discussion across issues of diagnoses and management and same day associated chart review and management greater than 50% greater than 45 minutes [email or web address] Not available 10/03/2023 10:06:24 10/15/2023 [id number] PREVIOUS DISCUSSIONS: 10/03/23 A/P You said this (sleep study) was rescheduled for September 26, 2022 as it conflicted with upcoming fiberoptic study with ENT. As I was not aware of your GI evaluation for difficulty swallowing and there is concern for an abnormality or possibly a mass near the epiglottis and larynx, please discuss this finding and any subsequent studies results that you are aware of with sleep medicine when you do see them - 10/15/23 update: He reported symptoms were resolved after he was treated for thrush September 05, 2023: He has had benefit from Emgality No. 1 loading dose (220 mg) on August 15, 2023 noticing reduction of headaches after the first week. He has continued to have some breakthrough migraine including nocturnal migraine, associated with tinnitus, but improved from prior, and in particular improved while driving. He has not had any side effects from Emgality and would like to continue. We will ask for prior authorization. Next injection is due on September 14, 2023. He describes visual changes ? s pots? are associated with migraine and may be migraine aura. 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 He is also planning to see ophthalmology. He has started physical therapy for the myofascial component and started in home exercise plan and has found this helpful. He has postponed sleep medicine consultation: I had referred him for nocturnal headaches and morning headaches as he is currently being evaluated by GI and sent to ENT for fiberoptic study of a finding below the epiglottis near the larynx. I have asked him to discuss this evaluation and these findings with sleep medicine when he does see them September 26. We will plan follow-up in about 1 month to make sure Emgality was approved, to check how things are going after his fiberoptic study and sleep medicine consult REVIEW of rationale for CGRP inhibitor trial: August 15, 2023: We went over Emgality and rationale for choosing Emgality as she has constipation at baseline and Benita is not on his formulary, further that he has bipolar so we would not consider antidepressant and for the same reason is already on antiseizure medications. Therefore, I anticipate his insurance will cover Emgality if he finds it helpful. We also went over his brain MRI and the T2 flair hyperintensity noted on the study, this could occur in the context of migraines and is okay to continue with sumatriptan. REVIEW of August 13, 2023 consultation discussion Worsening of baseline headaches in the context of increased stressors. I believe the headaches may be multifactorial as he has a baseline of 2-3 periodic headaches per week. He has nocturnal headaches with morning worsening. He reports he had a brain MRI on July 18 2023 through [facility] which he says was normal. We will request records. He actually has a 4 inch stack of CDs from prior images, amongst these, head CT from [facility] from 2016 and a MRI thoracic spine (and L-spine) from [place] from February 03, 2018. I will also request these records. (Reports that he recently saw a neurosurgical provider in [place] although this seems to have been for the low back pain and leg numbness. He is also under the care of a injectionist for the low back). Since we discussed strategies regarding migraines, he has had mixed messages regarding the use of Tylenol. We discussed rebound headache and using it infrequently for bad headaches rather than regularly, we discussed the musculoskeletal component and I have referred him to physical therapy for myofascial release. Given the nocturnal awakening and the worsening migraines in the mornings, I also suggested he see sleep medicine and gave him a referral to sleep medicine of [facility]. He felt ? w eird? and ? o ff? with his initial trial of sumatriptan hand. He is not exactly clear how he took it, whether he took for 50 mg tablets in a 24-hour period or less but said he only had enough for 5 days. Suggested we may be able to take over breakthrough migraine medication in the future and emphasized using it on an as-needed basis and not regularly 5 days in a row, similar to Tylenol instead, we will try something else for prevention CGRP inhibitor as he is already on lamotrigine and gabapentin and so I would not consider an additional antiepileptic medication. He has a history of bipolar and so therefore I would not consider antidepressant. He does have constipation at baseline and so I will hold off on a trial of Aimovig. The front office is checked his formulary and it appears that Benita is not covered by his insurance and so we will plan a trial of Emgality. Discussion across issues of diagnoses and management and same day associated chart review and management greater than 50% greater than 45 minutes [email or web address] Not available 10/15/2023 16:23:33 11/12/2023 [id number] PREVIOUS DISCUSSIONS: October 15, 2023: He did go to the emergency department on October 03, 2 days after the transient episode of hemisensory change with clumsiness on the right. He has not had recurrent episode per se however he continues to get episodes of clumsiness on the right which he says began in June 2023 when he began getting worsening of headaches. He reports head CT was negative in the emergency department and has been started on aspirin and Plavix. He was contacted by [facility] neurologist recommending MRI brain and follow-up but did not schedule these as he had follow-up here. I will go ahead with brain MRI and will ask for [facility] emergency department records. We will again plan short-term follow-up to go over the ED results and brain imaging. Headaches have improved on Emgality 120 mg/mL monthly autoinjector, there are some minor headaches. We can address breakthrough migraine at a future visit after addressing the issues above. See impression and plan for October 03, 2023 discussion with concern for possible TIA October 01, 2023 10/03/23 A/P You said this (sleep study) was rescheduled for September 26, 2022 as it conflicted with upcoming fiberoptic study with ENT. As I was not aware of your GI evaluation for difficulty swallowing and there is concern for an abnormality or possibly a mass near the epiglottis and larynx, please discuss this finding and any subsequent studies results that you are aware of with sleep medicine when you do see them - 10/15/23 update: He reported symptoms were resolved after he was treated for thrush September 05, 2023: He has had benefit from Emgality No. 1 loading dose (220 mg) on August 15, 2023 noticing reduction of headaches after the first week. He has continued to have some breakthrough migraine including nocturnal migraine, associated with tinnitus, but improved from prior, and in particular improved while driving. He has not had any side effects from Emgality and would like to continue. We will ask for prior authorization. Next injection is due on September 14, 2023. He describes visual changes ? s pots? are associated with migraine and may be migraine aura. 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 He is also planning to see ophthalmology. He has started physical therapy for the myofascial component and started in home exercise plan and has found this helpful. He has postponed sleep medicine consultation: I had referred him for nocturnal headaches and morning headaches as he is currently being evaluated by GI and sent to ENT for fiberoptic study of a finding below the epiglottis near the larynx. I have asked him to discuss this evaluation and these findings with sleep medicine when he does see them September 26. We will plan follow-up in about 1 month to make sure Emgality was approved, to check how things are going after his fiberoptic study and sleep medicine consult REVIEW of rationale for CGRP inhibitor trial: August 15, 2023: We went over Emgality and rationale for choosing Emgality as she has constipation at baseline and Benita is not on his formulary, further that he has bipolar so we would not consider antidepressant and for the same reason is already on antiseizure medications. Therefore, I anticipate his insurance will cover Emgality if he finds it helpful. We also went over his brain MRI and the T2 flair hyperintensity noted on the study, this could occur in the context of migraines and is okay to continue with sumatriptan. REVIEW of August 13, 2023 consultation discussion Worsening of baseline headaches in the context of increased stressors. I believe the headaches may be multifactorial as he has a baseline of 2-3 periodic headaches per week. He has nocturnal headaches with morning worsening. He reports he had a brain MRI on July 18 2023 through [facility] which he says was normal. We will request records. He actually has a 4 inch stack of CDs from prior images, amongst these, head CT from [facility] from 2015 and a MRI thoracic spine (and L-spine) from [place] from February 03, 2018. I will also request these records. (Reports that he recently saw a neurosurgical provider in [place] although this seems to have been for the low back pain and leg numbness. He is also under the care of a injectionist for the low back). Since we discussed strategies regarding migraines, he has had mixed messages regarding the use of Tylenol. We discussed rebound headache and using it infrequently for bad headaches rather than regularly, we discussed the musculoskeletal component and I have referred him to physical therapy for myofascial release. Given the nocturnal awakening and the worsening migraines in the mornings, I also suggested he see sleep medicine and gave him a referral to sleep medicine of [facility]. He felt ? w eird? and ? o ff? with his initial trial of sumatriptan hand. He is not exactly clear how he took it, whether he took for 50 mg tablets in a 24-hour period or less but said he only had enough for 5 days. Suggested we may be able to take over breakthrough migraine medication in the future and emphasized using it on an as-needed basis and not regularly 5 days in a row, similar to Tylenol instead, we will try something else for prevention CGRP inhibitor as he is already on lamotrigine and gabapentin and so I would not consider an additional antiepileptic medication. He has a history of bipolar and so therefore I would not consider antidepressant. He does have constipation at baseline and so I will hold off on a trial of Aimovig. The front office is checked his formulary and it appears that Ajovy is not covered by his insurance and so we will plan a trial of Emgality. Discussion across issues of diagnoses and management and same day associated chart review and management greater than 50% greater than 45 minutes [email or web address] Not available 11/12/2023 17:05:39 03/03/2024 [id number] PREVIOUS DISCUSSIONS: >>>>>>>>>>>>>>October 15, 2023: He did go to the emergency department on October 03, 2 days after the transient episode of hemisensory change with clumsiness on the right. He has not had recurrent episode per se however he continues to get episodes of clumsiness on the right which he says began in June 2023 when he began getting worsening of headaches. He reports head CT was negative in the emergency department and has been started on aspirin and Plavix. He was contacted by [facility] neurologist recommending MRI brain and follow-up but did not schedule these as he had follow-up here. I will go ahead with brain MRI and will ask for [facility] emergency department records. We will again plan short-term follow-up to go over the ED results and brain imaging. Headaches have improved on Emgality 120 mg/mL monthly autoinjector, there are some minor headaches. We can address breakthrough migraine at a future visit after addressing the issues above. See impression and plan for October 03, 2023 discussion with concern for possible TIA October 01, 2023 10/03/23 A/P You said this (sleep study) was rescheduled for September 26, 2022 as it conflicted with upcoming fiberoptic study with ENT. As I was not aware of your GI evaluation for difficulty swallowing and there is concern for an abnormality or possibly a mass near the epiglottis and larynx, please discuss this finding and any subsequent studies results that you are aware of with sleep medicine when you do see them - 10/15/23 update: He reported symptoms were resolved after he was treated for thrush >>>>>>>>>>>>> October 03, 2023 concern for possible TIA October 01, 2023: He has had an episode of right sided sensory change involving face arm and leg with possible weakness (car deceleration) lasting about 1 minute [address] that was followed by focal right sided headache. He is concerned that this may have been a mini stroke. I cannot exclude a transient ischemic attack and I have asked him to go to the emergency room for evaluation. I also counseled him that if he has recurrent event he should go to the emergency room right away. Risk factors for ischemia include current smoking and per his report today, qualifies for some type of device to improve sleep quality. Differential includes migraine, the reason for his initial consultation with us on August 13 2023. >>>>>>>>>>>>>Nila 2023: He has had benefit from Emgality No. 1 loading dose (220 mg) on August 15, 2023 noticing reduction of headaches after the first week. He has continued to have some breakthrough migraine including nocturnal migraine, associated with tinnitus, but improved from prior, and in particular improved while driving. He has not had any side effects from Emgality and would like to continue. We will ask for prior authorization. Next injection is due on September 14, 2023. He describes visual changes ? s pots? are associated with migraine and may be migraine aura. 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 He is also planning to see ophthalmology. He has started physical therapy for the myofascial component and started in home exercise plan and has found this helpful. He has postponed sleep medicine consultation: I had referred him for nocturnal headaches and morning headaches as he is currently being evaluated by GI and sent to ENT for fiberoptic study of a finding below the epiglottis near the larynx. I have asked him to discuss this evaluation and these findings with sleep medicine when he does see them September 26. >>>>>>>>>>>August 15, 2023 rationale for CGRP inhibitor trial: : We went over Emgality and rationale for choosing Emgality as she has constipation at baseline and Benita is not on his formulary, further that he has bipolar so we would not consider antidepressant and for the same reason is already on antiseizure medications. Therefore, I anticipate his insurance will cover Emgality if he finds it helpful. We also went over his brain MRI and the T2 flair hyperintensity noted on the study, this could occur in the context of migraines and is okay to continue with sumatriptan. >>>>>>>>>>>August 13, 2023 consultation discussion Worsening of baseline headaches in the context of increased stressors. I believe the headaches may be multifactorial as he has a baseline of 2-3 periodic headaches per week. He has nocturnal headaches with morning worsening. He reports he had a brain MRI on July 18 2023 through [facility] which he says was normal. We will request records. He actually has a 4 inch stack of CDs from prior images, amongst these, head CT from [facility] from 2015 and a MRI thoracic spine (and L-spine) from [place] from February 03, 2018. I will also request these records. (Reports that he recently saw a neurosurgical provider in [place] although this seems to have been for the low back pain and leg numbness. He is also under the care of a injectionist for the low back). Since we discussed strategies regarding migraines, he has had mixed messages regarding the use of Tylenol. We discussed rebound headache and using it infrequently for bad headaches rather than regularly, we discussed the musculoskeletal component and I have referred him to physical therapy for myofascial release. Given the nocturnal awakening and the worsening migraines in the mornings, I also suggested he see sleep medicine and gave him a referral to sleep medicine of [facility]. He felt ? w eird? and ? o ff? with his initial trial of sumatriptan hand. He is not exactly clear how he took it, whether he took for 50 mg tablets in a 24-hour period or less but said he only had enough for 5 days. Suggested we may be able to take over breakthrough migraine medication in the future and emphasized using it on an as-needed basis and not regularly 5 days in a row, similar to Tylenol instead, we will try something else for prevention CGRP inhibitor as he is already on lamotrigine and gabapentin and so I would not consider an additional antiepileptic medication. He has a history of bipolar and so therefore I would not consider antidepressant. He does have constipation at baseline and so I will hold off on a trial of Aimovig. The front office is checked his formulary and it appears that Benita is not covered by his insurance and so we will plan a trial of Emgality. Discussion across issues of diagnoses and management and same day associated chart review and management greater than 50% greater than 45 minutes [email or web address] Not available 03/03/2024 15:07:32 Reason for Referral None Reported. Results Created Date Observation Date Name Description Value Unit Range Abnormal Flag Note LastModifiedBy Organization Detail LastModifiedTime 08/13/19 24 07/18/2023 MRI, brain + brain stem, w/wo contr ast No observ ation record ed. [address] [facility] [address] [place] [address] [place], [address], 08/14/2023 12:53:26 09/03/19 24 07/15/2023 CT, head + brain , w/o contr ast No observ ation record ed. [address] ([facility]) [address] [facility], [place], [address], 09/05/2023 09:18:27 10/21/19 24 10/19/2023 MRI, brain + brain stem, w/o contr ast [place] [facility] Access ion Number : [id number] Lui abreu Name: Shraddha Salvador y Medica l Record Number : [id number] Date of : 1975 Date of Exam: 2023 Referr ing Physic leonard: Stacy Gaona michael Neurol ogy [address] [facility] [address] [place] [address] Exam: MR Brain (C-) CPT 86210 Room Descri ption: Jona Siem Espr 1.5 MR Brain (C-) CPT 60775 INDICA TION: Acute cerebr ovascu lar insuff icienc y; 1 minute hemise nsory change with clumsi ness on the right side follow ed by right - sided headac he on 2023 Acute cerebr ovascu lar insuff icienc y; 1 minute hemise nsory change with clumsi ness on the right side follow ed by right - sided headac he on [address] Depart ment Protoc ol TECHNI QUE: MRI of the brain was perfor med withou t contra st utiliz ing sagitt al T1, axial T2, axial FLAIR, axial GRE, and axial DWI sequen gregory. COMPAR TERRI: Brain MRI 023. FINDIN GS: BRAIN and EXTRA- AXIAL SPACES : The ventri cles and sulci are normal in size. There is an unchan ged puncta te FLAIR hyperi ntense focus in the left fronta l lobe white matter on image 7 series 4. Otherw ise, there is no signal abnorm ality in the brain and there is no eviden ce of restri cted diffus ion to sugges t acute infarc tion. The brains tem and cerebe llum are normal . There is no hemorr titus, midlin e shift, or mass effect . There is no extra- axial collec tion. Flow voids are preser charity in the domina nt intrac ranial vessel s. EXTRAC RANIAL SOFT TISSUE S: Orbits are unrema rkable . Parana benjamin sinuse s and mastoi ds are unrema rkable . BONES: Marrow signal is preser charity. IMPRES FAY: 1. No acute/ subacu te infarc t, mass, hemorr titus, or other acute intrac ranial abnorm ality. 2. Unchan ged solita ry T2/FLA IR hyperi ntense focus in the left fronta l lobe white matter , nonspe cific and of uncert ain signif icance . Electr onical ly Signed By: Magalys [email or web address] [facility] ([facility]) [address], [place], [address], 10/30/2023 18:59:00 10/26/19 24 10/19/2023 MRI, brain , w/o contr ast No observ ation record ed. [email or web address] [facility] [address] [facility], [place], [address], 10/30/2023 18:59:15 Result Notes None recorded. Procedures Surgical History Date Name Laterality Status Provider Name and Address Organization Details Recorded Time 03/03/2024 DATA REVIEW completed Kobe Villaseñor MD [address] [place] [address] B, [place], [address], [facility] 03/03/2024 15:00:37 11/12/2023 DATA REVIEW completed STACY GAONA PA-C [address] [place] [address] B, [place], [address], [facility] 11/12/2023 17:01:52 10/15/2023 DATA REVIEW completed STACY GAONA PA-C [address] [place] [address] B, [place], [address], [facility] 10/15/2023 10:49:35 10/03/2023 DATA REVIEW completed STACY GAONA PA-C [address] [place] [address] B, [place], [address], [facility] 10/03/2023 09:08:42 09/05/2023 DATA REVIEW completed STACY GAONA PA-C [address] [place] [address] B, [place], [address], [facility] 09/05/2023 17:55:54 08/15/2023 DATA REVIEW completed CULLEN [place] [facility], [address], [facility] 08/15/2023 13:09:49 08/13/2023 DATA REVIEW completed CULLEN [place] [facility], [address], [facility] 08/13/2023 12:20:46 Imaging Results Imaging Date Name Status LastModified by Organiz ation Details LastModified Time 07/18/2023 MRI, brain + brain stem, w/wo contrast completed [address] [place], [address], 08/14/2023 12:53:26 07/15/2023 CT, head + brain, w/o contrast completed [email or web address] [facility] ([facility]) [address] [place], [address], 09/05/2023 09:18:27 10/19/2023 MRI, brain + brain stem, w/o contrast completed [address] ([facility]) [address] [place], [address], 10/30/2023 18:59:00 10/19/2023 MRI, brain, w/o contrast completed [address] [place], [address], 10/30/2023 18:59:15 Procedure Notes None recorded. Medical Equipment None Reported. Allergies Allergen ID Allergen Name Allergen Category Reaction Reaction Severity Criticality Documentation Date Start Date Code Code System Note Provider Name and Address Organization Details Recorded Time 3536 minocycli ne medicatio n Not available Not available Not available 08/13/2023 6980 RxNorm Zeny Worthingt on [facility] 4 10:03:04 3537 doxycycli ne Not available Not available Not available Not available 08/13/2023 3640 RxNorm Zeny Worthingt on [facility] 4 10:03:11 3538 rifampin medicatio n Not available Not available Not available 08/13/2023 9384 RxNorm Zeny Worthingt on [facility] 4 10:03:30 3539 hydroxych loroquine medicatio n Not available Not available Not available 08/13/2023 5521 RxNorm Zeny Worthingt on [facility] 4 10:07:33 3540 Non-stero idal anti-infl ammatory agent (product) medicatio n Not available Not available Not available 08/13/2023 37834 005 SNOMED Zeny Worthingt on [facility] 4 10:07:45 Medications Name Sig Start Date Stop Date Status Note LastModified by Organization Details LastModified Time cyclobenzapr ine 10 mg tablet TAKE 1 TABLET BY MOUTH THREE TIMES DAILY NEEDED FOR MUSCLE SPASMS active Not Available Not Available No t Available clotrimazole 10 mg aníbal DISSOLVE 1 LOZENGE BY MOUTH FIVE TIMES DAILY DIRECTED active Not Available Not Available Not Available lamotrigine 150 mg tablet TAKE 1 TABLET BY MOUTH EVERY DAY active Not Available Not Available No t Available atorvastatin 80 mg tablet TAKE 1 TABLET BY MOUTH EVERYDAY AT BEDTIME active Not Available Not Available No t Available nystatin 100,000 unit/mL oral suspension SHAKE LIQUID AND TAKE 4 ML BY MOUTH FOUR TIMES DAILY active Not Available Not Available No t Available lamotrigine 200 mg tablet TAKE 1 TABLET BY MOUTH EVERY DAY active Not Available Not Available No t Available trazodone 50 mg tablet TAKE 1-2 TABLETS BY MOUTH EVERY NIGHT AT BEDTIME NEEDED active Not Available Not Available No t Available prednisone 20 mg tablet TAKE 3 TABLETS BY MOUTH DAILY active Not Available Not Available Not Available clonazepam 0.5 mg tablet TAKE 1 TABLET BY MOUTH THREE TIMES DAILY NEEDED FOR ANXIETY OR PANIC active Not Available Not Available No t Available sumatriptan 50 mg tablet active Not Available Not Available Not Available clopidogrel 75 mg tablet TAKE 1 TABLET BY MOUTH DAILY active Not Available Not Available Not Available omeprazole 40 mg capsule,trey yed release TAKE 1 CAPSULE BY MOUTH DAILY active Not Available Not Available Not Available aspirin 81 mg tablet,delay ed release TAKE 1 TABLET BY MOUTH DAILY active Not Available Not Available Not Available triamcinolon e acetonide 0.1 % topical cream APPLY TO AFFECTED AREA 1-2 TIMES DAILY NEEDED. active Not Available Not Available N ot Available hydromorphon e 2 mg tablet TAKE 1 TABLET BY MOUTH EVERY 6 HOURS FOR 10 DAYS NEEDED FOR POST OPERATIVE PAIN active Not Available Not Available No t Available famotidine 20 mg tablet TAKE 1 TABLET BY MOUTH TWICE A DAY active Not Available Not Available No t Available tamsulosin 0.4 mg capsule TAKE 1 CAPSULE BY MOUTH EVERY DAY 30 MINUTES AFTER THE SAME MEAL active Not Available Not Available No t Available trazodone 100 mg tablet TAKE 2 TABLETS BY MOUTH EVERY DAY AT BEDTIME active Not Available Not Available No t Available baclofen 10 mg tablet TAKE 1 TABLET BY MOUTH THREE TIMES A DAY active Not Available Not Available Not Available pantoprazole 40 mg tablet,delay ed release active Not Available Not Available N ot Available gabapentin 300 mg capsule TAKE 1 CAPSULE BY MOUTH THREE TIMES A DAY active Not Available Not Available Not Available folic acid 1 mg tablet TAKE 1 TABLET BY MOUTH 1 TIME EACH DAY. active Not Available Not Available No t Available gabapentin 100 mg capsule TAKE 2 CAPSULES BY MOUTH AT BEDTIME active Not Available Not Available No t Available ketoconazole 2 % topical cream APPLY TWICE A DAY NEEDED FOR RASH active Not Available Not Available No t Available fluoxetine 20 mg capsule TAKE 1 CAPSULE BY MOUTH 1 TIME EACH DAY. active Not Available Not Available No t Available fluticasone propionate 50 mcg/actuatio n nasal spray,suspen fay SHAKE LIQUID AND USE 1 SPRAY IN EACH NOSTRIL 1 TO 2 TIMES A DAY active Not Available Not Available No t Available lamotrigine 100 mg tablet TAKE 1 TABLET FOR 7 DAYS AND TAPER TO HALF TABLET DAILY active Not Available Not Available No t Available oxycodone 5 mg tablet TAKE 1 TABLET BY MOUTH EVERY 6 HOURS FOR 7 DAYS NEEDED FOR POST OPERATIVE PAIN active Not Available Not Available No t Available nicotine (polacrilex) 4 mg buccal lozenge DISSOLVE 1 LOZENGE BY MOUTH EVERY 2 HOURS NEEDED active Not Available Not Available No t Available rosuvastatin 10 mg tablet active Not Available Not Available Not Available topiramate 50 mg tablet TAKE 1 TABLET BY MOUTH EVERY DAY active Not Available Not Available No t Available acamprosate 333 mg tablet,delay ed release TAKE 2 TABLETS BY MOUTH THREE TIMES DAILY active Not Available Not Available Not Available duloxetine 30 mg capsule,trey yed release TAKE 1 CAPSULE BY MOUTH EVERY DAY IN THE MORNING FOR DEPRESSION active Not Available Not Available N ot Available duloxetine 60 mg capsule,trey yed release TAKE 1 CAPSULE BY MOUTH EVERY DAY IN THE MORNING FOR MOOD OR FOCUS active Not Available Not Available No t Available chlorhexidin e gluconate 0.12 % mouthwash active Not Available Not Available No t Available buprenorphin e 8 mg-naloxone 2 mg sublingual film DISSOLVE 2 FILMS UNDER THE TOUNGE EVERY DAY FOR 28 DAYS active Not Available Not Available Not Available Emgality Pen 120 mg/mL subcutaneous pen injector Inject 1 mL every month by subcutaneou s route for 30 days, for migraine prevention. 2023 active Not Available Not Available Not Avai lable QuickVue At-Home COVID-19 Test kit TEST DIRECTED TODAY active Not Available Not Available No t Available Vitals None Recorded Social History Question Answer Notes LastModified by Organizat ion Details LastModified Time Tobacco Smoking Status Current Every Day Smoker Zeny bowens [place] [facility] 08/13/2023 10:08:49 What Is Your Level Of Caffeine Consumption? Moderate 2 Information not available 08/13/2023 What Is The Highest Grade Or Level Of School You Have Completed Or The Highest Degree You Have Received? [id number] Information not available 08/13/2023 Which Of Your Hands Is Dominant? Right Information not available 08/13/2023 What Is Your Relationship Status? Single Information not available 08/13/2023 How Much Tobacco Do You Smoke? 0.5 PPD Information not available 08/13/2023 Sex: Unknown Functional Status Question Answer Note LastModified by Organization D etails LastModified Time What is your level of alcohol consumption? None Information not available 08/13/2023 Mental Status None recorded. Family History Relationship Description Onset Age of this Age Resolved Age Notes LastModified by Organization Details LastModified Time Maternal Grandfather Heart disease [email or web address] Not available 09/2023 10:08:16 Medical History Condition Response Bipolar Disorder Y Headaches Y Asthma Y Osteoporosis Y Past Encounters Encounter ID Performer Location Encounter Start Date Encounter Closed Date Diagnosis/Indication Diagnosis SNOMED-CT Code Diagnosis ICD10 Code Diagnosis Note [id number] STACY GAONA PA-C [address] [place] [address] 08/13/2023 08:54:18 08/15/2023 09:25:48 Migraine without aura 77024876 G43.009 Dystonia 37508713 G24.3 Migraine with aura 99356 06 G43.109 [id number] STACY GAONA PA-C [address] [place] [address] 08/15/2023 10:06:44 08/19/2023 16:35:56 Migraine without aura 54563415 G43.009 Migraine with aura 02799 06 G43.109 [place]ston[place] 96054682 G24.3 [id number] STACY ZELDA, PA[address] [place] [address] 09/05/2023 09:45:32 09/09/2023 09:24:57 Migraine without aura 07443568 G43.009 Migraine with aura 48654 06 G43.109 [place] 15279677 G24.3 [id number] [place] [address] 10/03/2023 09:04:39 10/07/2023 11:55:03 Migraine with aura 8006345 G43.109 Migraine without aura 56 234669 G43.009 [place] 19568805 G24.3 [id number] [place] [address] 10/15/2023 10:25:17 10/17/2023 08:26:51 Migraine with aura 6539828 G43.109 Migraine without aura 56 150727 G43.009 [place] 33006505 G24.3 Acute cere brovascular insufficiency 73761661 I67.81 [id number] STACY GAONA PA-C [address] [place] [address] 11/12/2023 13:54:41 11/18/2023 14:35:26 Acute cerebrovascular insufficiency 89923347 I67.81 Migraine with aura 12264 06 G43.109 Migraine without aura 56 279638 G43.009 [place]stonia 34755572 G24.3 [id number] Kobe Villaseñor MD [facility] [address] [place] [address] [place] [address] 03/03/2024 14:16:25 03/03/2024 16:50:21 Acute cerebrovascular insufficiency 45334672 I67.81 Migraine with aura 12741 06 G43.109 Migraine without aura 56 024384 G43.009 [place]ston[place] 32218079 G24.3 Health Concerns Section Related Observation LastModified by Organization Detai ls LastModified Time None Recorded Concern Status LastModified by Organization Details LastModified Time None Recorded Advance Directives Directive None Recorded Payers Encounter Date Sequence Insurance Name Policy Number Policy Muller Covered Member ID Muller Member ID Guarantor Name 09/05/2023 1 [place] [employer] Sylvester R [place] [id number] Sylvester R [place] 09/05/2023 2 [place] [facility] Sylvester R [place] [id number] Sylvester R [place] 10/03/2023 1 [place] [employer] Sylvester R [place] [id number] Sylvester R [place] 10/03/2023 2 [place] Syl[place] R [place] [id number] Sylvester R [place] 10/15/2023 1 [place] [employer] Sylvester R [place] [id number] Sylvester R [place] 10/15/2023 2 [place] [facility] Sylvester R [place] [id number] Sylvester R [place] 11/12/2023 1 [place] [facility] Sylvester R [place] [id number] Sylvester R [place] 11/12/2023 2 [place] [facility] Sylvester R [place] [id number] Sylvester R [place] 03/03/2024 1 [place] [employer] Sylvester R [place] [id number] Sylvester R [place] 03/03/2024 2 [place] [facility] Sylvester R [place] [id number] Sylvester R [place] Notes Date Note Type Note Provider Name and Address Organization Details Recorded Time 09/05/2023 text/html Follow up of headaches. There is also a significant history of back pain and radiating nerve pain. He is unaccompanied. >>>>>>>>>>>>September 05 2023Since August 15, 2023 neurology follow-up, (for loading dose of Emgality, 2 days post initial consult) he reports that he is doing better. He did not notice much change in the first week while he was driving and Was still having headaches at home first but then in the second week, he began to improve. In particular, while driving he typically would get a bad frontal headache that was so bad he would have to rest his head up against the window and now he has been able to tolerate up to half an hour without headache. (He will have a longer drive today so this will be a bit of a test). He has had 2 graft migraines this week, 1 was at night with excessive ringing in his ears. He could not relax, the headache got pretty bad. He has not had any side effect. He started physical therapy and has been twice. He is seeing Amanda Licea who is working on the neck and the back of the head and also his shoulders and posture. He has another appointment today and will be going weekly. He tells me there is 2 things that he did not see last time, once that he sees a lot of spots, they are not always with headaches (sometimes he has a little bit of dizziness upon sitting or standing and will have a spot that occurs) (he did actually mention this at the consultation, also colorblind). He had an appointment with sleep medicine but had to postpone it because it was scheduled at the same time that he has an ENT fiberoptic appointment for a soft tissue mass (he says the words ? l esion? , ? a bnormality? and ? m ass? have been used) that he said was initially found on a barium x-ray on an MRI. He had had the study because he was having some trouble with swallowing a few months back. He said it is located below the epiglottis near the larynx. He will see sleep medicine September 26. We have received additional reports, MRI brain and lumbar spine (we have a report from his 07/18/2023 MRI brain already, we have not received T-spine. However January 2018 MRI of thr L-spine showed mild degenerative disease similar to 2017We have also received July 12, [address] and CTA of the head and neck from [facility] from July 15, 2023 (a 2020 CT of abdomen and pelvis was also sent). >>>>>>>>>>>>August 15 2023Since August 13, 2023 neurology consultation, he has not had significant change. He has called to schedule physical therapy. He forgot to schedule a sleep medicine consult. He is here today for a trial of Emgality. We have received a copy of his July 18, 2023 brain MRI which did not have any evidence of recent ischemia. T2/FLAIR hyperintense focus was noted in the deep white matter of the left frontal lobe. >>>> August 13, 2023 neurology consultation reviewed<<<<He confirms that he is here for headaches but immediately mentions that he just saw a neurosurgeon for back pain nerve pain and weakness but was told that it was nonsurgical. 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 He confirms that he was seen in the past for the pinprick test? . I asked him if this was the more concerning issue as he seems to have several providers addressing this or the headaches and he confirms that the headaches are also concerning. He says that 2 months ago, all of a sudden he began having ringing in the ears accompanied by headache that was so debilitating that he had to go to the emergency room ([facility]) where he was given a cocktail of medications. In the emergency room, he was told that taking Tylenol can contribute to the headaches but that he went to his primary care provider who said it was okay to take it. He was then given prednisone for 5 days (about 2 weeks ago) which helped with the headaches, neck pain and back pain but then everything came back once he stopped. He then went back to taking Tylenol and after a few days the headaches came back so he stopped taking Tylenol again and noticed the headache was getting better. The headaches have been daily, sometimes they wake him up at night, and they tend to be worse in the morning. He does take trazodone for sleep. Lately, he has also been getting dizzy with a little bit of nausea. He gets very tired while driving which is also recent. He had a recent trial of sumatriptan 50 mg, though says it was just a short prescription and he ran out after 5 days. It might of helped the headache a little bit but he also felt weird/off when he took it. His gabapentin was also increased a little bit but it did not help and so he went back down to 100 mg twice daily. Lamotrigine had been increased in June but not recently. He takes 200 mg once daily for bipolar disorder. Historically, he has had 2 or 3 headaches per week for the last couple of years but worse in the last few months prior to the bad headache in June 2023 described above. 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 There is also history of Lyme disease, and so he has had some fatigability since then, he was treated with minocycline, doxycycline rifampin and hydro chloroquine for 8 months resulting in pancreatitis and weight loss (he says he was hospitalized and almost ). He also mentions that he has been getting episodes of a feeling in the left third and fourth toes that lasts for about 3 to 4 minutes at a time. He also has episodes of feeling tired but unable to sleep and having a sweat when he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
--- OUTSIDE RECORDS SUMMARY | 2024-12-23 12:02 | XMS_ITS | Data Portability ---
Author Organization [facility] Address [address] [facility] [address] [place] [address] Care Team Providers Care Paraoptometric Name Role Phone CHANTAL DAWSON Primary Care Provider [phone] Assessment Encounter Date Assessment Date Assessment LastModified by Organization Details LastModified Time 04/26/2016 04/26/2016 Sylvester Salvador is a 40 year old man with complaints of low back pain , right is greater than left which started one year ago. On exam, facet loading is positive on the right. Tenderness is elicited on the right at L4-5 and L5-S1 facet regions. MRI Lumbar spine shows bilateral facet arthrosis at L4-5 and L3-4 levels. Mild discogenic degenerative changes at l3-4 with a mild right lateral foraminal disc herniation contacting the exiting right nerve root without nerve root compression or displacement. I recommend a trial of right facet joint injections at Right L4-5 and L5-S1 levels under fluoroscopic guidance. The risks and benefits of the procedure wer discussed in detail. An appointment has been scheduled for the same. He needs a pile driver operator helper on the day of the procedure. [email or web address] Not available 04/26/2016 11:21:24 05/09/2016 05/09/2016 Sylvester Salvador is a 40 year old man with complaints of low back pain , right is greater than left which started one year ago. On exam, facet loading is positive on the right. Tenderness is elicited on the right at L4-5 and L5-S1 facet regions. MRI Lumbar spine shows bilateral facet arthrosis at L4-5 and L3-4 levels. Mild discogenic degenerative changes at L3-4 with a mild right lateral foraminal disc herniation contacting the exiting right nerve root without nerve root compression or displacement. He is here for a trial of right facet joint injections at Right L4-5 and L5-S1 levels under fluoroscopic guidance. The risks and benefits of the procedure were discussed in detail. He wishes to proceed. He will follow up in four weeks. [email or web address] Not available 05/17/2016 11:19:05 06/04/2016 06/04/2016 Sylvester Salvador is a 40 year old man with complaints of low back pain , right is greater than left which started one year ago. He is here for a follow up after a trial of lumbar facet joint injections under fluoroscopic guidance. He reports 50% pain benefit for two weeks with return of pain. On exam, pain on flexion is present. MRI Lumbar spine shows desiccation of L3-? ? ?L4 is noted and associated mild? ? ?-moderate loss of disc space height. There is disc osteophyte complex with minimal foraminal narrowing.I recommend a trial of Lumbar epidural steroid injection under fluoroscopic guidance. The risks and benefits of the procedure wer discussed in detail. An appointment has been scheduled for the same. He needs a pile driver operator helper on the day of the procedure. [email or web address] Not available 06/04/2016 20:11:33 06/20/2016 06/20/2016 Sylvester Salvador is a 40 year old man with complaints of low back pain , right is greater than left which started one year ago. On exam, pain on flexion is present. MRI Lumbar spine shows desiccation of L3-? ? ?L4 is noted and associated mild? ? ?-moderate loss of disc space height. There is disc osteophyte complex with minimal foraminal narrowing. He is here for a trial of Lumbar epidural steroid injection under fluoroscopic guidance. The risks and benefits of the procedure wer discussed in detail. He wishes to proceed. He will follow up in six weeks to assess the benefits of the injection. [email or web address] Not available 06/24/2016 09:22:26 Plan of Treatment Reminders Order Date Submit Date Provider Last Modified By Organization Details Last Modified Time Details Appointments None record ed. Lab None record ed. Referral None record ed. Procedures None record ed. Surgeries None record ed. Imaging None record ed. Medication Orders None record ed. Patient TargetsNo targets recorded. Patient Instructions Encounter Date Encounter Id Patient Instructions Last Modified By Organization Details Last Modified Time 04/26/2016 [id number] He was advised against bed rest and to continue with his home exercise program [email or web address] Not available 04/26/2016 11:21:46 05/09/2016 [id number] He was advised against bed rest and to continue with his home exercise program [email or web address] Not available 05/17/2016 11:17:48 06/04/2016 [id number] He was advised against bed rest and to continue with his home exercise program [email or web address] Not available 06/04/2016 20:08:40 06/20/2016 [id number] He was advised against bed rest and to continue with his home exercise program [email or web address] Not available 06/24/2016 09:18:44 Reason for Referral None Reported. Problems Name Problem SNOMED Code Status Onset Date Resolution Date Notes Provider Name and Address Organization Details Recorded Time Lumbosacral spondylosis without myelopathy 24432365 Active 2015 Mathew salvador MD [address] [facility] , [address], [place], [address], [place] [facility] 6 10:06:11 Degeneration of lumbar intervertebral disc 37965508 Active 2015 Mathew salvador MD [address] [facility] , [address], [place], [address], [place] [facility] 6 10:06:22 Problem Notes None recorded. Procedures Surgical History Date Name Laterality Status Provider Name and Address Organization Details Recorded Time 06/20/20 16 Lumbar Epidural steroid injection under fluoroscopic guidance completed Mathew Mancini MD [address] [facility] , [address], [place], [address], [place] [facility] 06/25/2016 13:59:52 05/09/20 16 Fluoroscopic Guided Lumbar Facet Steroid Injections of levels completed Mathew Mancini MD [address] [facility] , [address], [place], [address], [place] [facility] 05/14/2016 08:52:14 Tonsillectomy completed Pratibha Escalona [place] [facility] 04/26/2016 09:23:54 Imaging Results None recorded. Procedure Notes None recorded. Medical Equipment None Reported. Allergies No known drug allergies Medications Name Sig Start Date Stop Date Status Note LastModified by Organization Details LastModified Time cyclobenzap rine 10 mg tablet take 1 tablet by mouth at bedtime 04/30 completed Not Available Not Available Not Available amoxicillin 500 mg capsule 04/26 completed Not Available Not Available Not Available dextroamphe tamine-amph etamine 7.5 mg tablet 04/26 completed Not Available Not Available Not Available Mapap Extra Strength 500 mg tablet take 1 TO 2 tablets by mouth every 6 hours NEEDED FOR PAIN active Not Available Not Available No t Available Tylenol 500 mg capsule Take 2 tablets every 4-6 hours by oral route. active Not Available Not Available No t Available trazodone 50 mg tablet active Not Available Not Available Not Available meloxicam 15 mg tablet active Not Available Not Available Not Available clonazepam 0.5 mg tablet active Not Available Not Available Not Available acetaminoph en 300 mg-codeine 30 mg tablet active Not Available Not Available Not Available prochlorper azine maleate 10 mg tablet active Not Available Not Available No t Available tramadol 50 mg tablet 04/26 completed Not Available Not Available Not Available amoxicillin 500 mg tablet 06/20 completed Not Available Not Available Not Available lamotrigine 25 mg tablet 04/30 completed Not Available Not Available Not Available oxycodone-a cetaminophe n 5 mg-325 mg tablet active Not Available Not Available No t Available dextroamphe tamine sulfate ER 10 mg capsule,ext ended release 04/30 completed Not Available Not Available Not Available trazodone 100 mg tablet active Not Available Not Available Not Available hydrocodone 7.5 mg-acetamin ophen 325 mg tablet 04/26 completed Not Available Not Available Not Available dexamethaso ne 4 mg tablet 04/30 completed Not Available Not Available Not Available dextroamphe tamine-amph etamine 15 mg tablet 04/30 completed Not Available Not Available Not Available gabapentin 300 mg capsule 04/26 completed Not Available Not Available Not Available dextroamphe tamine-amph etamine ER 10 mg 24hr capsule,ext end release 04/26 completed Not Available Not Available Not Available gabapentin 100 mg capsule 04/30 completed Not Available Not Available Not Available ibuprofen 600 mg tablet 04/26 completed Not Available Not Available Not Available lamotrigine 100 mg tablet 04/30 completed Not Available Not Available Not Available naproxen 500 mg tablet active Not Available Not Available Not Available Ventolin HFA 90 mcg/actuati on aerosol inhaler 04/26 completed Not Available Not Available Not Available oxycodone 5 mg tablet active Not Available Not Available No t Available cyclobenzap rine 5 mg tablet take as directed 1-2 tablets by mouth three times a day DO NOT DRIVE WHILE TAKING THIS MEDICATIO N 06/04 completed Not Available Not Available Not Available Voltaren 1 % topical gel active Not Available Not Available Not Available Saphris (black hernandez) 10 mg sublingual tablet 04/26 completed Not Available Not Available Not Available ProAir RespiClick 90 mcg/actuati on breath activated inhale 2 puffs by mouth every 4 to 6 hours if needed active Not Available Not Available No t Available Afluria 6176-4314 (PF) 45 mcg(15 mcg x 3)/0.5 mL intramuscul ar syringe inject 0.5 millilite r intramusc ularly 04/26 completed Not Available Not Available Not Available Vitals Date Recorded Heart rate Oxygen saturation Oxygen saturation in Arterial blood by Pulse oximetry Body weight Body height Body mass index (BMI) Systolic blood pressure Diastolic blood pressure Provider Name and Address Organization Details Last Updated DateTime 6 80 /min 98 % 98 % 92637.0 1 g 170.18 cm 20.4 kg/m2 122 mm[Hg] 74 mm[Hg] Pratibha [facility] 6 09:10:08 Date Recorded Pain severity - 0-10 verbal numeric rating [Score] - Reported Provider Name and Address Organization Details Last Updated DateTime 04/26/2016 8 Not Available [facility] 8 05:02:12 Date Recorded Body height Heart rate Oxygen saturation Oxygen saturation in Arterial blood by Pulse oximetry Systolic blood pressure Diastolic blood pressure Provider Name and Address Organization Details Last Updated DateTime 6 170.18 cm 67 /min 98 % 98 % 124 mm[Hg] 60 mm[Hg] Pratibha [facility] 6 11:16:44 Date Recorded Body height Heart rate Oxygen saturation Oxygen saturation in Arterial blood by Pulse oximetry Systolic blood pressure Diastolic blood pressure Provider Name and Address Organization Details Last Updated DateTime 6 170.18 cm 90 /min 98 % 98 % 112 mm[Hg] 75 mm[Hg] Pratibha [facility] 6 09:59:24 Date Recorded Body height Body weight Body mass index (BMI) Heart rate Oxygen saturation Oxygen saturation in Arterial blood by Pulse oximetry Systolic blood pressure Diastolic blood pressure Provider Name and Address Organization Details Last Updated DateTime 6 170.18 cm 07881.0 1 g 20.4 kg/m2 86 /min 99 % 99 % 109 mm[Hg] 73 mm[Hg] Mathew salvador MD [address] , [address], [facility] [place], [address], [facility] 6 09:35:40 Social History Question Answer Notes LastModified by [employer] Details LastModified Time Tobacco Smoking Status Former Smoker Vapor cigarettes Not Available [facility] 05/27/2020 03:16:11 Which Illicit Or Recreational Drugs Have You Used? No [id number] Information not available 05/27/2020 Education 12 With Some College Information not available 04/26/2016 Live Alone Or With Others? With Others Information not available 04/26/2016 Marital Status [email or web address] Informatio n not available 04/26/2016 How Many Years Have You Smoked Tobacco? 25 [id number] Information not available 05/27/2020 Sex: Unknown Functional Status Question Answer Note LastModified by [employer] Details LastModified Time What is your level of alcohol consumption? None Sober for 6 years [id number] Information not available 05/27/2020 Are you currently employed? No [id number] Information not available 05/27/2020 Mental Status None recorded. Family History Relationship Description Onset Age of this Age Resolved Age Notes LastModified by Organization Details LastModified Time Father No current problems or disability [email or web address] Not available 04/26 09:19:15 Mother No current problems or disability [email or web address] Not available 04/26 09:19:15 Medical History Condition Response Anxiety Disorder Y Depression Y Asthma Y Headache Y Bipolar Disorder Y Past Encounters Encounter ID Performer Location Encounter Start Date Encounter Closed Date Diagnosis/Indication Diagnosis SNOMED-CT Code Diagnosis ICD10 Code Diagnosis Note [id number] Mathew Mancini MD PAIN OFFICE [address] [facility],[address] [facility] [place] [address] 04/26/2016 08:54:44 04/26/2016 13:44:19 Degeneration of lumbar intervertebral disc 55462527 M51.36 Lumbosacra l spondylosis without myelopathy 23874267 M47.817 [id number] Mathew Mancini MD PAIN OFFICE [address] [facility] [place] [address] 05/09/2016 11:07:10 05/17/2016 11:29:57 Degeneration of lumbar intervertebral disc 49949550 M51.36 Lumbosacra l spondylosis without myelopathy 24514461 M47.817 [id number] Mathew Mancini MD PAIN OFFICE [address] [facility] [place] [address] 06/04/2016 09:20:57 06/04/2016 20:15:49 Degeneration of lumbar intervertebral disc 80075104 M51.36 Lumbosacra l spondylosis without myelopathy 34341721 M47.817 [id number] Mathew Mancini MD PAIN OFFICE [address] [facility] [place] [address] 06/20/2016 09:01:30 06/24/2016 09:27:30 Degeneration of lumbar intervertebral disc 53258650 M51.36 Lumbosacra l spondylosis without myelopathy 84252929 M47.817 Health Concerns Section Related Observation LastModified by Organization Detai ls LastModified Time None Recorded Concern Status LastModified by Organization Details LastModified Time None Recorded Advance Directives Directive None Recorded Payers Encounter Date Sequence Insurance Name Policy Number Policy Muller Covered Member ID Muller Member ID Guarantor Name 04/26/2016 2 [place] [id number] Sylvester [place] 04/26/2016 1 [place] [employer] Sylvester R [place] [id number] Sylvester [place] 05/09/2016 2 [place] [id number] Sylvester [place] 05/09/2016 1 [place] [employer] Sylvester R [place] [id number] Sylvester [place] 06/04/2016 2 [place] [id number] Sylvester [place] 06/04/2016 1 [place] [employer] Sylvester Salvador [id number] Sylvester Salvador 06/20/2016 2 [place] [facility] Sylvester Salvador [id number] Sylvester Salvador 06/20/2016 1 [place] [facility] Sylvester Salvador [id number] Sylvester Salvador Notes Date Note Type Note Provider Name and Address Organization Details Recorded Time 04/26/2016 text/html Pain Management L-spineReported bypatient.Location :Sylvester Salvador is a 40 year old man with low back pain , right side is greater than left. 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 He had to stop working in three months due to pain Quality:throbbing; tightness;burning; aching;sharp; He describes the pain as a sharp stabbing pain . He has lost a lot of weight and states he still has persistent pain in his low back. Severity:current pain level 8/10; worst pain 10/10;interference with sleep;interference with work Duration:constant Onset/Timing:sudde n Context:lifting; twisting; He had a recent fall on his tail bone and feels he has an exacerbation of his pain since the fall. He also has upper back pain for which he had physical therapy for pulled muscles. He had to stop PT due to increasing low back pain. Alleviating Factors:medication ; Oxycodone helps Aggravating Factors:standing; walking Associated Symptoms:no weakness; no numbness; no bladder compromise; no bowel compromise Radiation:none Work Related:no ADL (Activities of Daily Living):improve with medication Prior Imaging:MRI Prior EMG:normal; He had an EMG/NCV study one year ago which was within normal limits. Previous Injections:none Previous PT:none; He is doing a home exercise program recommended by his PCP. Previous student career development specialist:none Mathew Mancini MD [address] [facility] [facility] , [address], [place], [address], [facility] Pain Management 04/30/2016 13:47:20 05/09/2016 text/html He is here for a right lumbar facet joint injection under fluoroscopic guidance Mathew Mancini MD [address] [facility] , [address], [place], [address], [facility] Management 06/01/2016 09:54:42 06/04/2016 text/html He is here for a follow up after lumbar facet joint injections under fluoroscopic guidance. He reports 50% pain benefit for 2 weeks. He states he has persistent low back pain which now radiates into both buttock region and he has difficulty bending forward. He feels his activity level is reduced due to pain. He has had a MRI Lumbar spine which shows desiccation of L3-? ? ?L4 is noted and associated mild? ? ?-moderate loss of disc space height. There is disc osteophyte complex with minimal foraminal narrowing. He has no history of bladder or bowel incontinence. Mathew Mancini MD [address] [facility] , [address], [place], [address], [facility] Pain Management 06/13/2016 09:45:37 06/20/2016 text/html He is here for a trial of lumbar epidural steroid injection under fluoroscopic guidance. Mathew Mancini MD [address] [facility] , [address], [place], [address], [facility] Pain Management 06/26/2016 09:00:21
--- OUTSIDE RECORDS SUMMARY | 2024-12-23 12:02 | XMS_ITS | Patient Health Record ---
Author Organization [facility] Address [address] [place] [address] Care Team Providers Care Center Human Resources Manager Name Role Phone Haris Landeros MD Primary Care Provider Unavail able Christo Cooper Unavailable [phone] Allergies Allergen (clinical drug ingredient) Drug/Non Drug Allergy documented on EMR Reaction Allergy Type Onset Date Status nsaids Bleeding Drug Allergy Active Reason For Referral No Information Medications Medication SIG (Take, Route, Frequency, Duration) Notes Start Date End Date Status Doxycycline Hyclate Active Cyclobenzaprine HCl Active Probiotic Active traMADol HCl 50 MG 1 tablet as needed O rally every 6 hrs for as needed 06/22/2015 Not-Ta jacque ProAir HFA Active Flonase Active Saphris 10 MG 1 tablet under the t ongue and allow to dissolve Sublingual Twice a day Not-Takin g Nicotine Active clonazePAM 0.5 MG (Schedule IV Drug) O ral for 030 Active Minocycline HCl Acti ve rifAMPin Active Tinidazole Active Fluarix Quadrivalent Active Belbuca Active Prazosin HCl Active traZODone HCl Active Magnesium Citrate Ac tive Topiramate Active Social History Tobacco use other than smoking: Question Answer Notes Are you an other tobacco user? 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) Active confirmed Problem 141963103 -Arthritis of foot, right, degenerative (M19.071) Active confirmed Problem 686197137 Posterior tibial tendonitis of right leg (M76.821) Active confirmed Problem 3030052 Tailor's bunion of left foot (M21.622) Active confirmed Problem 9274605 Tailor's bunion of right foot (M21.621) Active confirmed Plan Of Treatment No Information Insurance Providers Payer Name Payer Address Payer Phone Subscriber Number Group Number Insured Name Patient Relationship to Insured Coverage Start Date Coverage End Date Medicare [employer] [address] [place] [address] [id number] [place] Sylvester Self - patient is the insured Medical (General) History Medical History History ICD Code Anxiety Chicken pox Depression Lyme disease Psychiatric disorder Surgical History Surgery Date(Month/Year) tonsillectomy Hospitalization History Reason Date(Month/Year) Colonoscopy & Endoscopy 08/2016
== END 2024-12-23 11:20 | disposition home or self-care (01) ==
LOC: HO.PMC 10:59
PROVIDERS: PCP Pediatrics; Visit Provider Anesthesiology
DX: M53.3 Sacrococcygeal disorders, not elsewhere classified (principal); M46.1 Sacroiliitis, not elsewhere classified; M47.816 Spondylosis without myelopathy or radiculopathy, lumbar region; G89.4 Chronic pain syndrome
CPT/HCPCS: 99213

== ENCOUNTER → 2024-12-23 10:59 | Outpatient (BNVA) | payer MEDICARE, MEDICAID, SELFPAY | PROVIDERS: PCP Pediatrics; Visit Provider Anesthesiology | DX: M53.3 Sacrococcygeal disorders, not elsewhere classified (principal); M46.1 Sacroiliitis, not elsewhere classified; M47.816 Spondylosis without myelopathy or radiculopathy, lumbar region; G89.4 Chronic pain syndrome | CPT/HCPCS: 99212 ==